=== PATIENT | male | born 1995 | race Caucasian/White ===

== ENCOUNTER 2018-02-19 22:50 | Emergency (ER) | payer OTHER ==
[2018-02-19 23:41] LABS: Absolute Lymphocytes (CBC) 3.4 K/uL (0.7-4.9); Absolute Monocytes 1.2 K/uL (0.1-1.3); Basophils % 0.4 % (0-1.3); Eosinophils % 2.8 % (0-4.4); Hematocrit 45.9 % (39.6-49.0); Lymphocytes % 28.7 % (15.3-44.8); MCH 30.7 pg (27.0-35.0); MPV 8.5 fL (7.6-11.3); Monocytes % 10.2 % (3.3-12.3); RBC Red Blood Cell Count 5.21 M/uL (4.33-5.43)
[2018-02-19 23:45] LABS: Protime INR 0.94
[2018-02-19 23:50] LABS: Barbiturates NEGATIVE (NEGATIVE); Benzodiazepines NEGATIVE (NEGATIVE); Cocaine NEGATIVE (NEGATIVE); METHAMPHETAM NEGATIVE (NEGATIVE); Methadone NEGATIVE (NEGATIVE); Opiates NEGATIVE (NEGATIVE); Phencyclidine NEGATIVE (NEGATIVE); THC Cannibis POSITIVE (NEGATIVE)
[2018-02-20 00:01] LABS: ALT/SGPT 31 U/L (12-78); AST/SGOT 18 U/L (15-37); Albumin 3.7 g/dL (3.4-5.0); Alkaline Phosphatase 83 U/L (45-117); BUN Blood Urea Nitrogen 12 mg/dL (7-18); Bicarbonate 25 mmol/L (21-32); Bilirubin Direct 0.1 mg/dL (0-0.2); Bilirubin Total 0.3 mg/dL (0.2-1.0); Glucose Level 118 mg/dL (74-106); Potassium 3.9 mmol/L (3.5-5.1); Protein, Total 7.7 g/dL (6.4-8.2); Sodium Level 140 mmol/L (136-145)
[2018-02-20 01:01] LABS: Urine Blood NEGATIVE (NEG); Urine Glucose NEGATIVE (NEG); Urine Protein 1+ (NEG); Urine pH 8.5 (5.0-7.0)
--- NOTE | 2018-02-20 02:56 | ER ---
Nurse's Notes [facility] Name: Kirk Cota Age: 22 yrs Sex: Male : 1995 Arrival Date: 02/19/2018 Time: 22:59 Bed 20 Private MD: Diagnosis: Unspecified abdominal pain;Cannabis abuse Presentation: 02/19 23:06 Presenting complaint: Patient states: generalized abd pain with nausea. Transition of ak1 care: patient was received from another setting of care (rehabilitation facility). Onset of symptoms is unknown. Risk Assessment: Do you want to hurt yourself or someone else? Patient reports no desire to harm self or others. Initial Sepsis Screen: Does the patient meet any 2 criteria? No. Patient's initial sepsis screen is negative. Does the patient have a suspected source of infection? No. Patient's initial sepsis screen is negative. Note pt from [facility] in [place]. 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 pt not answering questions willingly. pt has airfield engineer officer appointment Monday03/01/18 and expressed concert to Georges of returning to "residential". Care prior to arrival: None. 23:06 Acuity: MIRTA 3 ak1 23:06 Method Of Arrival: Wheelchair ak1 Historical: - Allergies: 23:10 No Known Allergies; ak1 - Home Meds: 23:10 None [Active]; ak1 - PMHx: 23:10 Seizures; Bipolar disorder; ak1 - PSHx: 23:10 None; ak1 - Immunization history:: Adult Immunizations unknown. - Social history:: Smoking status: Patient uses tobacco products, smokes two packs cigarettes per day. - Ebola Screening: : No symptoms or risks identified at this time. Screenin:11 Abuse screen: Denies threats or abuse. Denies injuries from another. Nutritional ak1 screening: No deficits noted. Tuberculosis screening: No symptoms or risk factors identified. Fall Risk None identified. Assessment: 23:07 General: Appears distressed, uncomfortable, unkempt, Behavior is inappropriate for age, jl3 uncooperative, Pt c/o abd pain, moaning, growling, making gutteral sounds. Family members responding for pt, state pt c/o abd pain. Family stases hx meth use. Pain: Complains of pain in abdomen. Vital Signs: 23:05 BP 150 / 90; Pulse 91; Resp 24; Temp 98.8(O); Pulse Ox 100% on R/A; Weight 90.72 kg ak1 (R); Height 6 ft. 1 in. (185.42 cm) (R); Pain 10/10; 02/20 00:51 BP 115 / 55; Pulse 67; Resp 14; Pulse Ox 98% ; Pain 3/10; jl3 03:23 BP 118 / 60; Pulse 68; Resp 16; Pulse Ox 100% ; Pain 0/10; jl3 02/19 23:05 Body Mass Index 26.39 (90.72 kg, 185.42 cm) ak1 ED Course: 02/19 22:59 Patient arrived in ED. jl3 22:59 Alfonso Tomas RN is Primary Nurse. jl3 23:00 Georges Spencer NP is PHCP. pm1 23:00 Osvaldo Hernandez MD is Attending Physician. pm1 23:08 Inserted saline lock: 22 gauge in right antecubital area, using aseptic technique. oe Blood collected. 23:09 Triage completed. ak1 23:10 Arm band placed on Patient placed in an exam room, on a stretcher, on cardiac specialist, ak1 on pulse oximetry, Patient notified of wait time. 23:11 Patient has correct armband on for positive identification. Placed in gown. Bed in low ak1 position. Call light in reach. Side rails up X2. Adult w/ patient. ekg monitor on. Pulse ox on. NIBP on. 23:56 Radiology exam delayed due to lab results not completed at this time. (BUN/Creatinine). kw1 02/20 01:[address] via wheelchair. kw1 01:35 CT Abd/Pelvis - W/Contrast: IV contrast only In Process Unspecified. EDMS 01:37 CT completed. Patient tolerated procedure well. Patient moved back from CT. kw1 02:55 Norbert Evans MD is Referral Physician. pm1 03:22 No provider procedures requiring assistance completed. IV discontinued, intact, jl3 bleeding controlled, No redness/swelling at site. Pressure dressing applied. Administered Medications: 03:04 Drug: GI Cocktail without - (Maalox Suspension 30 ml, Lidocaine Liquid 2 % 15 jl3 ml) Route: PO; 03:22 Follow up: Response: No adverse reaction jl3 Outcome: 02:55 Discharge ordered by . pm1 03:23 Discharged to home with friend. jl3 03:23 Condition: improved 03:23 Discharge instructions given to patient, friend, Prescriptions given X 1. 03:24 Patient left the ED. jl3 Signatures: Dispatcher [employer] EDAlfonso Ferris RN RN jl3 Kinjal House RN RN ak1 Georges Spencer, CAR UNLOADER CAR UNLOADER pm1 Rogelio Purcell Kimberly kw1
--- NOTE | 2018-02-20 02:56 | EDPHYS ---
Physician Documentation [facility] Name: Kirk Cota Age: 22 yrs Sex: Male : 1995 Arrival Date: 02/19/2018 Time: 22:59 Bed 20 Private MD: ED Physician Osvaldo Hernandez HPI: 02/20 00:00 This 22 yrs old Male presents to ER via Wheelchair with complaints of pm1 abdominal pain. 00:00 The patient presents with abdominal pain that is diffuse. Onset: The symptoms/episode pm1 began/occurred 3 month(s) ago. The symptoms do not radiate. Associated signs and symptoms: Pertinent negatives: nausea, vomiting, and diarrhea, chest pain, dysuria, fever, shortness of breath. The symptoms are described as burning. Modifying factors: The symptoms are alleviated by nothing, the symptoms are aggravated by food. Severity of pain: in the emergency department the pain is unchanged. The patient has not recently seen a physician. 00:00 [facility]. pm1 Historical: - Allergies: 02/19 23:10 No Known Allergies; ak1 - Home Meds: 23:10 None [Active]; ak1 - PMHx: 23:10 Seizures; Bipolar disorder; ak1 - PSHx: 23:10 None; ak1 - Immunization history:: Adult Immunizations unknown. - Social history:: Smoking status: Patient uses tobacco products, smokes two packs cigarettes per day. - Ebola Screening: : No symptoms or risks identified at this time. ROS: 02/20 00:00 Constitutional: Negative for fever, chills, and weight loss, Eyes: Negative for injury, pm1 pain, redness, and discharge, ENT: Negative for injury, pain, and discharge, Neck: Negative for injury, pain, and swelling, Cardiovascular: Negative for chest pain, palpitations, and edema, Respiratory: Negative for shortness of breath, cough, wheezing, and pleuritic chest pain. Back: Negative for injury and pain, : Negative for injury, bleeding, discharge, and swelling, MS/Extremity: Negative for injury and deformity, Skin: Negative for injury, rash, and discoloration, Neuro: Negative for headache, weakness, numbness, tingling, and seizure. Abdomen/GI: Positive for abdominal pain, Negative for nausea, vomiting, and diarrhea. Exam: 00:00 Constitutional: This is a well developed, well nourished patient who is awake, alert, pm1 and in no acute distress. Head/Face: Normocephalic, atraumatic. Eyes: Pupils equal round and reactive to light, extra-ocular motions intact. Lids and lashes normal. Conjunctiva and sclera are non-icteric and not injected. Cornea within normal limits. Periorbital areas with no swelling, redness, or edema. ENT: Nares patent. No nasal discharge, no septal abnormalities noted. Tympanic membranes are normal and external auditory canals are clear. Oropharynx with no redness, swelling, or masses, exudates, or evidence of obstruction, uvula midline. Mucous membranes moist. Neck: Trachea midline, no thyromegaly or masses palpated, and no cervical lymphadenopathy. Supple, full range of motion without nuchal rigidity, or vertebral point tenderness. No Meningismus. Chest/axilla: Normal chest wall appearance and motion. Nontender with no deformity. No lesions are appreciated. Cardiovascular: Regular rate and rhythm with a normal S1 and S2. No gallops, murmurs, or rubs. Normal PMI, no JVD. No pulse deficits. Respiratory: Lungs have equal breath sounds bilaterally, clear to auscultation and percussion. No rales, rhonchi or wheezes noted. No increased work of breathing, no retractions or nasal flaring. Abdomen/GI: Soft, non-tender, with normal bowel sounds. No distension or tympany. No guarding or rebound. No evidence of tenderness throughout. Back: No spinal tenderness. No costovertebral tenderness. Full range of motion. Skin: Warm, dry with normal turgor. Normal color with no rashes, no lesions, and no evidence of cellulitis. MS/ Extremity: Pulses equal, no cyanosis. Neurovascular intact. Full, normal range of motion. Vital Signs: 02/19 23:05 BP 150 / 90; Pulse 91; Resp 24; Temp 98.8(O); Pulse Ox 100% on R/A; Weight 90.72 kg ak1 (R); Height 6 ft. 1 in. (185.42 cm) (R); Pain 10/10; 02/20 00:51 BP 115 / 55; Pulse 67; Resp 14; Pulse Ox 98% ; Pain 3/10; jl3 03:23 BP 118 / 60; Pulse 68; Resp 16; Pulse Ox 100% ; Pain 0/10; jl3 02/19 23:05 Body Mass Index 26.39 (90.72 kg, 185.42 cm) ak1 MDM: 02/19 23:00 Patient medically screened. pm1 02/20 02:54 Data reviewed: vital signs. Data interpreted: Pulse oximetry: on room air is 98 %. pm1 Interpretation: normal. 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 02/19 23:05 Order name: Acetaminophen; Complete Time: 01:05 pm1 02/19 23:05 Order name: Basic Metabolic Panel; Complete Time: 01:05 pm1 02/19 23:05 Order name: CBC with Diff; Complete Time: 23:57 pm1 02/19 23:05 Order name: ETOH Level; Complete Time: 23:57 pm1 02/19 23:05 Order name: Hepatic Function; Complete Time: 01:05 pm1 02/19 23:05 Order name: PT-INR; Complete Time: 23:57 pm1 02/19 23:05 Order name: Ptt, Activated; Complete Time: 23:57 pm1 02/19 23:05 Order name: Salicylate; Complete Time: 23:57 pm1 02/19 23:05 Order name: Urine Drug Screen; Complete Time: 23:57 pm1 02/19 23:11 Order name: CT Abd/Pelvis - W/Contrast: IV contrast only pm1 02/19 23:28 Order name: Urine Dipstick--Ancillary (enter results); Complete Time: 01:05 cc 02/19 23:33 Order name: Troponin (emerg Dept Use Only) pm1 02/19 23:33 Order name: Troponin (Emerg Dept Use Only); Complete Time: 00:02 EDMS 02/19 23:05 Order name: EKG; Complete Time: 23:06 pm1 02/19 23:05 Order name: EKG - Nurse/Tech; Complete Time: 23:19 pm1 02/19 23:05 Order name: IV Saline Lock; Complete Time: 23:19 pm1 02/19 23:05 Order name: Labs collected and sent; Complete Time: 23:19 pm1 02/19 23:05 Order name: Urine Dipstick-Ancillary (obtain specimen); Complete Time: 23:19 pm1 Administered Medications: 03:04 Drug: GI Cocktail without - (Maalox Suspension 30 ml, Lidocaine Liquid 2 % 15 jl3 ml) Route: PO; 03:22 Follow up: Response: No adverse reaction jl3 Disposition: 03:30 Co-signature as Attending Physician, Osvaldo Hernandez MD. pkl Disposition: 02/20/18 02:55 Discharged to Home. Impression: Unspecified abdominal pain, Cannabis abuse. - Condition is Stable. - Discharge Instructions: Abdominal Pain, Adult, Cannabis Use Disorder. - Prescriptions for Pepcid 20 mg Oral Tablet - take 1 tablet by ORAL route every 12 hours for 10 days; 20 tablet. - Medication Reconciliation Form, Thank You Letter form. - Follow up: Emergency Department; When: As needed; Reason: Worsening of condition. Follow up: Norbert Evans MD; When: 2 - 3 days; Reason: Recheck today's complaints, Continuance of care, Re-evaluation by your physician. - Problem is new. - Symptoms have improved. Signatures: Dispatcher [employer] EDMS Osvaldo Hernandez MD MD pkl Alfonso Tomas RN RN jl3 Kinjal House RN RN ak1 Georges Spencer, GROCERY CLERK GROCERY CLERK pm1 Corrections: (The following items were deleted from the chart) 03:24 02:55 02/20/2018 02:55 Discharged to Home. Impression: Unspecified abdominal pain; jl3 Cannabis abuse. Condition is Stable. Forms are Medication Reconciliation Form, Thank You Letter, Antibiotic Education, Prescription Opioid Use. Follow up: Emergency Department; When: As needed; Reason: Worsening of condition. Follow up: Norbert Evans; When: 2 - 3 days; Reason: Recheck today's complaints, Continuance of care, Re-evaluation by your physician. Problem is new. Symptoms have improved. pm1
[2018-02-20] MEDS ORDERED: MAGNE/ALUM HYDROXD 30 ML UCUP ONE (03:04)
[2018-02-20] MEDS ORDERED: LIDOCAINE VISCOUS 2% SOLN 15 ML UDC ONE (03:04)
--- NOTE | 2018-02-20 06:20 | EKG ---
Test Date: 2018-02-19 Test Time: 23:31:47 Colorist: MEI MEASUREMENT RESULTS: Intervals: Rate: 79 TN: 152 QRSD: 88 QT: 320 QTc: 366 Novi: P: 41 TN: 152 QRS: -44 T: 48 INTERPRETIVE STATEMENTS: Normal sinus rhythm with sinus arrhythmia Left axis deviation ST abnormality, non specific Abnormal ECG No previous ECG available for comparison Electronically Signed On 02-20-18 06:19:59 CDT by Deshawn Thornton
--- NOTE | 2018-02-20 08:40 | RAD REPORT ---
EXAM DESCRIPTION: CT - Abdomen Pelvis W Contrast - 02/20/2018 3:17 am CLINICAL HISTORY: Abdominal pain with nausea. COMPARISON: none. TECHNIQUE: Computed axial tomography of the abdomen pelvis was obtained. 100 cc Isovue-300 was admin istered intravenously. Oral contrast was not requested which limits evaluation of bowel.A preliminary report was generated by [employer] and reviewed prior to this dictation All CT scans are performed using dose optimization technique as appropriate and may include automated exposure control or mA/KV adjustment according to patient size. FINDINGS: The liver, spleen, pancreas, adrenal and kidneys appear unremarkable. There is no evidence of diverticulitis. The appendix is normal A moderate amount of stool is present throughout the colon. A tiny umbilical hernia is seen. IMPRESSION: Moderate amount of stool throughout the colon
== END 2018-02-20 03:24 | disposition home or self-care (01) ==
LOC: ER 22:50
DX: F12.10 Cannabis abuse, uncomplicated (principal); F17.210 Nicotine dependence, cigarettes, uncomplicated
CPT/HCPCS: 36415; 74177; 80048; 80076; 80307; 80320; 80329; 81003; 84484; 85025; 85610; 85730; 93005; 99285

== ENCOUNTER 2018-04-25 20:48 | Emergency (ER) | payer OTHER ==
--- NOTE | 2018-04-25 21:39 | ER ---
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 Patient aj is awake and alert in triage. Reports HX of epilepsy, not currently taking medications. Transition of care: patient was not received from another setting of care. Onset of symptoms was April 25, 2018. Risk Assessment: Do you want to hurt yourself or someone else? Patient reports no desire to harm self or others. Initial Sepsis Screen: Does the patient meet any 2 criteria? No. Patient's initial sepsis screen is negative. Does the patient have a suspected source of infection? No. Patient's initial sepsis screen is negative. Care prior to arrival: None. 20:59 Method Of Arrival: Wheelchair aj 20:59 Acuity: MIRTA 3 aj Triage Assessment: 21:00 General: Appears in no apparent distress. comfortable, Behavior is calm, cooperative, aj appropriate for age. Pain: Denies pain. Neuro: Level of Consciousness is awake, alert, obeys commands, Oriented to person, place, time, situation, Appropriate for age Date Pitter are equal bilaterally Moves all extremities. Full function Speech is normal, Facial symmetry appears normal, Seizure activity reported prior to arrival. Respiratory: Airway is patent Respiratory effort is even, unlabored, Respiratory pattern is regular, symmetrical. Derm: Skin is intact, is healthy with good turgor, Skin is pink, warm \T\ dry. normal. Historical: - Allergies: 21:00 No Known Allergies; aj - Home Meds: 21:00 None [Active]; aj - PMHx: 21:00 Bipolar disorder; Seizures; aj - PSHx: 21:00 None; aj - Immunization history:: Adult Immunizations up to date. - Social history:: Smoking status: Patient uses tobacco products, smokes one pack cigarettes per day. - Ebola Screening: : Patient negative for fever greater than or equal to 101.5 degrees Fahrenheit, and additional compatible Ebola Virus Disease symptoms Patient denies exposure to infectious person Patient denies travel to an Ebola-affected area in the 21 days before illness onset No symptoms or risks identified at this time. Screenin:00 Abuse screen: Denies threats or abuse. Denies injuries from another. Nutritional aa1 screening: No deficits noted. Tuberculosis screening: No symptoms or risk factors identified. Fall Risk None identified. Assessment: 21:00 General: Appears in no apparent distress. comfortable, Behavior is calm, cooperative, aa1 appropriate for age. Pain: Denies pain. Neuro: Level of Consciousness is awake, alert, obeys commands, Oriented to person, place, time, situation, Moves all extremities. Full function Gait is steady, Speech is normal, Facial symmetry appears normal, Pupils are PERRLA, Denies blurred vision dizziness, headache. Cardiovascular: Denies chest pain, palpitations, Heart tones S1 S2 present Rhythm is regular. Respiratory: Airway is patent Respiratory effort is even, unlabored, Respiratory pattern is regular, symmetrical. GI: No signs and/or symptoms were reported involving the gastrointestinal system. : No signs and/or symptoms were reported regarding the genitourinary system. EENT: No signs and/or symptoms were reported regarding the EENT system. Derm: Skin is intact, is healthy with good turgor, Skin is pink, warm \T\ dry. Musculoskeletal: Circulation, motion, and sensation intact. Capillary refill < 3 seconds. 21:52 Reassessment: Patient appears in no apparent distress at this time. Patient is alert, aa1 oriented x 3, equal unlabored respirations, skin warm/dry/pink. Discussed d/c \T\ f/u instructions with pt \T\ friend; denies questions or concerns at this time Patient denies pain at this time. Patient states feeling better. Vital Signs: 21:00 BP 136 / 81; Pulse 91; Resp 18; Temp 98.6; Pulse Ox 99% on R/A; Weight 81.65 kg; Height aj 6 ft. 0 in. (182.88 cm); 21:52 BP 112 / 82; Pulse 85; Resp 18; Pulse Ox 99% on R/A; Pain 0/10; aa1 21:00 Body Mass Index 24.41 (81.65 kg, 182.88 cm) aj ED Course: 20:49 Patient arrived in ED. al2 21:00 Triage completed. aj 21:00 Arm band placed on left wrist. Patient placed in an exam room. aj 21:00 Patient has correct armband on for positive identification. Bed in low position. Call aa1 light in reach. personnel monitor on. Pulse ox on. NIBP on. Warm blanket given. 21:03 Umang Valladares MD is Attending Physician. 21:40 Charlie Gomez MD is Referral Physician. 21:48 Azalia Holley, RN is Primary Nurse. aa1 21:52 No provider procedures requiring assistance completed. Patient did not have IV access aa1 during this emergency room visit. Administered Medications: 21:52 Drug: Dilantin 500 mg Route: PO; aa1 21:54 Follow up: Response: Medication administered at discharge. aa1 Outcome: 21:39 Discharge ordered by MD. 21:52 Discharged to home ambulatory, with friend. aa1 21:52 Condition: good 21:52 Discharge instructions given to patient, Instructed on discharge instructions, follow up and referral plans. medication usage, Demonstrated understanding of instructions, follow-up care, medications, Prescriptions given X 1. 21:55 Patient left the ED. aa1 Signatures: Azalia Holley, JAMARCUS RN aa Radha Hart RN RN Umang Valladares MD MD gs Love, Mague bell
--- NOTE | 2018-04-25 21:40 | EDPHYS ---
Physician Documentation [facility] Name: Kirk Cota Age: 22 yrs Sex: Male : 1995 Arrival Date: 04/25/2018 Time: 20:49 Bed 20 Private MD: ED Physician Umang Valladares HPI: 04/25 21:33 This 22 yrs old Male presents to ER via Wheelchair with complaints of gs POSSIBLE SEIZURE. 21:33 The patient presents after having a single isolated seizure, that lasted. Character of gs seizure(s): Loss of consciousness: the patient experienced loss of consciousness, Motor activity: generalized, Incontinence: incontinent of bladder. Seizure onset: just prior to arrival. Seizure Hx: Last seizure: The patient's last seizure was approximately 1 week(s) ago, has been on dilantin when incarcerated, now out and out of meds having seizures. Historical: - Allergies: 21:00 No Known Allergies; aj - Home Meds: 21:00 None [Active]; aj - PMHx: 21:00 Bipolar disorder; Seizures; aj - PSHx: 21:00 None; aj - Immunization history:: Adult Immunizations up to date. - Social history:: Smoking status: Patient uses tobacco products, smokes one pack cigarettes per day. - Ebola Screening: : Patient negative for fever greater than or equal to 101.5 degrees Fahrenheit, and additional compatible Ebola Virus Disease symptoms Patient denies exposure to infectious person Patient denies travel to an Ebola-affected area in the 21 days before illness onset No symptoms or risks identified at this time. ROS: 21:33 All other systems are negative. gs Exam: 21:33 Head/Face: Normocephalic, atraumatic. Eyes: Pupils equal round and reactive to light, gs extra-ocular motions intact. Lids and lashes normal. Conjunctiva and sclera are non-icteric and not injected. Cornea within normal limits. Periorbital areas with no swelling, redness, or edema. ENT: Nares patent. No nasal discharge, no septal abnormalities noted. Tympanic membranes are normal and external auditory canals are clear. Oropharynx with no redness, swelling, or masses, exudates, or evidence of obstruction, uvula midline. Mucous membranes moist. Neck: Trachea midline, no thyromegaly or masses palpated, and no cervical lymphadenopathy. Supple, full range of motion without nuchal rigidity, or vertebral point tenderness. No Meningismus. Chest/axilla: Normal chest wall appearance and motion. Nontender with no deformity. No lesions are appreciated. Cardiovascular: Regular rate and rhythm with a normal S1 and S2. No gallops, murmurs, or rubs. Normal PMI, no JVD. No pulse deficits. Respiratory: Lungs have equal breath sounds bilaterally, clear to auscultation and percussion. No rales, rhonchi or wheezes noted. No increased work of breathing, no retractions or nasal flaring. Abdomen/GI: Soft, non-tender, with normal bowel sounds. No distension or tympany. No guarding or rebound. No evidence of tenderness throughout. Back: No spinal tenderness. No costovertebral tenderness. Full range of motion. Skin: Warm, dry with normal turgor. Normal color with no rashes, no lesions, and no evidence of cellulitis. MS/ Extremity: Pulses equal, no cyanosis. Neurovascular intact. Full, normal range of motion. Neuro: Awake and alert, GCS 15, oriented to person, place, time, and situation. Cranial nerves II-XII grossly intact. Motor strength 5/5 in all extremities. Sensory grossly intact. Cerebellar exam normal. Normal gait. 21:33 Constitutional: The patient appears alert, awake. Vital Signs: 21:00 BP 136 / 81; Pulse 91; Resp 18; Temp 98.6; Pulse Ox 99% on R/A; Weight 81.65 kg; Height aj 6 ft. 0 in. (182.88 cm); 21:52 BP 112 / 82; Pulse 85; Resp 18; Pulse Ox 99% on R/A; Pain 0/10; aa1 21:00 Body Mass Index 24.41 (81.65 kg, 182.88 cm) aj MDM: 21:30 Patient medically screened. 21:33 Data reviewed: vital signs, nurses notes. Counseling: I had a detailed discussion with gs the patient and/or guardian regarding: the historical points, exam findings, and any diagnostic results supporting the discharge/admit diagnosis, the presence of at least one elevated blood pressure reading (>120/80) during this emergency department visit, lab results. Response to treatment: the patient's symptoms have resolved after treatment, and as a result, I will discharge patient. Special discussion: I have referred the patient to see his PCP for further evaluation of high blood pressure. Administered Medications: 21:52 Drug: Dilantin 500 mg Route: PO; aa1 21:54 Follow up: Response: Medication administered at discharge. aa1 Disposition: 04/25/18 21:39 Discharged to Home. Impression: Epilepsy and recurrent seizures. - Condition is Stable. - Discharge Instructions: Seizure, Adult. - Prescriptions for Dilantin Kapseal 100 mg Oral Capsule - take 3 capsule by ORAL route Every night; 30 capsule. - Medication Reconciliation Form, Thank You Letter, Antibiotic Education, Prescription Opioid Use form. - Follow up: Private Physician; When: 2 - 3 days; Reason: Re-evaluation by your physician. Follow up: Charlie Gomez MD; When: 2 - 3 days; Reason: Re-evaluation by your physician. Signatures: Azalia Holley RN RN aa1 Radha Hart RN RN aj Umang Valladares MD MD Corrections: (The following items were deleted from the chart) 21:40 21:39 04/25/2018 21:39 Discharged to Home. Impression: Epilepsy and recurrent seizures. gs Condition is Stable. Forms are Medication Reconciliation Form, Thank You Letter, Antibiotic Education, Prescription Opioid Use. Follow up: Private Physician; When: 2 - 3 days; Reason: Re-evaluation by your physician. 21:55 21:40 04/25/2018 21:39 Discharged to Home. Impression: Epilepsy and recurrent seizures. aa1 Condition is Stable. Discharge Instructions: Seizure, Adult. Prescriptions for Dilantin Kapseal 100 mg Oral Capsule - take 3 capsule by ORAL route Every night; 30 capsule. and Forms are Medication Reconciliation Form, Thank You Letter, Antibiotic Education, Prescription Opioid Use. Follow up: Private Physician; When: 2 - 3 days; Reason: Re-evaluation by your physician. Follow up: Charlie Gomez; When: 2 - 3 days; Reason: Re-evaluation by your physician. gs
[2018-04-25] MEDS ORDERED: PHENYTOIN ER 100 MG CAP PO ONE (21:51)
== END 2018-04-25 21:55 | disposition home or self-care (01) ==
LOC: ER 20:48
DX: G40.909 Epilepsy, unspecified, not intractable, without status epilepticus (principal); F17.210 Nicotine dependence, cigarettes, uncomplicated
CPT/HCPCS: 99284

== ENCOUNTER 2018-05-08 20:49 | Emergency (ER) | payer OTHER ==
[2018-05-08] MEDS ORDERED: FOSPHENYTOIN PE 500 MG/10 ML VIAL ONE (21:21)
[2018-05-08] MEDS ORDERED: NA CHLORIDE 0.9% 1,000 ML ONE (21:21)
[2018-05-08] MEDS ORDERED: NA CHLORIDE 0.9% 100 ML IV ONE (21:24)
[2018-05-08 21:34] LABS: Absolute Lymphocytes (CBC) 2.4 K/uL (0.7-4.9); Absolute Monocytes 0.9 K/uL (0.1-1.3); Absolute Neutrophil 5.1 K/uL (1.8-8.0); Basophils % 0.8 % (0-1.3); Eosinophils % 4.1 % (0-4.4); Hematocrit 41.9 % (39.6-49.0); Lymphocytes % 27.3 % (15.3-44.8); MPV 8.1 fL (7.6-11.3); Monocytes % 9.9 % (3.3-12.3); RBC Red Blood Cell Count 4.64 M/uL (4.33-5.43)
[2018-05-08] MEDS ORDERED: IBUPROFEN 400 MG TAB ONE (21:47)
[2018-05-08 22:04] LABS: ALT/SGPT 27 U/L (12-78); AST/SGOT 14 U/L (15-37); Albumin 3.2 g/dL (3.4-5.0); Alkaline Phosphatase 74 U/L (45-117); BUN Blood Urea Nitrogen 18 mg/dL (7-18); Bicarbonate 26 mmol/L (21-32); Bilirubin Direct < 0.1 mg/dL (0-0.2); Bilirubin Total 0.1 mg/dL (0.2-1.0); Glucose Level 100 mg/dL (74-106); Lipase 160 U/L (73-393); Phenytoin (Dilantin) Level 3.5 ug/mL (10.0-20.0); Potassium 3.7 mmol/L (3.5-5.1); Protein, Total 7.1 g/dL (6.4-8.2); Sodium Level 141 mmol/L (136-145)
--- NOTE | 2018-05-08 22:36 | ER ---
Nurse's Notes [facility] Emergency Department Name: Kirk Cota Age: 22 yrs Sex: Male : 1995 Arrival Date: 05/08/2018 Time: 20:59 Bed 5 Private MD: Diagnosis: Epileptic seizures related to external causes, not intractable;Patient's unintentional underdosing of medication regimen for other reason-Out of medications Presentation: 05/08 20:59 Presenting complaint: EMS states: Pt had 5 seizures prior to our arrival, 1 with us. we jd3 placed an 18 G left AC, and gave 2 of Ativan.". Transition of care: patient was not received from another setting of care. Onset of symptoms was May 08, 2018. Risk Assessment: Do you want to hurt yourself or someone else? Patient reports no desire to harm self or others. Initial Sepsis Screen: Does the patient meet any 2 criteria? No. Patient's initial sepsis screen is negative. Does the patient have a suspected source of infection? No. Patient's initial sepsis screen is negative. Care prior to arrival: None. 20:59 Method Of Arrival: EMS: [facility] jd3 20:59 Acuity: MIRTA 3 jd3 Historical: - Allergies: 21:02 No Known Allergies; jd3 - Home Meds: 21:02 None [Active]; jd3 - PMHx: 21:02 Bipolar disorder; Seizures; jd3 - PSHx: 21:02 left foot sx; jd3 - Immunization history:: Adult Immunizations up to date. - Social history:: Smoking status: Patient uses tobacco products, smokes three packs cigarettes per day. chewing tobacco. - Ebola Screening: : Patient negative for fever greater than or equal to 101.5 degrees Fahrenheit, and additional compatible Ebola Virus Disease symptoms. Screenin:06 Abuse screen: Denies threats or abuse. Nutritional screening: No deficits noted. jd3 Tuberculosis screening: No symptoms or risk factors identified. Fall Risk IV access (20 points). Ambulatory Aid- None/Bed Rest/Nurse Assist (0 pts). Gait- Normal/Bed Rest/Wheelchair (0 pts) Mental Status- Oriented to own ability (0 pts). Total Milner Fall Scale indicates No Risk (0-24 pts). Assessment: 21:04 General: Appears uncomfortable, Behavior is calm, cooperative, appropriate for age. jd3 Pain: Complains of pain in head, chest and posterior chest Quality of pain is described as aching. Neuro: Level of Consciousness is awake, alert, obeys commands, Oriented to person, place, time, situation, Appropriate for age Moves all extremities. Full function Speech is normal, Facial symmetry appears normal, Pupils are PERRLA, Reports seizures. Cardiovascular: Capillary refill < 3 seconds Patient's skin is warm and dry. Respiratory: Airway is patent Respiratory effort is even, unlabored, Respiratory pattern is regular, symmetrical. GI: No signs and/or symptoms were reported involving the gastrointestinal system. : No signs and/or symptoms were reported regarding the genitourinary system. EENT: No signs and/or symptoms were reported regarding the EENT system. Derm: Skin is intact, Skin is dry, Skin is normal, Skin temperature is warm. Musculoskeletal: Circulation, motion, and sensation intact. Range of motion: intact in all extremities. 22:13 Reassessment: Patient appears in no apparent distress at this time. Patient and/or jd3 family updated on plan of care and expected duration. Pain level reassessed. Patient is alert, oriented x 3, equal unlabored respirations, skin warm/dry/pink. Vital Signs: 21:02 BP 127 / 80; Pulse 113; Resp 16 S; Temp 98.8(O); Pulse Ox 99% on R/A; Weight 90.72 kg jd3 (R); Height 6 ft. 1 in. (185.42 cm) (R); Pain 8/10; 22:12 BP 123 / 82; Pulse 100; Resp 17 S; Pulse Ox 97% on R/A; jd3 21:02 Body Mass Index 26.39 (90.72 kg, 185.42 cm) jd3 ED Course: 20:59 Patient arrived in ED. bb 20:59 Apolinar Ohara, JAMARCUS is Primary Nurse. jd3 20:59 Maintain EMS IV. Dressing intact. Good blood return noted. Site clean \\T\\ dry. Gauge \\T\\ wesely 3 site: 20 G to left AC. IV is patent, is intact, with fluids infusing freely, with good blood return. 21:01 Roderick Carrillo MD is Attending Physician. rn 21:01 Carmela, Riya, AIRPLANE CAPTAIN-C is PHCP. snw 21:01 Triage completed. jd3 21:03 Arm band placed on. jd3 21:06 Patient has correct armband on for positive identification. Bed in low position. Call jd3 light in reach. Side rails up X2. 22:07 Lumbar Spine (3 Views) XRAY In Process Unspecified. EDMS 23:17 No provider procedures requiring assistance completed. IV discontinued, intact, jd3 bleeding controlled, No redness/swelling at site. Pressure dressing applied. Administered Medications: 21:22 Drug: NS 0.9% 1000 ml Route: IV; Rate: 1 bolus; Site: left antecubital; jd3 23:14 Follow up: Response: No adverse reaction; IV Status: Completed infusion jd3 21:22 Drug: Fosphenytoin 1 grams Route: IVPB; Site: left antecubital; jd3 23:13 Follow up: Response: No adverse reaction; IV Status: Completed infusion jd3 21:40 Drug: Motrin 400 mg Route: PO; jd3 23:13 Follow up: Response: No adverse reaction jd3 Outcome: 22:35 Discharge ordered by . snw 23:19 Discharged to home ambulatory, with family. jd3 23:19 Condition: stable 23:19 Discharge instructions given to patient, family, Instructed on discharge instructions, follow up and referral plans. medication usage, Demonstrated understanding of instructions, follow-up care, medications, Prescriptions given X 2. 23:20 Patient left the ED. jd3 Signatures: Dispatcher [employer] EDCO Riya Casey, ROBBIN AIRPLANE CAPTAIN-Csnw Sneha Ryan RN RN bb Nieto, Roman, MD MD rn Davies, Jonathon, RN RN jd3 Corrections: (The following items were deleted from the chart) 23:19 23:17 Maintain EMS IV. Dressing intact. Good blood return noted. Site clean \\T\\ dry. jd3 Gauge \\T\\ site: 20 G to left AC. IV is patent, is intact, with fluids infusing freely, with good blood return, jd3
--- NOTE | 2018-05-08 22:36 | EDPHYS ---
Physician Documentation [facility] Name: Kirk Cota Age: 22 yrs Sex: Male : 1995 Arrival Date: 05/08/2018 Time: 20:59 Bed 5 Private MD: ED Physician Roderick Carrillo HPI: 05/08 21:02 This 22 yrs old Male presents to ER via EMS with complaints of seizure. snw 21:02 The patient presents after having a single isolated seizure. Character of seizure(s): snw Loss of consciousness: the patient experienced loss of consciousness, Motor activity: "locked up", Incontinence: none, Apnea: the patient did not experience apnea, Circulation: the patient did not experience evidence of pulse disturbance. Seizure onset: just prior to arrival. Context: the seizure(s) was witnessed, by a bystander, occurred Bible study. Seizure Hx: Cause: epilepsy, Last seizure: The patient's last seizure "not sure", Usual frequency: unknown, Seizure medications: phenytoin. Associated injury: The patient did not suffer any apparent associated injury. EMS care: supplemental oxygen, SL. Current symptoms: Currently, the patient is not experiencing any symptoms. The patient has experienced similar episodes in the past. ED this month. out of Phenytoin. 21:05 Pt states he has an appt with Neuro on Monday. snw Historical: - Allergies: 21:02 No Known Allergies; jd3 - Home Meds: 21:02 None [Active]; jd3 - PMHx: 21:02 Bipolar disorder; Seizures; jd3 - PSHx: 21:02 left foot sx; jd3 - Immunization history:: Adult Immunizations up to date. - Social history:: Smoking status: Patient uses tobacco products, smokes three packs cigarettes per day. chewing tobacco. - Ebola Screening: : Patient negative for fever greater than or equal to 101.5 degrees Fahrenheit, and additional compatible Ebola Virus Disease symptoms. ROS: 21:04 Constitutional: Negative for fever, chills, and weight loss, Eyes: Negative for injury, snw pain, redness, and discharge, ENT: Negative for injury, pain, and discharge, Neck: Negative for injury, pain, and swelling, Cardiovascular: Negative for chest pain, palpitations, and edema, Respiratory: Negative for shortness of breath, cough, wheezing, and pleuritic chest pain, Abdomen/GI: Negative for abdominal pain, nausea, vomiting, diarrhea, and constipation, Back: Negative for injury and pain, : Negative for injury, bleeding, discharge, and swelling, MS/Extremity: Negative for injury and deformity, Skin: Negative for injury, rash, and discoloration. 21:04 Neuro: Positive for seizure activity. Exam: 21:05 Constitutional: This is a well developed, well nourished patient who is awake, alert, snw and in no acute distress. Head/Face: Normocephalic, atraumatic. Eyes: Pupils equal round and reactive to light, extra-ocular motions intact. Lids and lashes normal. Conjunctiva and sclera are non-icteric and not injected. Cornea within normal limits. Periorbital areas with no swelling, redness, or edema. ENT: Nares patent. No nasal discharge, no septal abnormalities noted. Tympanic membranes are normal and external auditory canals are clear. Oropharynx with no redness, swelling, or masses, exudates, or evidence of obstruction, uvula midline. Mucous membranes moist. Neck: Trachea midline, no thyromegaly or masses palpated, and no cervical lymphadenopathy. Supple, full range of motion without nuchal rigidity, or vertebral point tenderness. No Meningismus. Chest/axilla: Normal chest wall appearance and motion. Nontender with no deformity. No lesions are appreciated. Cardiovascular: Regular rate and rhythm with a normal S1 and S2. No gallops, murmurs, or rubs. Normal PMI, no JVD. No pulse deficits. Respiratory: Lungs have equal breath sounds bilaterally, clear to auscultation and percussion. No rales, rhonchi or wheezes noted. No increased work of breathing, no retractions or nasal flaring. Abdomen/GI: Soft, non-tender, with normal bowel sounds. No distension or tympany. No guarding or rebound. No evidence of tenderness throughout. Back: No spinal tenderness. No costovertebral tenderness. Full range of motion. Skin: Warm, dry with normal turgor. Normal color with no rashes, no lesions, and no evidence of cellulitis. MS/ Extremity: Pulses equal, no cyanosis. Neurovascular intact. Full, normal range of motion. Psych: Awake, alert, with orientation to person, place and time. Behavior, mood, and affect are within normal limits. 21:05 Neuro: Orientation: is normal, Mentation: appropriate for stated age, no acute changes, Memory: immediate memory is intact, recent memory is impaired, Cranial nerves: grossly normal, Cerebellar function: is grossly normal, Motor: is normal, seizure activity, is not displayed by the patient. Vital Signs: 21:02 BP 127 / 80; Pulse 113; Resp 16 S; Temp 98.8(O); Pulse Ox 99% on R/A; Weight 90.72 kg jd3 (R); Height 6 ft. 1 in. (185.42 cm) (R); Pain 8/10; 22:12 BP 123 / 82; Pulse 100; Resp 17 S; Pulse Ox 97% on R/A; jd3 21:02 Body Mass Index 26.39 (90.72 kg, 185.42 cm) jd3 MDM: 21:01 Patient medically screened. rn 22:38 Data reviewed: vital signs, nurses notes. Data interpreted: Pulse oximetry: on room air snw is 97 %. Interpretation: acceptable. Counseling: I had a detailed discussion with the patient and/or guardian regarding: the historical points, exam findings, and any diagnostic results supporting the discharge/admit diagnosis, the presence of at least one elevated blood pressure reading (>120/80) during this emergency department visit, lab results, radiology results, the need for outpatient follow up, to return to the emergency department if symptoms worsen or persist or if there are any questions or concerns that arise at home. Special discussion: Based on the history and exam findings, there is no indication for further emergent testing or inpatient evaluation. I discussed with the patient/guardian the need to see the neurologist for further evaluation of the symptoms. ED course: Pt states his Aunt is taking him to a Neurologist appt on Monday this week. 05/08 21:06 Order name: Basic Metabolic Panel; Complete Time: 22:07 snw 05/08 21:06 Order name: CBC with Diff; Complete Time: 21:56 snw 05/08 21:06 Order name: Creatinine for Radiology; Complete Time: 21:56 snw 05/08 21:06 Order name: Hepatic Function; Complete Time: 22:07 snw 05/08 21:06 Order name: Lipase; Complete Time: 22:07 snw 05/08 21:06 Order name: Urine Culture snw 05/08 21:06 Order name: IV Saline Lock; Complete Time: 21:07 snw 05/08 21:06 Order name: Urine Drug Screen sn 05/08 21:06 Order name: Urine Microscopic Only snw 05/08 21:07 Order name: Dilantin; Complete Time: 22:07 snw 05/08 21:28 Order name: Lumbar Spine (3 Views) XRAY sn 05/08 21:06 Order name: Labs collected and sent; Complete Time: 21:23 snw 05/08 21:06 Order name: Urine Dipstick-Ancillary (obtain specimen); Complete Time: 23:14 snw 05/08 21:07 Order name: Seizure Precautions; Complete Time: 21:07 snw Administered Medications: 21:22 Drug: NS 0.9% 1000 ml Route: IV; Rate: 1 bolus; Site: left antecubital; jd3 23:14 Follow up: Response: No adverse reaction; IV Status: Completed infusion jd3 21:22 Drug: Fosphenytoin 1 grams Route: IVPB; Site: left antecubital; jd3 23:13 Follow up: Response: No adverse reaction; IV Status: Completed infusion jd3 21:40 Drug: Motrin 400 mg Route: PO; jd3 23:13 Follow up: Response: No adverse reaction jd3 Disposition: 05/09 01:06 Co-signature as Attending Physician, Roderick Carrillo MD. rn Disposition: 05/08/18 22:35 Discharged to Home. Impression: Epileptic seizures related to external causes, not intractable, Patient's unintentional underdosing of medication regimen for other reason - Out of medications. - Condition is Stable. - Discharge Instructions: Medicine Refill at the Emergency Department, Seizure, Adult. - Prescriptions for Phenytoin Sodium Extended 300 mg Oral Capsule - take 1 capsule by ORAL route once daily; 30 capsule. - Medication Reconciliation Form, Thank You Letter, Antibiotic Education, Prescription Opioid Use form. - Follow up: Private Physician; When: 2 - 3 days; Reason: Recheck today's complaints, Continuance of care, Re-evaluation by your physician. Follow up: Emergency Department; When: As needed; Reason: Worsening of condition. Signatures: Dispatcher [employer] EDRiya Moran, DIRECTOR CHILD ABUSE THERAPY-C DIRECTOR CHILD ABUSE THERAPY-Csnw Roderick Carrillo MD MD rn Davies, Jonathon, RN RN jd3 Corrections: (The following items were deleted from the chart) 05/08 23:20 22:35 05/08/2018 22:35 Discharged to Home. Impression: Epileptic seizures related to jd3 external causes, not intractable; Patient's unintentional underdosing of medication regimen for other reason - Out of medications. Condition is Stable. Forms are Medication Reconciliation Form, Thank You Letter, Antibiotic Education, Prescription Opioid Use. Follow up: Private Physician; When: 2 - 3 days; Reason: Recheck today's complaints, Continuance of care, Re-evaluation by your physician. Follow up: Emergency Department; When: As needed; Reason: Worsening of condition. snw
[2018-05-08 23:36] LABS: Barbiturates NEGATIVE (NEGATIVE); Benzodiazepines NEGATIVE (NEGATIVE); Cocaine NEGATIVE (NEGATIVE); METHAMPHETAM NEGATIVE (NEGATIVE); Methadone NEGATIVE (NEGATIVE); Opiates NEGATIVE (NEGATIVE); Phencyclidine NEGATIVE (NEGATIVE); THC Cannibis NEGATIVE (NEGATIVE)
[2018-05-09 01:12] LABS: Urine Bacteria <20 /HPF (NONE SEEN); Urine Culture Reflex Order NOT NEEDED; Urine RBC <5 /HPF (NONE SEEN)
--- NOTE | 2018-05-09 07:10 | RAD REPORT ---
EXAM DESCRIPTION: RAD - Lumbar Spine 3 Views - 05/08/2018 10:08 pm CLINICAL HISTORY: Seizure, back pain COMPARISON: None. FINDINGS: A three-view lumbar spine examination was performed. Lumbar bodies are normal in height an d alignment. No fracture or acute bony process seen. No disc space narrowing. No other significant fi ndings. No pars defects identified. IMPRESSION: Negative Lumbar Spine examination.
== END 2018-05-08 23:20 | disposition home or self-care (01) ==
LOC: ER 20:49
DX: G40.509 Epileptic seizures related to external causes, not intractable, without status epilepticus (principal); Z91.128 Patient's intentional underdosing of medication regimen for other reason; Z72.0 Tobacco use
CPT/HCPCS: 36415; 72100; 80048; 80076; 80185; 80307 ×8; 81015; 83690; 85025; 87088; 96365; 96366; 99284; J7030; Q2009; 87086

== ENCOUNTER 2018-05-09 22:11 | Observation (INO) | payer OTHER ==
[2018-05-09 22:38] LABS: Protime INR 1.01
[2018-05-09] MEDS ORDERED: NA CHLORIDE 0.9% 100 ML IV ONE (22:38)
[2018-05-09 22:39] LABS: Absolute Monocytes 0.8 K/uL (0.1-1.3); Absolute Neutrophil 5.9 K/uL (1.8-8.0); Basophils % 0.6 % (0-1.3); Eosinophils % 2.2 % (0-4.4); Hematocrit 41.5 % (39.6-49.0); Lymphocytes % 22.2 % (15.3-44.8); MPV 8.2 fL (7.6-11.3); Monocytes % 9.4 % (3.3-12.3); RBC Red Blood Cell Count 4.67 M/uL (4.33-5.43)
[2018-05-09] MEDS ORDERED: NA CHLORIDE 0.9% 1,000 ML ONE (22:40)
[2018-05-09] MEDS ORDERED: FOSPHENYTOIN PE 500 MG/10 ML VIAL ONE (22:40)
[2018-05-09 22:51] LABS: ALT/SGPT 26 U/L (12-78); AST/SGOT 14 U/L (15-37); Albumin 3.3 g/dL (3.4-5.0); Alkaline Phosphatase 75 U/L (45-117); BUN Blood Urea Nitrogen 13 mg/dL (7-18); Bicarbonate 27 mmol/L (21-32); Bilirubin Direct < 0.1 mg/dL (0-0.2); Bilirubin Total 0.2 mg/dL (0.2-1.0); Glucose Level 125 mg/dL (74-106); Phenytoin (Dilantin) Level 10.3 ug/mL (10.0-20.0); Potassium 3.5 mmol/L (3.5-5.1); Protein, Total 7.1 g/dL (6.4-8.2); Sodium Level 140 mmol/L (136-145)
[2018-05-09] MEDS ORDERED: LORazepam 2 MG/ML VIAL ONE (23:13)
--- NOTE | 2018-05-09 23:54 | EDPHYS ---
Physician Documentation [facility] Name: Kirk Cota Age: 22 yrs Sex: Male : 1995 Arrival Date: 05/09/2018 Time: 22:13 Bed 19 Private MD: Lawrence Tate HPI: 05/09 23:45 This 22 yrs old Male presents to ER via EMS with complaints of post seizure justin attack. 23:45 The patient presents after having a single isolated seizure, that lasted 30 second(s), justin with a history of multiple seizures, a total of 4. Character of seizure(s): Loss of consciousness: the patient experienced loss of consciousness, Motor activity: generalized, Incontinence: none, Apnea: the patient did not experience apnea, Circulation: the patient did not experience evidence of pulse disturbance. Seizure onset: just prior to arrival. Context: the seizure(s) was witnessed, by a bystander, by family, occurred at home, occurred while the patient was at rest, Contributing factors: unknown. Seizure Hx: Cause: unknown, Last seizure: The patient's last seizure was approximately 1 day(s) ago. Associated injury: The patient did not suffer any apparent associated injury. The patient has not experienced similar symptoms in the past. Historical: - Allergies: 05/10 00:21 No Known Allergies; rr5 - Home Meds: 00:21 Dilantin Oral [Active]; rr5 - PMHx: 00:21 Bipolar disorder; Seizures; rr5 - PSHx: 05/09 22:53 Unable to obtain; rr5 05/10 00:21 toe surgery; rr5 - Immunization history:: Adult Immunizations unknown, Adult Immunizations up to date, Flu vaccine is up to date. - Social history:: Smoking status: unknown Smoking status: Patient uses tobacco products, smokes three packs cigarettes per day. Patient/guardian denies using alcohol, street drugs. - Ebola Screening: : Unable to complete screening because patient is unresponsive. - Family history:: not pertinent. ROS: 05/09 23:45 Constitutional: Negative for fever, chills, and weight loss, Eyes: Negative for injury, justin pain, redness, and discharge, ENT: Negative for injury, pain, and discharge, Neck: Negative for injury, pain, and swelling, Cardiovascular: Negative for chest pain, palpitations, and edema, Respiratory: Negative for shortness of breath, cough, wheezing, and pleuritic chest pain, Abdomen/GI: Negative for abdominal pain, nausea, vomiting, diarrhea, and constipation, Back: Negative for injury and pain, : Negative for injury, bleeding, discharge, and swelling, MS/Extremity: Negative for injury and deformity, Skin: Negative for injury, rash, and discoloration, Psych: Negative for depression, anxiety, suicide ideation, homicidal ideation, and hallucinations, Allergy/Immunology: Negative for hives, rash, and allergies, Endocrine: Negative for neck swelling, polydipsia, polyuria, polyphagia, and marked weight changes, Hematologic/Lymphatic: Negative for swollen nodes, abnormal bleeding, and unusual bruising. Neuro: Positive for seizure activity. Exam: 23:45 Constitutional: This is a well developed, well nourished patient who is awake, alert, justin and in no acute distress. Head/Face: Normocephalic, atraumatic. Eyes: Pupils equal round and reactive to light, extra-ocular motions intact. Lids and lashes normal. Conjunctiva and sclera are non-icteric and not injected. Cornea within normal limits. Periorbital areas with no swelling, redness, or edema. ENT: Nares patent. No nasal discharge, no septal abnormalities noted. Tympanic membranes are normal and external auditory canals are clear. Oropharynx with no redness, swelling, or masses, exudates, or evidence of obstruction, uvula midline. Mucous membranes moist. Neck: Trachea midline, no thyromegaly or masses palpated, and no cervical lymphadenopathy. Supple, full range of motion without nuchal rigidity, or vertebral point tenderness. No Meningismus. Chest/axilla: Normal chest wall appearance and motion. Nontender with no deformity. No lesions are appreciated. Cardiovascular: Regular rate and rhythm with a normal S1 and S2. No gallops, murmurs, or rubs. Normal PMI, no JVD. No pulse deficits. Respiratory: Lungs have equal breath sounds bilaterally, clear to auscultation and percussion. No rales, rhonchi or wheezes noted. No increased work of breathing, no retractions or nasal flaring. Abdomen/GI: Soft, non-tender, with normal bowel sounds. No distension or tympany. No guarding or rebound. No evidence of tenderness throughout. Back: No spinal tenderness. No costovertebral tenderness. Full range of motion. Male : Normal genitalia with no discharge or lesions. Skin: Warm, dry with normal turgor. Normal color with no rashes, no lesions, and no evidence of cellulitis. MS/ Extremity: Pulses equal, no cyanosis. Neurovascular intact. Full, normal range of motion. Psych: Awake, alert, with orientation to person, place and time. Behavior, mood, and affect are within normal limits. 23:45 Neuro: Orientation: unable to test, Mentation: confused, Memory: unable to test, Cranial nerves: is grossly normal based on the patient's age, no acute changes, Cerebellar function: unable to test, Motor: moves all fours, Sensation: unable to test, Gait: not tested. Babinski testing is normal, seizure activity, grand mal type is displayed. Vital Signs: 22:35 BP 134 / 76; Pulse 82; Resp 88; Temp 99.1; Pulse Ox 99% on 10% Non-rebreather mask; rr5 Weight 90.72 kg; Height 5 ft. 11 in. (180.34 cm); 22:52 BP 127 / 79; Pulse 85; Resp 17; Pulse Ox 99% on 2 lpm NC; rr5 23:23 Pulse 133; Pulse Ox 99% on 10% Non-rebreather mask; rr5 23:35 BP 126 / 70; Pulse 80; Resp 16; Pulse Ox 99% on 10% Non-rebreather mask; rr5 20 00:00 BP 131 / 66; Pulse 80; Resp 16; Pulse Ox 99% on R/A; rr5 00:21 Weight 92.99 kg; Height 6 ft. 1 in. (185.42 cm) (R); rr5 01:26 BP 131 / 70; Pulse 82; Resp 18; Pulse Ox 98% on R/A; rr5 02:03 BP 99 / 51; Pulse 80; Resp 16; Temp 97.5(O); Pulse Ox 96% ; rr5 02:15 BP 107 / 57; Pulse 79; Resp 16; Pulse Ox 99% ; rr5 00:21 Body Mass Index 27.05 (92.99 kg, 185.42 cm) rr5 05/09 22:35 HT and wt estimated unable to obtain data rr5 23:23 ongoing seizure. rr5 05/10 00:21 patient is awake and oriented rr5 MDM: 05/09 22:15 Patient medically screened. [facility] 23:51 Data reviewed: vital signs, nurses notes, lab test result(s), EKG, radiologic studies, [facility] CT scan. 05/09 22:16 Order name: Acetaminophen; Complete Time: 23:43 [facility] 05/09 22:16 Order name: Basic Metabolic Panel; Complete Time: 23:43 [facility] 05/09 23:43 Interpretation: Within normal limits: CO2 27. [facility] 05/09 22:16 Order name: CBC with Diff; Complete Time: 23:43 [facility] 05/09 22:16 Order name: ETOH Level; Complete Time: 23:43 [facility] 05/09 22:16 Order name: Hepatic Function; Complete Time: 23:43 [facility] 05/09 22:16 Order name: PT-INR; Complete Time: 23:43 [facility] 05/09 22:16 Order name: Ptt, Activated; Complete Time: 23:43 [facility] 05/09 22:16 Order name: Salicylate; Complete Time: 23:43 [facility] 05/09 22:16 Order name: Urine Drug Screen [facility] 05/09 22:16 Order name: Dilantin; Complete Time: 23:43 [facility] 05/09 22:19 Order name: CT Head Brain wo Cont [facility] 05/10 00:30 Order name: Urine Dipstick--Ancillary (enter results) em1 05/10 00:40 Order name: Urine Dipstick-Ancillary EDLA 05/09 22:16 Order name: EKG; Complete Time: 22:17 [facility] 05/09 22:16 Order name: EKG - Nurse/Tech; Complete Time: 23:00 [facility] 05/09 22:16 Order name: IV Saline Lock; Complete Time: 23:00 [facility] 05/09 22:16 Order name: Labs collected and sent; Complete Time: 23:00 [facility] 05/09 22:16 Order name: Urine Dipstick-Ancillary (obtain specimen); Complete Time: 23:01 [facility] 05/09 22:16 Order name: Seizure Precautions; Complete Time: 23:00 [facility] Administered Medications: 23:00 Drug: NS 0.9% 1000 ml Route: IV; Rate: 1 bolus; Site: right antecubital; rr5 05/10 00:30 Follow up: Response: No adverse reaction; IV Status: Completed infusion; IV Intake: rr5 1000ml 05/09 23:00 Drug: Fosphenytoin 500 mg Route: IVPB; Site: right antecubital; rr5 05/10 00:37 Follow up: Response: No adverse reaction; IV Status: Completed infusion; IV Intake: rr5 100ml Disposition: 05/09/18 23:52 Hospitalization ordered by Carlos Bear for Observation. Preliminary diagnosis is Epileptic seizures related to external causes. - Bed requested for Telemetry/MedSurg (observation). - Status is Observation. rr5 - Condition is Fair. - Problem is new. - Symptoms have improved. UTI on Admission? No Signatures: Dispatcher [employer] EDMS Lawrence Lamb MD MD cha Garcia, Cindy, RN RN Wili Arora RN RN rr5 Corrections: (The following items were deleted from the chart) 00:21 05/09 22:53 Allergies: Unable to obtain; rr5 rr5 05/10 00:21 05/09 22:53 Home Meds: Unable to obtain; rr5 rr5 05/10 00:21 05/09 22:53 PMHx: Unable to obtain; rr5 rr5 05/10 01:46 05/09 23:52 Hospitalization Ordered by Carlos Bear MD for Observation. Preliminary cg diagnosis is Epileptic seizures related to external causes. Bed requested for Telemetry/MedSurg (observation). Status is Observation. Condition is Fair. Problem is new. Symptoms have improved. UTI on Admission? No. justin 05/10 02:19 01:46 05/09/2018 23:52 Hospitalization Ordered by Carlos Bear MD for Observation. rr5 Preliminary diagnosis is Epileptic seizures related to external causes. Bed requested for Telemetry/MedSurg (observation). Status is Observation. Condition is Fair. Problem is new. Symptoms have improved. UTI on Admission? No. cg
--- NOTE | 2018-05-09 23:54 | ER ---
Nurse's Notes [facility] Name: Kirk Cota Age: 22 yrs Sex: Male : 1995 Arrival Date: 05/09/2018 Time: 22:13 Bed 19 [facility] MD: Diagnosis: Epileptic seizures related to external causes Presentation: 05/09 22:35 Presenting complaint: EMS states: patient had 4x seizure tonic clonic seizure, one rr5 episode witness by the EMS last about 10 seconds each. versed 7.5mg given nasal. known case of seizure attack. 22:35 Transition of care: [address] Onset of symptoms was rr5 May 09, 2018. Risk Assessment: Do you want to hurt yourself or someone else? Unable to obtain. Initial Sepsis Screen: Does the patient meet any 2 criteria? No. Patient's initial sepsis screen is negative. Does the patient have a suspected source of infection? No. Patient's initial sepsis screen is negative. Care prior to arrival: on non rebreather mask at 10 liters Medication(s) given: versed 7.5 mg thru nasal. 22:35 Method Of Arrival: EMS: [facility] rr5 22:35 Acuity: MIRTA 3 rr5 22:59 Note artie sabillon manager er at [facility] [phone]. rr5 05/10 02:00 Note [phone] hailey toledo. rr5 Triage Assessment: 05/09 22:35 General: Appears post ictal drowsy. see nurse notes for the assessment. rr5 Historical: - Allergies: 05/10 00:21 No Known Allergies; rr5 - Home Meds: 00:21 Dilantin Oral [Active]; rr5 - PMHx: 00:21 Bipolar disorder; Seizures; rr5 - PSHx: 05/09 22:53 Unable to obtain; rr5 05/10 00:21 toe surgery; rr5 - Immunization history:: Adult Immunizations unknown, Adult Immunizations up to date, Flu vaccine is up to date. - Social history:: Smoking status: unknown Smoking status: Patient uses tobacco products, smokes three packs cigarettes per day. Patient/guardian denies using alcohol, street drugs. - Ebola Screening: : Unable to complete screening because patient is unresponsive. - Family history:: not pertinent. Screenin/19 22:35 Abuse screen: unable to obtain. Nutritional screening: unable to obtain. rr5 22:35 Tuberculosis screening: unable to obtain. Fall Risk Secondary diagnosis (15 points) rr5 seizures, IV access (20 points). Mental Status- Overestimates/Forgets Limitations (15 pts.). Total Milner Fall Scale indicates High Risk Score (45 or more points). Fall prevention measures have been instituted. Side Rails Up X 2 Placed Close to Nursing Station Frequent Obs/Assessments Occuring. Assessment: 22:35 General: Appears breathing spontaneously negative for seizure episode. Behavior is rr5 drowsy. Pain: Unable to use pain scale. Patient appears quiet, drowsy. Neuro: Level of Consciousness is post ictal, Oriented to none Pupils are PERRLA. Cardiovascular: Capillary refill < 3 seconds Patient's skin is warm and dry. Respiratory: Airway is patent Respiratory effort is even, unlabored, Respiratory pattern is regular, symmetrical. GI: No signs and/or symptoms were reported involving the gastrointestinal system. : No signs and/or symptoms were reported regarding the genitourinary system. EENT: No signs and/or symptoms were reported regarding the EENT system. Derm: No signs and/or symptoms reported regarding the dermatologic system. Musculoskeletal: No signs and/or symptoms reported regarding the musculoskeletal system. 23:23 Reassessment: had a generalized tonic clonic seizure upward rolling of eyeball lasted rr5 for 10 seconds. ED provider informed, oxygen shifted to non rebreather mask, head elevation vital signs taken and recorded. 23:50 Reassessment: awake on bed able to talk and knows where he is. alert and oriented. rr5 05/10 01:00 Reassessment: Patient appears in no apparent distress at this time. Patient and/or rr5 family updated on plan of care and expected duration. Pain level reassessed. no complaints made. food served with good appettite. Patient states feeling better. Patient states symptoms have improved. Vital Signs: 05/09 22:35 BP 134 / 76; Pulse 82; Resp 88; Temp 99.1; Pulse Ox 99% on 10% Non-rebreather mask; rr5 Weight 90.72 kg; Height 5 ft. 11 in. (180.34 cm); 22:52 BP 127 / 79; Pulse 85; Resp 17; Pulse Ox 99% on 2 lpm NC; rr5 23:23 Pulse 133; Pulse Ox 99% on 10% Non-rebreather mask; rr5 23:35 BP 126 / 70; Pulse 80; Resp 16; Pulse Ox 99% on 10% Non-rebreather mask; rr5 1220 00:00 BP 131 / 66; Pulse 80; Resp 16; Pulse Ox 99% on R/A; rr5 00:21 Weight 92.99 kg; Height 6 ft. 1 in. (185.42 cm) (R); rr5 01:26 BP 131 / 70; Pulse 82; Resp 18; Pulse Ox 98% on R/A; rr5 02:03 BP 99 / 51; Pulse 80; Resp 16; Temp 97.5(O); Pulse Ox 96% ; rr5 02:15 BP 107 / 57; Pulse 79; Resp 16; Pulse Ox 99% ; rr5 00:21 Body Mass Index 27.05 (92.99 kg, 185.42 cm) rr5 05/09 22:35 HT and wt estimated unable to obtain data rr5 23:23 ongoing seizure. rr5 05/10 00:21 patient is awake and oriented rr5 ED Course: 05/09 22:13 Patient arrived in ED. al2 22:15 Lawrence Lamb MD is Attending Physician. justin 22:31 [place], JAMARCUS is Primary Nurse. jb4 22:35 Patient has correct armband on for positive identification. Placed in gown. Bed in low rr5 position. Side rails up X2. ekg monitor on. Pulse ox on. NIBP on. 22:40 Arm band placed on. rr5 22:40 Inserted saline lock: 18 gauge in right antecubital area, using aseptic technique. rr5 Blood collected. 22:46 Triage completed. rr5 22:[address] vm2 22:59 CT completed. Patient moved back from CT. vm2 23:03 CT Head Brain wo Cont In Process Unspecified. EDMS 23:52 Carlos Bear MD is Hospitalizing Provider. [facility] 05/10 02:01 No provider procedures requiring assistance completed. Patient admitted, IV remains in rr5 place. Administered Medications: 05/09 23:00 Drug: NS 0.9% 1000 ml Route: IV; Rate: 1 bolus; Site: right antecubital; rr5 05/10 00:30 Follow up: Response: No adverse reaction; IV Status: Completed infusion; IV Intake: rr5 1000ml 05/09 23:00 Drug: Fosphenytoin 500 mg Route: IVPB; Site: right antecubital; rr5 05/10 00:37 Follow up: Response: No adverse reaction; IV Status: Completed infusion; IV Intake: rr5 100ml Intake: 00:30 IV: 1000ml; Total: 1000ml. rr5 00:37 IV: 100ml; Total: 1100ml. rr5 01:02 PO: 240ml (Soft Drink); Total: 1340ml. rr5 Output: 00:25 Urine: 950ml (Voided); Total: 950ml. rr5 Outcome: 05/09 23:52 Decision to Hospitalize by Provider. justin 05/10 02:13 Admitted to Tele accompanied by tech, via stretcher, with chart, Report called to georgette bermudez rn Condition: stable Instructed on the need for admit. 02:19 Patient left the ED. rr5 Signatures: Dispatcher [employer] EDLawrence Luciano MD MD cha Bryson, James, RN RN Latesha Diana Angelica al2 Roque, Raymond, RN RN rr5 Corrections: (The following items were deleted from the chart) 00:21 05/09 22:53 Allergies: Unable to obtain; rr5 rr5 05/10 00:21 05/09 22:53 Home Meds: Unable to obtain; rr5 rr5 05/10 00:21 05/09 22:53 PMHx: Unable to obtain; rr5 rr5
[2018-05-10 00:39] LABS: Urine Specific Gravity 1.015 (1.005-1.030)
[2018-05-10 00:40] LABS: Urine Blood NEGATIVE (NEG); Urine Glucose NEGATIVE (NEG); Urine Protein NEGATIVE (NEG); Urine pH 6.5 (5.0-7.0)
[2018-05-10 00:51] LABS: Barbiturates NEGATIVE (NEGATIVE); Benzodiazepines POSITIVE (NEGATIVE); Cocaine NEGATIVE (NEGATIVE); METHAMPHETAM NEGATIVE (NEGATIVE); Methadone NEGATIVE (NEGATIVE); Opiates NEGATIVE (NEGATIVE); Phencyclidine NEGATIVE (NEGATIVE); THC Cannibis NEGATIVE (NEGATIVE)
[2018-05-10] MEDS ORDERED: ACETAMINOPHEN 500 MG TAB PO PRN (00:57)
[2018-05-10] MEDS ORDERED: ONDANSETRON 4 MG/2 ML VIAL IV PRN (00:57)
[2018-05-10] MEDS ORDERED: MORPHINE 2 MG/ML SYR IV PRN (00:57)
[2018-05-10] MEDS: NA CHLORIDE 0.9% 1,000 ML IV SCH ×3 (03:12→21:00)
--- NOTE | 2018-05-10 05:57 | EKG ---
Test Date: 2018-05-09 Test Time: 22:38:11 Inspector Aide: AG3 MEASUREMENT RESULTS: Intervals: Rate: 91 VA: 150 QRSD: 86 QT: 320 QTc: 393 [place]: P: 68 VA: 150 QRS: -81 T: 49 INTERPRETIVE STATEMENTS: Normal sinus rhythm Left anterior fascicular block Abnormal ECG Compared to ECG 02/19/2018 23:31:47 Left anterior fascicular block now present Sinus arrhythmia no longer present Left-axis deviation no longer present ST (T wave) deviation no longer present Electronically Signed On 05-10-18 05:57:19 NETWORK SYSTEMS ADMINISTRATOR by Deshawn Thornton
--- NOTE | 2018-05-10 08:47 | RAD REPORT ---
EXAM DESCRIPTION: CT - Head Brain Wo Cont - 05/10/2018 6:31 am CLINICAL HISTORY: SEIZURE Headache, seizure COMPARISON: No comparisons TECHNIQUE: All CT scans are performed using dose optimization technique as appropriate and may inclu de automated exposure control or mA/KV adjustment according to patient size. FINDINGS: No intracranial hemorrhage, hydrocephalus or extra-axial fluid collection.No areas of brai n edema or evidence of midline shift. The paranasal sinuses and mastoids are clear. The calvarium is intact. IMPRESSION: No acute intracranial abnormality.
--- NOTE | 2018-05-10 08:56 | P.HP ---
Certification for Inpatient Patient admitted to: Observation With expected LOS: <2 Midnights Patient will require the following post-hospital care: None Practitioner: I am a practitioner with admitting privileges, knowledge of patient current condition, hospital course, and medical plan of care. Services: Services provided to patient in accordance with Admission requirements found in Title 42 Section 412.3 of the Code of Federal Regulations Patient History Date of Service: 05/09/18 Reason for admission: Seizures History of Present Illness: Patient is a 22-year-old gentleman who presents to the hospital with seizures. Patient states he has been having seizures since he was 8 years old. Patient has been taking Dilantin. He states he has been taking his medication as prescribed. Patient had a breakthrough seizure. He had 2 seizures and had a postictal state. He and initially talk to me but after few hr he was communicating more. He stated that he was tired and was really aware of what had happened. He will be admitted to the hospital for further workup. Allergies No Known Allergies Allergy (Unverified 07/17/17 21:18) Home Medications: Folic Acid 0.8 mcg PO DAILY 05/10/18 Phenytoin Sodium Extended [Dilantin] 300 mg PO DAILY 05/10/18 - Past Medical/Surgical History Has patient received pneumonia vaccine in the past: No Diabetic: No -: seizures -: left foot great toe sx - Family History Father Medical History: Cancer, Other (see notes) Notes: brain tumour Mother History Unknown: Yes - Social History Smoking Status: Current every day smoker Alcohol use: No CD- Drugs: Yes Caffeine use: Yes Place of Residence: Home Review of Systems 10-point ROS is otherwise unremarkable Physical Examination - Vital Signs Temperature: 98.0 F Blood Pressure: 118/61 Pulse: 80 Respirations: 18 Pulse Ox (%): 96 - Physical Exam General: Alert, In no apparent distress, Oriented x3 HEENT: Atraumatic, PERRLA, Mucous membr. moist/pink, EOMI, Sclerae nonicteric Neck: Supple, 2+ carotid pulse no bruit, No LAD, Without JVD or thyroid abnormality Respiratory: Clear to auscultation bilaterally, Normal air movement Cardiovascular: Regular rate/rhythm, Normal S1 S2, No murmurs Gastrointestinal: Normal bowel sounds, Soft and benign, Non-distended, No tenderness Musculoskeletal: No clubbing, No swelling, No tenderness Integumentary: No rashes Neurological: Normal gait, Normal speech, Normal strength at 5/5 x4 extr, Normal tone, Sensation intact, Cranial nerves 3-12 intact, Normal affect Lymphatics: No axilla or inguinal lymphadenopathy - Studies Laboratory Data (last 24 hrs) 05/09/18 22:25: PT 11.9, INR 1.01, APTT 34.1 05/09/18 22:25: WBC 9.0, Hgb 14.7, Hct 41.5, Plt Count 219 05/09/18 22:25: Sodium 140, Potassium 3.5, BUN 13, Creatinine 1.10, Glucose 125 H, Total Bilirubin 0.2, AST 14 L, ALT 26, Alkaline Phosphatase 75 Assessment & Plan - Problems (Diagnosis) (1) Seizure Current Visit: Yes Status: Acute - Plan Plan: 1. IV hydration 2. Anti epileptic 3. Seizure precautions 4. EEG 5. Neurology consultation 6. GI and DVT prophylaxis Discharge Plan: Home Plan to discharge in: 24 Hours - Advance Directives Does patient have a Living Will: No Does patient have a Durable POA for Healthcare: Yes - Code Status/Comfort Care Code Status Assessed: Yes Code Status: Full Code Critical Care: No Time Spent Managing PTS Care (In Minutes): 50
[2018-05-10] MEDS ORDERED: INFLUENZA VACCINE (for 3y+) 0.5 ML DOSE IMVAC ONE (09:00)
--- NOTE | 2018-05-10 09:07 | RAD REPORT ---
EXAM DESCRIPTION: MRI - Brain Wo Cont - 05/10/2018 8:25 am CLINICAL HISTORY: sz Headache, seizure. COMPARISON: Head Brain Wo Cont dated 05/09/2018 TECHNIQUE: Multi-sequence, multiplanar MR imaging of the brain was performed without contrast. FINDINGS: No intracranial hemorrhage, hydrocephalus or extra-axial fluid collections. No edema or sh ift of midline structures. No findings to suspect brain mass. DWI is negative for acute CVA. Midline structures are normally formed. Mastoid air cells and paranasal sinuses are clear. IMPRESSION: No acute or concerning intracranial abnormalities.
[2018-05-10] MEDS: PHENYTOIN ER 100 MG CAP PO SCH (10:28)
[2018-05-10] MEDS: FOLIC ACID 1 MG TABLET PO SCH (10:29)
[2018-05-10] MEDS ORDERED: levETIRAcetam 500 MG TAB PO SCH (11:00)
--- NOTE | 2018-05-10 16:20 | P.PN ---
Subjective Date of Service: 05/10/18 Chief Complaint: Seizures Patient seen and examined at bedside with RN. Chart reviewed. Case discussed with neurology. Patient is seen by outside. No seizures noted since admission. Review of Systems 10-point ROS is otherwise unremarkable Physical Examination - Vital Signs Temperature: 98.2 F Blood Pressure: 110/58 Pulse: 73 Respirations: 18 Pulse Ox (%): 5 - Physical Exam General: Alert, In no apparent distress HEENT: Atraumatic, PERRLA, EOMI Neck: Supple, JVD not distended Respiratory: Clear to auscultation bilaterally, Normal air movement Cardiovascular: Regular rate/rhythm, Normal S1 S2 Gastrointestinal: Normal bowel sounds, No tenderness Musculoskeletal: No tenderness Integumentary: No rashes Neurological: Normal speech, Normal tone, Normal affect Lymphatics: No axilla or inguinal lymphadenopathy - Studies Laboratory Data (last 24 hrs) 05/09/18 22:25: PT 11.9, INR 1.01, APTT 34.1 05/09/18 22:25: WBC 9.0, Hgb 14.7, Hct 41.5, Plt Count 219 05/09/18 22:25: Sodium 140, Potassium 3.5, BUN 13, Creatinine 1.10, Glucose 125 H, Total Bilirubin 0.2, AST 14 L, ALT 26, Alkaline Phosphatase 75 Medications List Reviewed: Yes Assessment And Plan - Current Problems (Diagnosis) (1) Seizure Onset Date: 05/10/18 Current Visit: Yes Status: Acute Plan: Seizure noted due to Noncompliance with medication due to Him running out. -Will resume Dilantin at this time -will get MRI of the head and EEG done -neurology's consulted at this time as well - Plan Pending clinical improvement at this time Discharge Plan: Home Plan to discharge in: 48 Hours - Code Status/Comfort Care Code Status Assessed: Yes Critical Care: No
--- NOTE | 2018-05-11 00:27 | CON ---
Date of Consultation: 05/10/2018 Time: 19:15. Reason: Seizures. History: This is a 22-year-old gentleman with a history of seizures for the last 4 years he says, sahara diaz says since he was 8. He is of below average intellect, does not work, is on his father's disabi lity. He is illiterate. He normally is on Dilantin 300 mg daily and has been compliant with the med ication, did not have seizures. Ran out of medication for about 4 days, was in the emergency departm ent on the . Dilantin level 3.5 on the . Given a gram of fosphenytoin intravenously, Dilant in was filled, prescription said have 300 oral 1 daily, so he got confused about how much phenytoin h e should be taking as phenytoin sodium comes in 100 mg capsules. He had a flurry of seizures last ni ght, came back to the emergency department. Dilantin level was 10 in the emergency department. CT s can of the brain unremarkable. He had a prolonged postictal state so he was placed in the hospital o n observation. Since being in the hospital, he has not had any recurrent seizures. CT scan of the b rain in the ER was unremarkable. Brain MRI is normal. EEG, which is primarily sleep was normal. CB C normal. Liver function tests normal. Electrolytes normal. Positive benzodiazepines on drug scree n. Consultation was requested. Past Medical History: As alluded to. Medications: Normally Dilantin 300 at night, folic acid. Social History: Smokes. Does not drink. On disability. Does not work. Family History: Seizures in maternal aunt. Review of Systems: General: Good health. Eyes: Negative. Ears, Nose, Throat: Negative. Cardiovascular: Negative. Pulmonary: Negative. GI: Negative. : Negative. Musculoskeletal: Some muscle pain after the seizures yesterday. Neurologic: As noted. Psychiatric: Questionable history of bipolar disorder. Endocrine: Negative. Hematologic: Negative. Physical Examination: Vital Signs: 98.2, 73, 18, 110/58. General: He is awake, alert, oriented. Speech is fluent. Does appear to be of below average intell igence. Multiple tattoos. HEENT: Pupils reactive. Ocular motion full. Mederos full. Facial stren gth and sensation normal. Tongue protrudes evenly. No tongue laceration. Soft palate elevates symm etrically bilaterally. Neck: Supple. Extremities: Strength full. Sensation intact. Reflexes 1/4 toes are downgoing. Cerebellar exam de monstrates no ataxia. Gait is normal. Impression: Cryptogenic complex partial seizures. Evaluation is unremarkable. Plan: I think he is stable to be safely discharged to home this evening. Continue Dilantin 300 mg. He can follow up in the office. We have actually never seen him in the office but he had an appoint ment for next month so he can keep that appointment and we will check another level then. Seizure pr ecautions on discharge reviewed with the patient. No driving, ladders, heights, tub baths, operating heavy machinery, swimming in the ocean. Thank you for the consult. MADELIN Voice ID: [id number] Report ID: [id number]
[2018-05-11 06:06] LABS: Absolute Lymphocytes (CBC) 2.1 K/uL (0.7-4.9); Absolute Monocytes 0.8 K/uL (0.1-1.3); Absolute Neutrophil 2.7 K/uL (1.8-8.0); Eosinophils % 4.5 % (0-4.4); Hematocrit 42.8 % (39.6-49.0); Lymphocytes % 35.9 % (15.3-44.8); MPV 7.9 fL (7.6-11.3); Monocytes % 13.2 % (3.3-12.3); RBC Red Blood Cell Count 4.78 M/uL (4.33-5.43)
[2018-05-11 06:19] LABS: ALT/SGPT 35 U/L (12-78); AST/SGOT 19 U/L (15-37); Albumin 3.1 g/dL (3.4-5.0); Alkaline Phosphatase 73 U/L (45-117); BUN Blood Urea Nitrogen 11 mg/dL (7-18); Bicarbonate 27 mmol/L (21-32); Bilirubin Total 0.3 mg/dL (0.2-1.0); Glucose Level 94 mg/dL (74-106); Protein, Total 6.6 g/dL (6.4-8.2); Sodium Level 139 mmol/L (136-145)
[2018-05-11] MEDS: NA CHLORIDE 0.9% 1,000 ML IV SCH (08:17)
[2018-05-11] MEDS: FOLIC ACID 1 MG TABLET PO SCH (08:18)
[2018-05-11] MEDS: PHENYTOIN ER 100 MG CAP PO SCH (08:18)
--- NOTE | 2018-05-11 15:38 | EEG ---
CHART: [id number] TEST ID#: [id number] DATE OF STUDY: 05/10/2018 THE EEG WAS RECORDED PORTABLE IN THE PATIENTS ROOM ON A 17 CHANNEL MACHINE. ELECTRODES WERE APPLIED IN THE USUAL MANNER USING THE INTERNATIONAL 10-20 SYSTEM. THE WAKING BACKGROUND RHYTHM IN THIS RECORD CONSISTS OF FAIRLY WELL DEVELOPED AND FAIRLY WELL ORGANIZED WAVES OF UP TO 10 HZ., MAXIMAL IN THE POSTERIOR HEAD REGIONS WHICH ATTENUATE NORMALLY WITH EYE OPENING. IN DROWSINESS THE BACKGROUND DROPS TO 9 HZ. THERE ARE NO FOCAL OR LATERALIZING FEATURES. NO EPILEPTIFORM ACTIVITY APPEARS. SLEEP OCCURRED NATURALLY. NORMAL SLEEP PATTERNS ARE PRESENT. HYPERVENTILATION WAS NOT PREFORMED. PHOTIC STIMULATION PRODUCED FAIR DRIVING BILATERALLY. IMPRESSION: NORMAL EEG FOR THE AGE OF THE PATIENT IN [place], DROWSINESS AND SLEEP.
--- NOTE | 2018-05-11 17:07 | P.DS ---
Admission Date: 05/09/18 Discharge Date: 05/11/18 Disposition: ROUTINE DISCHARGE Discharge Condition: GOOD Reason for Admission: Seizures Consultations: Neurology - Problems (1) Seizure Onset Date: 05/10/18 Status: Acute Brief History of Present Illness: Patient is a 22-year-old gentleman who presents to the hospital with seizures. Patient states he has been having seizures since he was 8 years old. Patient has been taking Dilantin. He states he has been taking his medication as prescribed. Patient had a breakthrough seizure. He had 2 seizures and had a postictal state. He and initially talk to me but after few hr he was communicating more. He stated that he was tired and was really aware of what had happened. He will be admitted to the hospital for further workup. Hospital Course: overall during the hospital stay patient remained stable Patient was admitted to the hospital initially for epileptic seizure. Patient does have a history of seizures in the past however ran out of his medication and thus was admitted for noncompliance. After admission patient was started on Dilantin 300 mg here which was is home dosage. Patient remained seizure free while here in the hospital. Neurology was also consulted who recommended the patient can be discharged home after getting an MRI and EEG on a home dose of Dilantin and will have followup appointment with them outpatient about 1-2 weeks. Patient then was discharged home under stable condition was asked to follow up with Neurology in about 1-2 days post discharge. Vital Signs/Physical Exam: Temp Pulse Resp BP Pulse Ox 98.2 F 77 18 116/55 L 97 05/11/18 12:00 05/11/18 12:00 05/11/18 12:00 05/11/18 12:00 05/11/18 12:00 General: Alert, In no apparent distress HEENT: Atraumatic, PERRLA, EOMI Neck: Supple, JVD not distended Respiratory: Clear to auscultation bilaterally, Normal air movement Cardiovascular: Regular rate/rhythm, Normal S1 S2 Gastrointestinal: Normal bowel sounds, No tenderness Musculoskeletal: No tenderness Integumentary: No rashes Neurological: Normal speech, Normal tone, Normal affect Lymphatics: No axilla or inguinal lymphadenopathy Laboratory Data at Discharge: WBC 5.9 K/uL (4.3-10.9) D 05/11/18 05:43 Hgb 15.1 g/dL (13.6-17.9) 12/21/18 05:43 Hct 42.8 % (39.6-49.0) 05/11/18 05:43 Plt Count 228 K/uL (152-406) 05/11/18 05:43 PT 11.9 SECONDS (9.5-12.5) 05/09/18 22:25 INR 1.01 05/09/18 22:25 APTT 34.1 SECONDS (24.3-36.9) 05/09/18 22:25 Sodium 139 mmol/L (136-145) 05/11/18 05:43 Potassium 4.0 mmol/L (3.5-5.1) 05/11/18 05:43 BUN 11 mg/dL (7-18) 05/11/18 05:43 Creatinine 1.00 mg/dL (0.55-1.3) 05/11/18 05:43 Glucose 94 mg/dL (74-106) 05/11/18 05:43 Total Bilirubin 0.3 mg/dL (0.2-1.0) 05/11/18 05:43 AST 19 U/L (15-37) 05/11/18 05:43 ALT 35 U/L (12-78) 05/11/18 05:43 Alkaline Phosphatase 73 U/L (45-117) 05/11/18 05:43 Home Medications: Folic Acid 0.8 mcg PO DAILY 05/10/18 Phenytoin Sodium Extended [Dilantin] 300 mg PO DAILY 05/10/18 Patient Discharge Instructions: Please f.u with PCP. CONTINUE tAKING ALL MEDICATION PRECRIBED INCLUDING. PHENOTYOIN Diet: Regular Activity: Ad nathan Followup: Alonso Lemus MD [ACTIVE - CAN ADMIT] - (keep scheduled appointment)
== END 2018-05-11 14:14 | disposition home or self-care (01) ==
LOC: ER 22:11 → ERHOLD 23:52 → 4TH 05-10 02:11
PROVIDERS: ADMIT Hospitalist; ATTEND Hospitalist
DX: G40.209 Localization-related (focal) (partial) symptomatic epilepsy and epileptic syndromes with complex partial seizures, not intractable, without status epilepticus (principal); Z91.14 Patient's other noncompliance with medication regimen
CPT/HCPCS: 36415 ×2; 70450; 70551; 80048; 80053; 80076; 80185; 80307 ×8; 80320; 80329 ×2; 81003; 85025 ×2; 85610; 85730; 93005; 95819; 96365; 96366; 99285; J7030 ×4; Q2009; G0378

== ENCOUNTER 2019-04-18 19:24 | Emergency (ER) | payer OTHER ==
--- OUTSIDE RECORDS SUMMARY | 2019-04-18 19:25 | XMS REPORT ---
:1995 [facility] Address [address] [place] [address] Care Team Providers Name Role Phone Unavailable Unavailable Unavailable Problems This patient has no known problems. Allergies, Adverse Reactions, Alerts This patient has no known allergies or adverse reactions. Medications This patient has no known medications.
[2019-04-18] MEDS ORDERED: LEVETIRACETAM 500 MG/5 ML VIAL IV ONE ×2 (19:57→19:59)
[2019-04-18] MEDS ORDERED: NA CHLORIDE 0.9% 100 ML IV ONE (19:58)
[2019-04-18] MEDS ORDERED: NA CHLORIDE 0.9% 1,000 ML ONE (19:58)
[2019-04-18 20:15] LABS: Absolute Lymphocytes (CBC) 1.6 K/uL (0.7-4.9); Basophils % 0.6 % (0-1.3); Hematocrit 42.3 % (39.6-49.0); Lymphocytes % 17.9 % (15.3-44.8); MPV 8.2 fL (7.6-11.3)
[2019-04-18 20:29] LABS: Potassium 3.8 mmol/L (3.5-5.1)
[2019-04-18 21:20] LABS: Urine Blood NEGATIVE (NEG); Urine Glucose NEGATIVE (NEG); Urine Protein NEGATIVE (NEG)
[2019-04-18 21:32] LABS: Barbiturates NEGATIVE (NEGATIVE); Benzodiazepines NEGATIVE (NEGATIVE); Cocaine NEGATIVE (NEGATIVE); METHAMPHETAM NEGATIVE (NEGATIVE); Methadone NEGATIVE (NEGATIVE); Opiates NEGATIVE (NEGATIVE); Phencyclidine NEGATIVE (NEGATIVE); THC Cannibis POSITIVE (NEGATIVE)
--- NOTE | 2019-04-18 21:43 | ER ---
Nurse's Notes [facility] Name: Kirk Cota Age: 23 yrs Sex: Male : 1995 Arrival Date: 04/18/2019 Time: 19:26 Bed 19 Private MD: Diagnosis: Seizure disorder. Non - compliace. Substance abuse Presentation: 04/18 19:38 Presenting complaint: Patient states: Seizures x 4 today, last 1 was an hour ago. Hx of ca1 Epilepsy, takes Dilantin 100 mg 2x a day but has NOT taken in the last 3 months. Denies falling on the ground during a seizure episode today. C/O pain on back, neck and legs that is described as stiff. Transition of care: patient was not received from another setting of care. Onset of symptoms was April 18, 2019 at 18:30. Risk Assessment: Do you want to hurt yourself or someone else? Patient reports no desire to harm self or others. Initial Sepsis Screen: Does the patient meet any 2 criteria? No. Patient's initial sepsis screen is negative. Does the patient have a suspected source of infection? No. Patient's initial sepsis screen is negative. Care prior to arrival: None. 19:38 Method Of Arrival: Wheelchair ca1 19:38 Acuity: MIRTA 3 ca1 Triage Assessment: 19:42 General: Appears in no apparent distress. comfortable, Behavior is calm, cooperative, ca1 appropriate for age. Pain: Complains of pain in back, right leg, left leg and neck Pain currently is 7 out of 10 on a pain scale. Quality of pain is described as stiff. Neuro: Level of Consciousness is awake, alert, obeys commands, Oriented to person, place, time, situation. Historical: - Allergies: 19:42 No Known Allergies; ca1 - Home Meds: 19:42 Dilantin Oral 100 mg twice a day [Active]; ca1 - PMHx: 19:42 Bipolar disorder; Seizures; ca1 - Immunization history:: Adult Immunizations not up to date. - Social history:: Smoking status: Patient uses tobacco products, smokes one-half pack cigarettes per day. - Ebola Screening: : Patient negative for fever greater than or equal to 101.5 degrees Fahrenheit, and additional compatible Ebola Virus Disease symptoms Patient denies exposure to infectious person Patient denies travel to an Ebola-affected area in the 21 days before illness onset No symptoms or risks identified at this time. Screenin:52 Abuse screen: Denies threats or abuse. Denies injuries from another. Nutritional cc3 screening: No deficits noted. Tuberculosis screening: No symptoms or risk factors identified. Fall Risk Ambulatory Aid- None/Bed Rest/Nurse Assist (0 pts). Gait- Normal/Bed Rest/Wheelchair (0 pts) Mental Status- Oriented to own ability (0 pts). Assessment: 19:52 General: Appears in no apparent distress. comfortable, Behavior is calm, cooperative, cc3 appropriate for age. Pain: Complains of pain in back. Neuro: Level of Consciousness is awake, alert, obeys commands, Oriented to person, place, time, situation, Appropriate for age. Cardiovascular: Denies chest pain, Heart tones S1 S2 present Capillary refill < 3 seconds in bilateral fingers Patient's skin is warm and dry. Respiratory: Airway is patent Respiratory effort is even, unlabored, Respiratory pattern is regular, symmetrical, Breath sounds are clear bilaterally. GI: Abdomen is flat, Bowel sounds present X 4 quads. Abd is soft and non tender X 4 quads. : No signs and/or symptoms were reported regarding the genitourinary system. EENT: No signs and/or symptoms were reported regarding the EENT system. Derm: Skin is intact, is healthy with good turgor, Skin is pink, warm \T\ dry. normal. Musculoskeletal: Circulation, motion, and sensation intact. Range of motion: intact in all extremities. 20:18 Reassessment: Patient appears in no apparent distress at this time. Patient and/or cc3 family updated on plan of care and expected duration. Pain level reassessed. Patient is alert, oriented x 3, equal unlabored respirations, skin warm/dry/pink. 21:45 Reassessment: Patient appears in no apparent distress at this time. Patient and/or cc3 family updated on plan of care and expected duration. Pain level reassessed. Patient is alert, oriented x 3, equal unlabored respirations, skin warm/dry/pink. The patient walked around in steady gait, Dr. Hernandez informed. Dr. Hernandez ordered patient for discharge home once patient ride is available. Patient said he tried to call for his ride home but nobody answered and he said he'll just stay with his grandfather who is admitted upstairs in room 228, Dr. Hernandez and charge nurse Sneha nolan. Patient denies pain at this time. Patient states feeling better. Patient states symptoms have improved. 22:00 Reassessment: Patient appears in no apparent distress at this time. Patient and/or cc3 family updated on plan of care and expected duration. Pain level reassessed. Patient is alert, oriented x 3, equal unlabored respirations, skin warm/dry/pink. IV cannula removed and patient left ER vitally stable and ambulatory accompanied by anaesthetic technicianjaswinder Troy to his admitted grandfather in the med-surg unit. No valuables left in the patient's room. Patient denies pain at this time. Patient states feeling better. Patient states symptoms have improved. Vital Signs: 19:42 BP 137 / 91; Pulse 109; Resp 17 S; Temp 99.1(O); Pulse Ox 99% on R/A; Weight 77.11 kg ca1 (R); Height 6 ft. 1 in. (185.42 cm) (R); Pain 7/10; 20:45 BP 122 / 74; Pulse 86; Resp 15 S; Pulse Ox 97% on R/A; cc3 21:45 BP 125 / 77; Pulse 85; Resp 16 S; Pulse Ox 98% on R/A; Pain 0/10; cc3 19:42 Body Mass Index 22.43 (77.11 kg, 185.42 cm) ca1 [place] Coma Score: 19:42 Eye Response: spontaneous(4). Verbal Response: oriented(5). Motor Response: obeys ca1 commands(6). Total: 15. ED Course: 19:26 Patient arrived in ED. mr 19:31 Osvaldo Hernandez MD is Attending Physician. pkl 19:41 Triage completed. ca1 19:42 Arm band placed on right wrist. ca1 19:50 Inserted saline lock: 20 gauge in right antecubital area, using aseptic technique. cc3 Blood collected. 19:52 Mona Fernandez is Primary Nurse. cc3 19:52 Patient has correct armband on for positive identification. Placed in gown. Bed in low cc3 position. Call light in reach. Side rails up X2. Seizure precautions initiated. emergency department coordinator on. Pulse ox on. NIBP on. 21:42 Alonso Lemus MD is Referral Physician. pkl 22:00 No provider procedures requiring assistance completed. IV discontinued, intact, cc3 bleeding controlled, No redness/swelling at site. Pressure dressing applied. Administered Medications: 20:00 Drug: NS 0.9% 1000 ml Route: IV; Rate: 125 ml/hr; Site: right antecubital; cc3 22:00 Follow up: Response: No adverse reaction; IV Status: Order to discontinue infusion; IV cc3 Intake: 250ml ; patient discharged home 20:00 Drug: Keppra 1000 mg Route: IV; Rate: calculated rate; Site: right antecubital; cc3 20:15 Follow up: Response: No adverse reaction; IV Status: Completed infusion; IV Intake: cc3 100ml Intake: 20:15 IV: 100ml; Total: 100ml. cc3 22:00 IV: 250ml; Total: 350ml. cc3 Outcome: 21:43 Discharge ordered by . pkl 22:00 Discharged to home ambulatory. cc3 22:00 Condition: stable 22:00 Discharge instructions given to patient, Instructed on discharge instructions, follow up and referral plans. medication usage, Demonstrated understanding of instructions, follow-up care, medications, Prescriptions given X 1. 22:10 Patient left the ED. cc3 Signatures: Osvaldo Hernandez MD MD pk Lupe OrdonezgabrielMona cc3 Lexie Armstrong RN RN ca1
--- NOTE | 2019-04-18 21:44 | EDPHYS ---
Physician Documentation [facility] Name: Kirk Cota Age: 23 yrs Sex: Male : 1995 Arrival Date: 04/18/2019 Time: 19:26 Bed 19 Private MD: ED Physician Osvaldo Hernandez HPI: 04/18 19:52 This 23 yrs old Male presents to ER via Wheelchair with complaints of pkl Probable Seizure. 19:52 The patient presents with a history of multiple seizures, a total of 4, with the most pkl recent occurring 1 hour(s) ago, the episode(s) was witnessed, by a significant other, girlfriend. Character of seizure(s): Loss of consciousness: the patient experienced loss of consciousness, brief. Seizure onset: today. Seizure Hx: Seizure medications: phenytoin. Associated injury: The patient did not suffer any apparent associated injury. Stopped taking Dilantin for last 3 months. Said girlfriend does not want him taking Dilantin. Has for seen Dr. Lemus ( Neurologist ) for more than 5 months. Historical: - Allergies: 19:42 No Known Allergies; ca1 - Home Meds: 19:42 Dilantin Oral 100 mg twice a day [Active]; ca1 - PMHx: 19:42 Bipolar disorder; Seizures; ca1 - Immunization history:: Adult Immunizations not up to date. - Social history:: Smoking status: Patient uses tobacco products, smokes one-half pack cigarettes per day. - Ebola Screening: : Patient negative for fever greater than or equal to 101.5 degrees Fahrenheit, and additional compatible Ebola Virus Disease symptoms Patient denies exposure to infectious person Patient denies travel to an Ebola-affected area in the 21 days before illness onset No symptoms or risks identified at this time. ROS: 19:52 Eyes: Negative for injury, pain, redness, and discharge, ENT: Negative for injury, pkl pain, and discharge, Neck: Negative for injury, pain, and swelling, Cardiovascular: Negative for chest pain, palpitations, and edema, Respiratory: Negative for shortness of breath, cough, wheezing, and pleuritic chest pain, Abdomen/GI: Negative for abdominal pain, nausea, vomiting, diarrhea, and constipation, Back: Negative for injury and pain, : Negative for injury, bleeding, discharge, and swelling, MS/Extremity: Negative for injury and deformity, Skin: Negative for injury, rash, and discoloration. 19:52 Neuro: Positive for seizure activity. Exam: 19:52 Head/Face: Normocephalic, atraumatic. Eyes: Pupils equal round and reactive to light, pkl extra-ocular motions intact. Lids and lashes normal. Conjunctiva and sclera are non-icteric and not injected. Cornea within normal limits. Periorbital areas with no swelling, redness, or edema. ENT: Nares patent. No nasal discharge, no septal abnormalities noted. Tympanic membranes are normal and external auditory canals are clear. Oropharynx with no redness, swelling, or masses, exudates, or evidence of obstruction, uvula midline. Mucous membranes moist. Neck: Trachea midline, no thyromegaly or masses palpated, and no cervical lymphadenopathy. Supple, full range of motion without nuchal rigidity, or vertebral point tenderness. No Meningismus. Chest/axilla: Normal chest wall appearance and motion. Nontender with no deformity. No lesions are appreciated. Cardiovascular: Regular rate and rhythm with a normal S1 and S2. No gallops, murmurs, or rubs. Normal PMI, no JVD. No pulse deficits. Respiratory: Lungs have equal breath sounds bilaterally, clear to auscultation and percussion. No rales, rhonchi or wheezes noted. No increased work of breathing, no retractions or nasal flaring. Abdomen/GI: Soft, non-tender, with normal bowel sounds. No distension or tympany. No guarding or rebound. No evidence of tenderness throughout. Back: No spinal tenderness. No costovertebral tenderness. Full range of motion. Male : Normal genitalia with no discharge or lesions. Skin: Warm, dry with normal turgor. Normal color with no rashes, no lesions, and no evidence of cellulitis. MS/ Extremity: Pulses equal, no cyanosis. Neurovascular intact. Full, normal range of motion. Neuro: Awake and alert, GCS 15, oriented to person, place, time, and situation. Cranial nerves II-XII grossly intact. Motor strength 5/5 in all extremities. Sensory grossly intact. Cerebellar exam normal. Normal gait. Vital Signs: 19:42 BP 137 / 91; Pulse 109; Resp 17 S; Temp 99.1(O); Pulse Ox 99% on R/A; Weight 77.11 kg ca1 (R); Height 6 ft. 1 in. (185.42 cm) (R); Pain 7/10; 20:45 BP 122 / 74; Pulse 86; Resp 15 S; Pulse Ox 97% on R/A; cc3 21:45 BP 125 / 77; Pulse 85; Resp 16 S; Pulse Ox 98% on R/A; Pain 0/10; cc3 19:42 Body Mass Index 22.43 (77.11 kg, 185.42 cm) ca1 [place] Coma Score: 19:42 Eye Response: spontaneous(4). Verbal Response: oriented(5). Motor Response: obeys ca1 commands(6). Total: 15. MDM: 19:31 Patient medically screened. pkl 21:36 Data reviewed: vital signs, nurses notes, lab test result(s). ED course: Patient alert pkl and rational. Ambulatory. Discussed lab. results with patient. Advised to follow up with Dr. Lemus next week. Patient understood instructions. 04/18 19:51 Order name: CBC with Diff pkl 04/18 19:51 Order name: Chem 7 pkl 04/18 19:51 Order name: UDS pkl 04/18 20:30 Order name: Basic Metabolic Panel; Complete Time: 20:32 EDMS 04/18 20:50 Order name: CBC with Automated Diff; Complete Time: 20:52 EDMS 04/18 21:18 Order name: Urine Dipstick--Ancillary (enter results) mt 04/18 21:21 Order name: Urine Dipstick-Ancillary; Complete Time: 21:24 EDMS 04/18 21:32 Order name: Urine Drug Screen; Complete Time: 21:34 EDMS Administered Medications: 20:00 Drug: NS 0.9% 1000 ml Route: IV; Rate: 125 ml/hr; Site: right antecubital; cc3 22:00 Follow up: Response: No adverse reaction; IV Status: Order to discontinue infusion; IV cc3 Intake: 250ml ; patient discharged home 20:00 Drug: Keppra 1000 mg Route: IV; Rate: calculated rate; Site: right antecubital; cc3 20:15 Follow up: Response: No adverse reaction; IV Status: Completed infusion; IV Intake: cc3 100ml Disposition: 04/18/19 21:43 Discharged to Home. Impression: Seizure disorder. Non - compliace. Substance abuse. - Condition is Stable. - Prescriptions for Keppra 500 mg Oral Tablet - take 1 tablet by ORAL route every 12 hours; 20 tablet. - Medication Reconciliation Form, Thank You Letter, Antibiotic Education, Prescription Opioid Use form. - Follow up: Alonso Lemus MD; When: 2 - 3 days; Reason: Re-evaluation by your physician. - Problem is new. - Symptoms have improved. Signatures: Dispatcher [employer] EDMS Osvaldo Hernandez MD MD pkl Mona Fernandez cc3 Lexie Armstrong RN RN ca1 Corrections: (The following items were deleted from the chart) 22:10 21:43 04/18/2019 21:43 Discharged to Home. Impression: Seizure disorder. Non - cc3 compliace. Substance abuse. Condition is Stable. Forms are Medication Reconciliation Form, Thank You Letter, Antibiotic Education, Prescription Opioid Use. Follow up: Alonso Lemus; When: 2 - 3 days; Reason: Re-evaluation by your physician. Problem is new. Symptoms have improved. pkl
[2019-04-19 04:59] VITALS: TEMP 99.1
[2019-04-19 05:01] VITALS: BP 122/74; O2SAT 97
== END 2019-04-18 22:10 | disposition home or self-care (01) ==
LOC: ER 19:24
DX: G40.909 Epilepsy, unspecified, not intractable, without status epilepticus (principal); T42.0X6A Underdosing of hydantoin derivatives, initial encounter; Z91.128 Patient's intentional underdosing of medication regimen for other reason; F19.10 Other psychoactive substance abuse, uncomplicated; F17.210 Nicotine dependence, cigarettes, uncomplicated
CPT/HCPCS: 96361; 85025; 80048; 36415; 80307 ×8; 81003; 96374; 99284; J1953 ×2; J7030

== ENCOUNTER 2020-07-24 22:45 | Inpatient (IN) | payer OTHER ==
--- OUTSIDE RECORDS SUMMARY | 2020-07-24 22:49 | XMS REPORT | Continuity of Care Document ---
:1995 Author Organization [facility] t Address [address] [place] [address] Care Team Providers Name Role Phone Moeller DO Attending Clinician Problems This patient has no known problems. Allergies, Adverse Reactions, Alerts This patient has no known allergies or adverse reactions. Medications This patient has no known medications. Procedures This patient has no known procedures. Encounters Start End Encounter Admission Attending Care Care Encounter Source Date/Time Date/Time Type Type Clinicians Facility Department ID 2020-07-22 2020-07-22 Emergency [facility] [id number] 13:20:00 17:03:00 Thaddeus Garcia [id number] [place] [id number] [place] [id number] Results This patient has no known results.
[2020-07-24 23:15] LABS: Absolute Lymphocytes (CBC) 1.6 K/uL (0.7-4.9); Basophils % 0.7 % (0-1.3); Hematocrit 41.8 % (39.6-49.0); Lymphocytes % 24.8 % (15.3-44.8); MPV 7.9 fL (7.6-11.3); RBC Red Blood Cell Count 4.65 M/uL (4.33-5.43)
[2020-07-24] MEDS ORDERED: ONDANSETRON 4 MG/2 ML VIAL ONE (23:21)
[2020-07-24] MEDS ORDERED: NA CHLORIDE 0.9% 1,000 ML ONE (23:21)
[2020-07-24 23:25] LABS: Protime INR 1.05
[2020-07-24] MEDS ORDERED: NA CHLORIDE 0.9% 100 ML ONE (23:38)
[2020-07-24] MEDS ORDERED: FOSPHENYTOIN PE 500 MG/10 ML VIAL ONE (23:39)
[2020-07-24] MEDS ORDERED: MORPHINE 2 MG/ML SYR ONE (23:45)
[2020-07-24] MEDS ORDERED: FAMOTIDINE 20 MG/2 ML VIAL IV ONE (23:45)
[2020-07-24 23:48] LABS: ALT/SGPT 42 U/L (12-78); AST/SGOT 13 U/L (15-37); Albumin 3.6 g/dL (3.4-5.0); Alkaline Phosphatase 66 U/L (45-117); BUN Blood Urea Nitrogen 11 mg/dL (7-18); Bicarbonate 29 mmol/L (21-32); Bilirubin Direct 0.1 mg/dL (0-0.2); Bilirubin Total 0.3 mg/dL (0.2-1.0); Glucose Level 113 mg/dL (74-106); Potassium 3.6 mmol/L (3.5-5.1); Sodium Level 140 mmol/L (136-145)
[2020-07-25] MEDS ORDERED: PROMETHAZINE INJ 25 MG/ML AMP ONE (00:59)
[2020-07-25 01:15] LABS: Urine Blood NEGATIVE (NEG); Urine Glucose TRACE (NEG); Urine Protein NEGATIVE (NEG); Urine pH 7.5 (5.0-7.0)
[2020-07-25] MEDS ORDERED: NA CHLORIDE 0.9% 1,000 ML ONE ×2 (01:22→03:19)
[2020-07-25] MEDS ORDERED: ONDANSETRON 4 MG/2 ML VIAL ONE (01:22)
[2020-07-25 01:46] LABS: Barbiturates NEGATIVE (NEGATIVE); Benzodiazepines NEGATIVE (NEGATIVE); Cocaine NEGATIVE (NEGATIVE); METHAMPHETAM POSITIVE (NEGATIVE); Methadone NEGATIVE (NEGATIVE); Opiates NEGATIVE (NEGATIVE); Phencyclidine NEGATIVE (NEGATIVE); THC Cannibis POSITIVE (NEGATIVE)
--- NOTE | 2020-07-25 01:48 | EDPHYS ---
Physician Documentation [facility] Name: Kirk Cota Age: 25 yrs Sex: Male : 1995 Arrival Date: 07/24/2020 Time: 22:48 Bed 15 Private MD: ED Physician Boby Sy HPI: 07/24 22:50 This 25 yrs old Male presents to ER via EMS with complaints of cp Nausea/Vomiting, Seizure. 22:50 The patient presents to the emergency department with nausea, that is moderate, cp vomiting, that is intermittent, abdominal pain, of the mid abdomen. Onset: The symptoms/episode began/occurred 2 day(s) ago. 22:50 Possible causes: unknown. cp 22:50 EMS reports patient had seizure while en route to ED. No medications given. cp Historical: - Allergies: 22:53 No Known Allergies; ea - PMHx: 22:53 Seizures; Bipolar disorder; ea - Immunization history:: Adult Immunizations unknown. - Social history:: Smoking status: unknown. ROS: 23:00 Constitutional: Positive for poor PO intake, Negative for fever. cp 23:00 Cardiovascular: Negative for chest pain. cp 23:00 Respiratory: Negative for cough, wheezing. 23:00 Abdomen/GI: Positive for abdominal pain, nausea and vomiting, Negative for hematemesis, black/tarry stool, rectal bleeding. 23:00 Neuro: Positive for history of seizure, Negative for altered mental status. 23:00 All other systems are negative. Exam: 23:05 Constitutional: The patient appears alert, awake, non-diaphoretic, non-toxic, well cp developed, well nourished. 23:05 Head/Face: Normocephalic, atraumatic. cp 23:05 Eyes: Periorbital structures: appear normal, Pupils: equal, round, and reactive to light and accomodation, Extraocular movements: intact throughout, Conjunctiva: normal, no exudate, no injection, Sclera: no appreciated abnormality, Lids and lashes: appear normal, bilaterally. 23:05 ENT: External ear(s): are unremarkable, Ear canal(s): are normal, clear, TM's: dullness, bilaterally, Nose: is normal, Mouth: Lips: moist, Oral mucosa: moist, Posterior pharynx: Airway: no evidence of obstruction, patent. 23:05 Neck: C-spine: vertebral tenderness, is not appreciated, crepitus, is not appreciated, ROM/movement: is normal, is supple, no meningismus, no nuchal rigidity. 23:05 Chest/axilla: Inspection: normal, Palpation: is normal, no crepitus, no tenderness. 23:05 Cardiovascular: Rate: normal, Rhythm: regular, Edema: is not appreciated, JVD: is not appreciated. 23:05 Respiratory: the patient does not display signs of respiratory distress, Respirations: normal, no use of accessory muscles, no retractions, labored breathing, is not present, Breath sounds: are clear throughout, no decreased breath sounds. 23:05 Abdomen/GI: Inspection: abdomen appears normal, Bowel sounds: active, all quadrants, Palpation: soft, in all quadrants, moderate abdominal tenderness, in the epigastric area, rebound tenderness, is not appreciated, involuntary guarding, is not appreciated. 23:05 Neuro: Orientation: to person, place \\T\\ time. Mentation: able to follow commands, slow to respond, Motor: moves all fours, strength is normal. 23:15 ECG was reviewed by the Attending Physician. Vital Signs: 22:50 BP 124 / 78; Pulse 83; Resp 16; Temp 97.6; Pulse Ox 100% ; ea 07/25 00:00 BP 122 / 75; Pulse 88; Resp 18; Pulse Ox 97% on R/A; ea 01:22 BP 126 / 76; Pulse 78; Resp 18; Pulse Ox 98% on R/A; ea 02:43 BP 120 / 82; Pulse 80; Resp 18; Pulse Ox 99% ; ea MDM: 07/24 23:02 Patient medically screened. 07/25 00:51 Physician consultation: Charlie Gomez MD was called at 00:51, was contacted at 00:51, regarding patient's condition, recommends admission and discontinuing dilantin for next 2 days, then restarting at reduced dose. 01:50 Data reviewed: vital signs, nurses notes, lab test result(s), EKG, radiologic studies, cp CT scan. 01:50 Test interpretation: by ED physician or midlevel provider: ECG. Response to treatment: cp the patient's symptoms have mildly improved after treatment, vomiting resolved, and as a result, I will admit patient. 07/24 22:49 Order name: Acetaminophen ea 07/24 22:49 Order name: Basic Metabolic Panel ea 07/24 22:49 Order name: CBC with Diff ea 07/24 22:49 Order name: ETOH Level ea 07/24 22:49 Order name: Hepatic Function ea 07/24 22:49 Order name: PT-INR ea 07/24 22:49 Order name: Ptt, Activated ea 07/24 22:49 Order name: Salicylate ea 07/24 22:49 Order name: Urine Drug Screen ea 07/24 23:01 Order name: Glucose, Ancillary Testing; Complete Time: 23:04 EDMS 07/24 23:04 Order name: Dilantin cp 07/24 23:21 Order name: Lipase cp 07/24 23:23 Order name: CBC with Automated Diff; Complete Time: 00:42 EDMS 07/24 23:25 Order name: Protime (+INR); Complete Time: 00:42 EDMS 07/24 23:25 Order name: PTT, Activated Partial Thromb; Complete Time: 00:42 EDMS 07/24 23:41 Order name: CT Abd/Pelvis - IV Contrast Only cp 07/24 23:49 Order name: Alcohol Serum/Plasma; Complete Time: 00:42 EDMS 07/24 23:49 Order name: Salicylates Level; Complete Time: 00:42 EDMS 07/24 23:49 Order name: Basic Metabolic Panel; Complete Time: 00:42 EDMS 07/25 01:12 Interpretation: Normal except: GLUC 113; GFR 86; CA 8.4. cp 07/24 23:49 Order name: Liver (Hepatic) Function; Complete Time: 00:42 EDMS 07/25 00:42 Interpretation: Normal except: AST 13. cp 07/24 23:49 Order name: Acetaminophen Level; Complete Time: 00:42 EDMS 07/24 23:51 Order name: Phenytoin (Dilantin) Level; Complete Time: 00:42 EDMS 07/25 00:42 Interpretation: Abnormal: PTN 42.1. cp 07/24 23:56 Order name: Lipase; Complete Time: 00:42 EDMS 07/25 00:55 Order name: COVID-19 : Document "Date of Symptom Onset" if Symptomatic. tt3 07/25 01:12 Order name: Urine Dipstick--Ancillary (enter results) tt3 07/25 01:15 Order name: Urine Dipstick-Ancillary; Complete Time: 01:49 EDMS 07/25 01:20 Order name: CORONAVIRUS EDMS 07/25 01:46 Order name: Urine Drug Screen; Complete Time: 01:49 EDMS 07/25 02:07 Order name: SARS-COV-2 RT PCR EDMS 07/24 22:49 Order name: EKG; Complete Time: 22:51 ea 07/24 22:49 Order name: EKG - Nurse/Tech; Complete Time: 23:12 ea 07/24 22:49 Order name: IV Saline Lock; Complete Time: 22:50 ea 07/24 22:49 Order name: Labs collected and sent; Complete Time: 23:12 ea 07/24 22:49 Order name: Urine Dipstick-Ancillary (obtain specimen); Complete Time: 01:29 ea EC/05 23:15 Rate is 84 beats/min. Rhythm is regular. IA interval is normal. QRS interval is normal. cp QT interval is normal. T waves are Inverted in leads aVR, V2. Interpreted by me. Reviewed by me. Administered Medications: 23:12 Drug: NS 0.9% 1000 ml Route: IV; Rate: 1 bolus; Site: left antecubital; ea 07/25 02:36 Follow up: Response: No adverse reaction; IV Intake: 1000ml ea 02:39 Follow up: Response: No adverse reaction; IV Status: Completed infusion; IV Intake: ea 1000ml 07/24 23:12 Drug: Zofran (Ondansetron) 4 mg Route: IVP; Site: left antecubital; ea 07/25 01:18 Follow up: Response: No adverse reaction 07/24 23:28 Drug: Fosphenytoin 1 grams Route: IVPB; Site: left antecubital; ea 07/25 02:40 Follow up: Response: No adverse reaction; IV Status: Completed infusion ea 07/24 23:37 Drug: Pepcid 20 mg Route: IVP; Site: left antecubital; ea 07/25 02:40 Follow up: Response: No adverse reaction ea 07/24 23:37 Drug: morphine 2 mg Route: IVP; Site: left antecubital; ea 07/25 02:40 Follow up: Response: No adverse reaction ea 01:02 Drug: Phenergan 6.25 mg Route: IVP; Site: left antecubital; ea 02:39 Follow up: Response: No adverse reaction ea 01:17 Drug: Zofran (Ondansetron) 4 mg Route: IVP; Site: left antecubital; ea 02:39 Follow up: Response: No adverse reaction ea 01:17 Drug: NS 0.9% 1000 ml Route: IV; Rate: 1 bolus; Site: left antecubital; ea 02:39 Follow up: Response: No adverse reaction; IV Status: Completed infusion; IV Intake: ea 1000ml Disposition: 02:00 Chart complete. cp 03:16 Co-signature as Attending Physician, Boby Sy MD. [email or web address] Disposition: 07/25/20 01:47 Hospitalization ordered by Wili Carrillo for Inpatient Admission. Preliminary diagnosis are Poisoning by hydantoin derivatives, accidental (unintentional), Nausea and vomiting - intractable, Epilepsy and recurrent seizures, Adverse effect of amphetamines. - Bed requested for Telemetry/MedSurg (Inpatient). - Status is Inpatient Admission. ea - Condition is Fair. - Problem is new. - Symptoms have improved. Signatures: Dispatcher [employer] EDMS Lawrence Keene PA PA cp Garcia, Cindy, RN RN cg Antunez, Elena, RN RN ea Holmes, Maurice, MD MD [facility] Corrections: (The following items were deleted from the chart) 01:12 00:42 Normal except: GLUC 113; GFR 86. cp cp 01:48 01:47 Hospitalization Ordered by Wili Carrillo MD for Inpatient Admission. Preliminary cp diagnosis is Poisoning by hydantoin derivatives, accidental (unintentional); Nausea and vomiting. Bed requested for Telemetry/MedSurg (Inpatient). Status is Inpatient Admission. Condition is Fair. Problem is new. Symptoms have improved. cp 01:50 01:48 07/25/2020 01:47 Hospitalization Ordered by Wili Carrillo MD for Inpatient cp Admission. Preliminary diagnosis is Poisoning by hydantoin derivatives, accidental (unintentional); Nausea and vomiting; Epilepsy and recurrent seizures. Bed requested for Telemetry/MedSurg (Inpatient). Status is Inpatient Admission. Condition is Fair. Problem is new. Symptoms have improved. cp 02:21 01:50 07/25/2020 01:47 Hospitalization Ordered by Wili Carrillo MD for Inpatient cg Admission. Preliminary diagnosis is Poisoning by hydantoin derivatives, accidental (unintentional); Nausea and vomiting - intractable; Epilepsy and recurrent seizures; Adverse effect of amphetamines. Bed requested for Telemetry/MedSurg (Inpatient). Status is Inpatient Admission. Condition is Fair. Problem is new. Symptoms have improved. cp 02:42 02:21 07/25/2020 01:47 Hospitalization Ordered by Wili Carrillo MD for Inpatient ea Admission. Preliminary diagnosis is Poisoning by hydantoin derivatives, accidental (unintentional); Nausea and vomiting - intractable; Epilepsy and recurrent seizures; Adverse effect of amphetamines. Bed requested for Telemetry/MedSurg (Inpatient). Status is Inpatient Admission. Condition is Fair. Problem is new. Symptoms have improved. cg
--- NOTE | 2020-07-25 01:48 | ER ---
Nurse's Notes [facility] Name: Kirk Cota Age: 25 yrs Sex: Male : 1995 Arrival Date: 07/24/2020 Time: 22:48 Bed 15 Private MD: Diagnosis: Poisoning by hydantoin derivatives, accidental (unintentional);Nausea and vomiting-intractable;Epilepsy and recurrent seizures;Adverse effect of amphetamines Presentation: 07/24 22:50 Chief complaint: EMS states: Reports initial call was for n/v pt has history of ea seizures, EMS reports pt started having seizure in back of ambulance. Pt is postictal. Coronavirus screen: At this time, the client does not indicate any symptoms associated with coronavirus-19. Ebola Screen: No symptoms or risks identified at this time. Initial Sepsis Screen: Does the patient meet any 2 criteria? No. Patient's initial sepsis screen is negative. Does the patient have a suspected source of infection? No. Patient's initial sepsis screen is negative. Risk Assessment: Do you want to hurt yourself or someone else? Patient reports no desire to harm self or others. Onset of symptoms was July 24, 2020. 22:50 Acuity: MIRTA 3 ea 22:50 Method Of Arrival: EMS: [facility] ea Historical: - Allergies: 22:53 No Known Allergies; ea - PMHx: 22:53 Seizures; Bipolar disorder; ea - Immunization history:: Adult Immunizations unknown. - Social history:: Smoking status: unknown. Screenin:49 Abuse screen: Denies threats or abuse. Nutritional screening: No deficits noted. ea Tuberculosis screening: No symptoms or risk factors identified. Fall Risk IV access (20 points). Assessment: 22:53 General: Appears in no apparent distress. Behavior is calm, cooperative, appropriate ea for age. Pain: Unable to use pain scale. FLACC scale score is 0 out of 10. Neuro: Level of Consciousness is responds to loud stimulus. Oriented to none. Respiratory: Airway is patent Respiratory effort is even, unlabored, Respiratory pattern is regular, symmetrical. Derm: Skin is pink, warm \T\ dry. 07/25 00:33 Reassessment: Patient and/or family updated on plan of care and expected duration. Pain ea level reassessed. Pt taken to CT. 00:53 Reassessment: poison control has been notified due to serum dilantin results of 42.1, sg case number is [id number], recommendation observation status with serial dilantin levels q 4-6 hrs to assess for a peak level, then once a peak level obtained follow up with 2 more serial lab draws to watch for decreasing into normal ranges. 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 pt may experience AV conduction delay on EKG as well as bradycardia and hypotension, treat accordingly. 02:41 Reassessment: Patient and/or family updated on plan of care and expected duration. Pain ea level reassessed. Patient is alert, oriented x 3, equal unlabored respirations, skin warm/dry/pink. Report given to receiving nurse. Pt admitted to second floor. Pt left ED vias stretcher per solar energy technician. Pt tolerating well. Vital Signs: 07/24 22:50 BP 124 / 78; Pulse 83; Resp 16; Temp 97.6; Pulse Ox 100% ; ea 07/25 00:00 BP 122 / 75; Pulse 88; Resp 18; Pulse Ox 97% on R/A; ea 01:22 BP 126 / 76; Pulse 78; Resp 18; Pulse Ox 98% on R/A; ea 02:43 BP 120 / 82; Pulse 80; Resp 18; Pulse Ox 99% ; ea ED Course: 07/24 22:48 Patient arrived in ED. ea 22:52 Triage completed. ea 22:52 Patient has correct armband on for positive identification. Placed in gown. Bed in low ea position. Call light in reach. Side rails up X2. surveillance system monitor on. Pulse ox on. NIBP on. 22:52 Arm band placed on right wrist. Patient placed in an exam room, on a stretcher, on ea pulse oximetry. 22:53 Maintain EMS IV. Dressing intact. Good blood return noted. Site clean \T\ dry. Gauge \T\ ea site: 20G left forearm . 22:58 Boby Sy MD is Attending Physician. [facility] 22:59 Lawrence Keene PA is PHCP. cp 23:01 Christina Valero RN is Primary Nurse. ea 07/25 01:21 No provider procedures requiring assistance completed. Patient admitted, IV remains in ea place. 01:44 Wili Carrillo MD is Hospitalizing Provider. cp Administered Medications: 07/24 23:12 Drug: NS 0.9% 1000 ml Route: IV; Rate: 1 bolus; Site: left antecubital; ea 07/25 02:36 Follow up: Response: No adverse reaction; IV Intake: 1000ml ea 02:39 Follow up: Response: No adverse reaction; IV Status: Completed infusion; IV Intake: ea 1000ml 07/24 23:12 Drug: Zofran (Ondansetron) 4 mg Route: IVP; Site: left antecubital; ea 07/25 01:18 Follow up: Response: No adverse reaction ea 07/24 23:28 Drug: Fosphenytoin 1 grams Route: IVPB; Site: left antecubital; ea 07/25 02:40 Follow up: Response: No adverse reaction; IV Status: Completed infusion ea 07/24 23:37 Drug: Pepcid 20 mg Route: IVP; Site: left antecubital; ea 07/25 02:40 Follow up: Response: No adverse reaction ea 07/24 23:37 Drug: morphine 2 mg Route: IVP; Site: left antecubital; ea 07/25 02:40 Follow up: Response: No adverse reaction ea 01:02 Drug: Phenergan 6.25 mg Route: IVP; Site: left antecubital; ea 02:39 Follow up: Response: No adverse reaction ea 01:17 Drug: Zofran (Ondansetron) 4 mg Route: IVP; Site: left antecubital; ea 02:39 Follow up: Response: No adverse reaction ea 01:17 Drug: NS 0.9% 1000 ml Route: IV; Rate: 1 bolus; Site: left antecubital; ea 02:39 Follow up: Response: No adverse reaction; IV Status: Completed infusion; IV Intake: ea 1000ml Intake: 02:36 IV: 1000ml; Total: 1000ml. ea 02:39 IV: 1000ml; Total: 2000ml. ea 02:39 IV: 1000ml; Total: 3000ml. ea Outcome: 01:47 Decision to Hospitalize by Provider. cp 01:52 Condition: stable ea 01:52 Instructed on the need for admit. 02:41 Admitted to Med/surg accompanied by tech, via stretcher, room 210, with chart, Report ea called to Receiving nurse on second floor 02:42 Patient left the ED. ea Signatures: Raymundo Ramirez RN RN Lawernce Magallon PA PA cp Antunez, Elena RN Boby Perera ea, MD MD [email or web address]
--- NOTE | 2020-07-25 02:19 | P.HP ---
Certification for Inpatient Patient admitted to: Observation With expected LOS: <2 Midnights Patient will require the following post-hospital care: None Practitioner: I am a practitioner with admitting privileges, knowledge of patient current condition, hospital course, and medical plan of care. Services: Services provided to patient in accordance with Admission requirements found in Title 42 Section 412.3 of the Code of Federal Regulations <Fabrice Man - Last Filed: 07/25/20 02:15> Patient History Date of Service: 07/25/20 Primary Care Provider: Unknown Reason for admission: Phenytoin toxicity History of Present Illness: 25-year-old male with history of seizure disorder on Dilantin, bipolar disorder, drug abuse presents emergency department for seizure, altered mental status, nausea and vomiting. Patient reportedly staying in skilled nursing currently. In emergency department patient is drowsy, lethargic, speech is slowed, slurred patient appears confused. Workup in the emergency department CT head negative review findings CT abdomen pelvis negative for acute findings lab significant for penicillin level 42.1 drug screen positive for amphetamines and THC. Poison control was called recommended repeat phenytoin levels every 4-6 hr until the peak is reached in addition to supportive care with special considerations for possible hypotension, bradycardia. Expected findings include nystagmus, slurred speech, ataxia, tremor, confusion and possibly told not high enough levels. At 1 point patient was more coherent and denies suicidal ideations CT staff, I was unable to discuss this with patient due to mental status. Information obtained from ED staff and chart review common during last visit to the emergency department patient was taking Dilantin 100 mg p.o. b.i.d., current dose unknown. Case was discussed with neurology who also recommended observation and discontinuation of phenytoin for 2 days in addition to trending serum phenytoin levels. - Past Medical/Surgical History Diabetic: No -: seizures -: left foot great toe sx Psychosocial/ Personal History: Unable to obtain - Family History Father -: Cancer, Other (see notes) Notes: brain tumour - Social History Smoking Status: Unknown if ever smoked Alcohol use: No CD- Drugs: Yes Caffeine use: Yes <Fabrice Man - Last Filed: 07/25/20 02:15> Date of Service: 07/25/20 <Wili Carrillo - Last Filed: 07/25/20 10:49> Allergies No Known Allergies Allergy (Verified 07/25/20 06:21) Home Medications: Folic Acid 0.8 mcg PO DAILY 05/10/18 Phenytoin Sodium Extended [Dilantin] 300 mg PO DAILY 05/10/18 Review of Systems is unable to be obtained <Fabrice Man - Last Filed: 07/25/20 02:15> Physical Examination - Physical Exam General: Confused, Other (Lethargic, drowsy) HEENT: Atraumatic, Normocephalic, Other (Mucous membranes dry), Abnormal EOM (Horizontal nystagmus noted) Neck: Supple Respiratory: Normal air movement Cardiovascular: No edema, Regular rate/rhythm, Normal S1 S2 Capillary refill: <2 Seconds Gastrointestinal: Normal bowel sounds, Soft and benign, No tenderness Musculoskeletal: No contractures, No erythema, No tenderness Integumentary: No tenderness/swelling, No erythema, No warmth Neurological: Normal strength at 5/5 x4 extr, Normal tone, Abnormal speech (Speech slow, slurred) - Studies Laboratory Data (last 24 hrs) 07/24/20 22:49: Lipase 60 L 07/24/20 22:49: PT 12.1, INR 1.05, APTT 30.0 07/24/20 22:49: WBC 6.60, Hgb 14.5, Hct 41.8, Plt Count 203 07/24/20 22:49: Sodium 140, Potassium 3.6, BUN 11, Creatinine 1.04, Glucose 113 H, Total Bilirubin 0.3, AST 13 L, ALT 42, Alkaline Phosphatase 66 <Fabrice Man - Last Filed: 07/25/20 02:15> - Studies Laboratory Data (last 24 hrs) 07/24/20 22:49: Lipase 60 L 07/24/20 22:49: PT 12.1, INR 1.05, APTT 30.0 07/24/20 22:49: WBC 6.60, Hgb 14.5, Hct 41.8, Plt Count 203 07/24/20 22:49: Sodium 140, Potassium 3.6, BUN 11, Creatinine 1.04, Glucose 113 H, Total Bilirubin 0.3, AST 13 L, ALT 42, Alkaline Phosphatase 66 <Wili Carrillo - Last Filed: 07/25/20 10:49> Assessment and Plan - Plan Assessment Toxic metabolic encephalopathy secondary to Phenytoin toxicity Plan Toxic metabolic encephalopathy secondary to Phenytoin toxicity: Case discussed with neurology and was controlled. Continue to monitor serum phenytoin levels every 6 hr until level is trending down. Continue with supportive care with special attention to hemodynamics and ABCs. Seizure precautions, hold Dilantin for at least 2 days prior to initiating. DVT prophylaxis Lovenox 40 mg subcutaneous once daily. Patient with nausea, vomiting, as well continue with p.r.n. Zofran, CT abdomen pelvis negative for any acute findings. Anticipate clinical improvement next 12 in 24 hr. Discharge Plan: Home Plan to discharge in: 24 Hours - Advance Directives Does patient have a Living Will: No Does patient have a Durable POA for Healthcare: Yes - Code Status/Comfort Care Code Status Assessed: Yes (Full code) Critical Care: No Time Spent Managing Pts Care (In Minutes): 55 <Fabrice Man - Last Filed: 07/25/20 02:15> - Plan Plan of care reviewed as noted above by Fabrice Man and agree with plan trending phenytoin levels, will further discuss with tox if needed patient more awake, denies SI/HI, remains sleepy / slight lethargy, but arouses to verbal stimuli <Wili Carrillo - Last Filed: 07/25/20 10:49>
[2020-07-25] MEDS ORDERED: ONDANSETRON 4 MG/2 ML VIAL IV PRN (03:08)
[2020-07-25] MEDS: NA CHLORIDE 0.9% 1,000 ML IV SCH ×3 (03:24→23:08)
[2020-07-25 05:22] LABS: ALT/SGPT 41 U/L (12-78); AST/SGOT 14 U/L (15-37); Albumin 3.6 g/dL (3.4-5.0); Alkaline Phosphatase 70 U/L (45-117); BUN Blood Urea Nitrogen 7 mg/dL (7-18); Bicarbonate 27 mmol/L (21-32); Bilirubin Total 0.2 mg/dL (0.2-1.0); Glucose Level 166 mg/dL (74-106); Magnesium 1.8 mg/dL (1.8-2.4); Potassium 4.1 mmol/L (3.5-5.1); Protein, Total 7.1 g/dL (6.4-8.2); Sodium Level 141 mmol/L (136-145); Thyroid Stimulating Hormone 0.132 uIU/mL (0.360-3.740)
[2020-07-25 05:24] LABS: Phenytoin (Dilantin) Level 53.3 ug/mL (10.0-20.0)
[2020-07-25 05:24] LABS: Urine Appearance CLEAR; Urine Bilirubin NEGATIVE (NEG); Urine Blood NEGATIVE (NEG); Urine Color YELLOW; Urine Glucose 2+ (NEG); Urine Protein NEGATIVE (NEG); Urine Specific Gravity 1.015 (1.005-1.030); Urine Urobilinogen 0.2 mg/dL (0.2-1.0); Urine pH 7.5 (5.0-7.0)
[2020-07-25 05:53] LABS: Urine Microscopic Reflex NO UMIC
[2020-07-25] MEDS ORDERED: MAGNESIUM SULFATE 1 gm IVPB 1 GM/100 ML BAG IV ONE (06:00)
[2020-07-25] MEDS: ENOXAPARIN 40 MG/0.4 ML SQ SCH (08:42)
--- NOTE | 2020-07-25 22:21 | RAD REPORT ---
EXAM DESCRIPTION: CT - Abdomen Pelvis W Contrast - 07/25/2020 6:39 am CLINICAL HISTORY: 25 years, Male, ABD PAIN COMPARISON: 02/20/2018. TECHNIQUE: Contrast-enhanced images of the abdomen and pelvis were performed utilizing 2 mm slice th ickness at 2 mm interval reconstruction from the lung bases to the ischial tuberosities after the adm inistration of IV contrast. In addition multiplanar reformats in the coronal and sagittal plane were obtained and reviewed. An individualized dose optimization technique, Automated Exposure Control, was utilized for the perfo rmed procedure. FINDINGS: Study is compromised due to patient moving plane on the right lateral decubitus during the middle of the exam The lung bases demonstrate grossly to be within normal limits allowing for the motion. Grossly the liver, gallbladder, pancreas, spleen and adrenal glands demonstrate to be unremarkable, n o focal lesions are noted. Grossly the kidneys demonstrate normal uptake of contrast media. No nephrolithiasis and/or hydronep hrosis was identified. Grossly the unopacified stomach, small bowel and large bowel demonstrate to be within normal limits. There is no significant bowel dilatation allowing for motion. Fecal residue could suggest fecal stasi s. The appendix was not visualized. The urinary bladder demonstrate to be distended. The prostate gland is normal. The aorta demonstr ate to be normal. There is no retroperitoneal lymphadenopathy. There is no evidence for ascites. IMPRESSION: SEVERELY, MY STUDY DUE TO MOTION DURING THE SCANNING. DISTENDED URINARY BLADDER. 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 The interpreting radiologist is fully responsible for the content of the report.
--- NOTE | 2020-07-26 03:39 | P.PN ---
Subjective Date of Service: 07/26/20 Primary Care Provider: Unknown Chief Complaint: Phenytoin toxicity Subjective: Improving Patient mental status improving, currently lucid oriented x3. Review of Systems Unremarkable Physical Examination - Vital Signs Temperature: 97.9 F Blood Pressure: 120/72 Pulse: 78 Respirations: 18 Pulse Ox (%): 100 - Physical Exam General: Alert, In no apparent distress HEENT: Atraumatic, PERRLA, Mucous membr. moist/pink, Abnormal EOM (Horizontal nystagmus noted) Neck: Supple, JVD not distended Respiratory: Clear to auscultation bilaterally, Normal air movement Cardiovascular: Regular rate/rhythm, Normal S1 S2 Capillary refill: <2 Seconds Gastrointestinal: Normal bowel sounds, No tenderness Musculoskeletal: No tenderness Integumentary: No rashes Neurological: Normal speech, Normal tone, Normal affect Assessment & Plan Discharge Plan: Psychiatry Plan to discharge in: 48 Hours - Code Status/Comfort Care Code Status Assessed: Yes (Full code) Physician Review Additional Text: Assessment Phenytoin toxicity secondary to suicide attempt history of bipolar disorder and previous suicide attempts Plan Phenytoin toxicity secondary to suicide attempt history of bipolar disorder and previous suicide attempts: Mental status improving greatly, patient currently lucid, oriented x3. When pressed patient admits he took extra 300 mg of Dilantin and methamphetamine that day and a half ago in attempt to harm himself because his grandfather recently and he no longer has a place to live. Patient reports history of suicidal ideation/attempt. Patient also has history of inpatient psychiatric treatment at the [facility]. Dilantin level had remained in the 40s/50s throughout the day but had an isolated very high reading with level greater than 160, and the level after this was in the 40s again this could of been a spurious reading. Patient's mental status improving greatly, case was discussed with poison control after reading greater than 160, other recommended supportive care with the possible addition of activated charcoal 0.25 milligram/kilogram q.4h if patient was not at risk for aspiration. Will go ahead and give 1 dose of activated charcoal at this time and continue to trend Dilantin level. Patient will likely need inpatient psychiatric treatment once he is deemed stable for this. Will have a sitter assigned to stay at bedside going forward. Continue seizure precautions, pointing and recommended Keppra if patient does begin to have seizures. Critical Care: No Time Spent Managing Pts Care (In Minutes): 55
[2020-07-26] MEDS ORDERED: activated charcoaL 25 GM/120 ML TUBE PO ONE (03:40)
[2020-07-26 06:33] LABS: Absolute Lymphocytes (CBC) 1.8 K/uL (0.7-4.9); Basophils % 0.8 % (0-1.3); Hematocrit 44.1 % (39.6-49.0); Lymphocytes % 37.3 % (15.3-44.8); MPV 7.8 fL (7.6-11.3); RBC Red Blood Cell Count 4.91 M/uL (4.33-5.43)
[2020-07-26 07:06] LABS: ALT/SGPT 42 U/L (12-78); AST/SGOT 13 U/L (15-37); Albumin 3.1 g/dL (3.4-5.0); Alkaline Phosphatase 76 U/L (45-117); BUN Blood Urea Nitrogen 7 mg/dL (7-18); Bicarbonate 28 mmol/L (21-32); Bilirubin Total 0.2 mg/dL (0.2-1.0); Glucose Level 87 mg/dL (74-106); Magnesium 1.8 mg/dL (1.8-2.4); Potassium 3.6 mmol/L (3.5-5.1); Protein, Total 6.5 g/dL (6.4-8.2); Sodium Level 140 mmol/L (136-145)
[2020-07-26 07:18] LABS: Phenytoin (Dilantin) Level 39.5 ug/mL (10.0-20.0)
[2020-07-26] MEDS ORDERED: POTASSIUM CL SA 10 MEQ TAB PO ONE ×2 (09:00→09:20)
[2020-07-26] MEDS ORDERED: MAGNESIUM SULFATE 1 gm IVPB 1 GM/100 ML BAG IV ONE ×2 (09:00→09:20)
[2020-07-26] MEDS: ACETAMINOPHEN 500 MG TAB PO PRN (09:05)
[2020-07-26] MEDS: ENOXAPARIN 40 MG/0.4 ML SQ SCH (09:05)
[2020-07-26] MEDS ORDERED: ACETAMINOPHEN 500 MG TAB ONE (09:19)
[2020-07-26] MEDS ORDERED: ENOXAPARIN 40 MG/0.4 ML SQ ONE (09:20)
[2020-07-26] MEDS: NA CHLORIDE 0.9% 1,000 ML IV SCH ×3 (13:16→23:39)
[2020-07-26] MEDS ORDERED: NA CHLORIDE 0.9% 1,000 ML ONE ×2 (13:31→23:55)
[2020-07-27] MEDS ORDERED: LORAZEPAM 1 MG TABLET PO ONE (04:20)
--- NOTE | 2020-07-27 04:28 | P.PN ---
Subjective Date of Service: 07/27/20 Primary Care Provider: Unknown Chief Complaint: Phenytoin toxicity Subjective: Tolerating diet, Ambulating, Improving Patient currently awake, alert, oriented x3. Patient becoming agitated stating he would rather be in alf than in the hospital, has required medications for anxiety/agitation. <Fabrice Man - Last Filed: 07/27/20 04:24> Date of Service: 07/27/20 <Wili Carrillo - Last Filed: 07/27/20 16:50> Review of Systems Unremarkable <Fabrice Man - Last Filed: 07/27/20 04:24> Physical Examination - Vital Signs Temperature: 98.9 F Blood Pressure: 130/82 Pulse: 95 Respirations: 14 Pulse Ox (%): 100 - Physical Exam General: Alert, In no apparent distress, Other (Agitated, anxious) HEENT: Atraumatic, PERRLA, EOMI Neck: Supple, JVD not distended Respiratory: Clear to auscultation bilaterally, Normal air movement Cardiovascular: Regular rate/rhythm, Normal S1 S2 Gastrointestinal: Normal bowel sounds, No tenderness Musculoskeletal: No tenderness Integumentary: No rashes Neurological: Normal speech, Normal tone, Normal affect Lymphatics: No axilla or inguinal lymphadenopathy <Fabrice Man - Last Filed: 07/27/20 04:24> Assessment & Plan Discharge Plan: Psychiatry Plan to discharge in: 48 Hours - Code Status/Comfort Care Code Status Assessed: Yes (Full code) Physician Review Additional Text: Assessment Phenytoin toxicity secondary to suicide attempt history of bipolar disorder and previous suicide attempts Plan Phenytoin toxicity secondary to suicide attempt history of bipolar disorder and previous suicide attempts: Mental status improving greatly, patient currently lucid, oriented x3. When pressed patient admits he took extra 300 mg of Dilantin and methamphetamine that day and a half ago in attempt to harm himself because his grandfather recently and he no longer has a place to live. Patient reports history of suicidal ideation/attempt. Patient also has history of inpatient psychiatric treatment at the [facility]. Patient became agitated/anxious last night, demanded to leave. Spoke with patient at length that this is not possible due to his suicidal ideations and suicide attempt. Mental health therapy was called and the emergency long term order was obtained and is now active. Patient was calmed down but again around 0 400 became agitated stating he was going to leave, patient change status close and took out his IV, [place] [employer] department were called who came and discuss with patient that he was not permitted to leave at this time due to the emergency long term order. Case reviewed with poison control again today, Dilantin level currently around 38, patient mental status back at baseline, ambulating without difficulty no noted ataxia. poison control recommends patient remain in a setting where his Dilantin level can be monitored and tell this therapeutic so they can be initiated appropriately, recommend benzodiazepine as needed for anxiety/agitation and avoidance of antipsychotic agents as much as possible due to decrease and seizure threshold when these medications are given. Added p .r.n. benzodiazepine medication for agitation/anxiety. Have initiated transfer with [facility] as they have a medical psychiatric unit, if they do not have any pets patient will need to remain here and tell Dilantin level reaches therapeutic level. Critical Care: No Time Spent Managing Pts Care (In Minutes): 55 <Fabrice Man - Last Filed: 07/27/20 04:24> Physician Review Additional Text: patient states he doesn't recall discussion yesterday when he stated he was suicidal and wanted to go to inpatient psych facility. More calm this morning. girlfriend came to visit which helped relax him. <Wili Carrillo - Last Filed: 07/27/20 16:50>
[2020-07-27] MEDS ORDERED: LORAZEPAM 1 MG TABLET ONE (04:39)
[2020-07-27] MEDS: NA CHLORIDE 0.9% 1,000 ML IV SCH ×2 (05:08→15:08)
[2020-07-27 06:54] LABS: ALT/SGPT 90 U/L (12-78); AST/SGOT 43 U/L (15-37); Albumin 3.2 g/dL (3.4-5.0); Alkaline Phosphatase 71 U/L (45-117); BUN Blood Urea Nitrogen 6 mg/dL (7-18); Bicarbonate 28 mmol/L (21-32); Bilirubin Total 0.3 mg/dL (0.2-1.0); Glucose Level 117 mg/dL (74-106); Magnesium 1.7 mg/dL (1.8-2.4); Phenytoin (Dilantin) Level 36.5 ug/mL (10.0-20.0); Phosphorus 2.4 mg/dL (2.5-4.9); Potassium 3.7 mmol/L (3.5-5.1); Protein, Total 7.1 g/dL (6.4-8.2); Sodium Level 140 mmol/L (136-145)
[2020-07-27] MEDS ORDERED: POTASSIUM CL SA 10 MEQ TAB PO ONE ×2 (07:49→08:00)
[2020-07-27] MEDS ORDERED: MAGNESIUM OXIDE 400 MG TAB ONE (07:50)
[2020-07-27] MEDS ORDERED: ENOXAPARIN 40 MG/0.4 ML SQ ONE (08:00)
[2020-07-27] MEDS ORDERED: MAGNESIUM OXIDE 400 MG TAB PO ONE (08:00)
[2020-07-27] MEDS ORDERED: NICOTINE 21 MG/PAT TD ONE (08:00)
[2020-07-27] MEDS: ENOXAPARIN 40 MG/0.4 ML SQ SCH (08:32)
--- NOTE | 2020-07-27 08:40 | RAD REPORT ---
EXAM DESCRIPTION: CT - Abdomen Pelvis Wo Contrast - 07/26/2020 10:08 pm CLINICAL HISTORY: 25 years, Male, ABD PAIN COMPARISON: 02/20/2018. TECHNIQUE: Contrast-enhanced images of the abdomen and pelvis were performed utilizing 2 mm slice th ickness at 2 mm interval reconstruction from the lung bases to the ischial tuberosities after the adm inistration of IV contrast. In addition multiplanar reformats in the coronal and sagittal plane were obtained and reviewed. An individualized dose optimization technique, Automated Exposure Control, was utilized for the perfo rmed procedure. FINDINGS: Study is compromised due to patient moving plane on the right lateral decubitus during the middle of the exam The lung bases demonstrate grossly to be within normal limits allowing for the motion. Grossly the liver, gallbladder, pancreas, spleen and adrenal glands demonstrate to be unremarkable, n o focal lesions are noted. Grossly the kidneys demonstrate normal uptake of contrast media. No nephrolithiasis and/or hydronep hrosis was identified. Grossly the unopacified stomach, small bowel and large bowel demonstrate to be within normal limits. There is no significant bowel dilatation allowing for motion. Fecal residue could suggest fecal stasi s. The appendix was not visualized. The urinary bladder demonstrate to be distended. The prostate gland is normal. The aorta demonstr ate to be normal. There is no retroperitoneal lymphadenopathy. There is no evidence for ascites. IMPRESSION: SEVERELY, MY STUDY DUE TO MOTION DURING THE SCANNING. DISTENDED URINARY BLADDER. Electronically signed by: Alfonso Goodwin MD 07/25/2020 1:42 AM USER SUPPORT ANALYST SUPERVISOR Due to temporary technical issues with the PACS/Fluency reporting system, reports are being signed by the in house radiologists without review as a courtesy to insure prompt reporting. The interpreting radiologist is fully responsible for the content of the report.
[2020-07-27] MEDS: NICOTINE 14 MG/PAT TD SCH (09:00)
[2020-07-27] MEDS: clonazePAM 1 MG TAB PO PRN ×2 (09:35→16:14)
[2020-07-27] MEDS ORDERED: clonazePAM 0.5 MG TAB ONE (09:51)
[2020-07-27] MEDS ORDERED: clonazePAM 1 MG TAB ONE (16:31)
[2020-07-28] MEDS: NA CHLORIDE 0.9% 1,000 ML IV SCH ×3 (01:08→21:08)
[2020-07-28] MEDS ORDERED: LORazepam 2 MG/ML VIAL IM ONE (03:04)
[2020-07-28] MEDS ORDERED: LORazepam 2 MG/ML VIAL ONE (03:26)
[2020-07-28 05:56] LABS: Absolute Lymphocytes (CBC) 1.3 K/uL (0.7-4.9); Basophils % 1.3 % (0-1.3); Lymphocytes % 30.2 % (15.3-44.8)
[2020-07-28 06:02] LABS: Bilirubin Direct 0.1 mg/dL (0-0.2); Bilirubin Total 0.2 mg/dL (0.2-1.0); Potassium 4.3 mmol/L (3.5-5.1); Protein, Total 6.5 g/dL (6.4-8.2)
[2020-07-28] MEDS ORDERED: clonazePAM 1 MG TAB ONE (08:19)
[2020-07-28] MEDS ORDERED: ENOXAPARIN 40 MG/0.4 ML SQ ONE (08:20)
[2020-07-28] MEDS: ENOXAPARIN 40 MG/0.4 ML SQ SCH (08:38)
[2020-07-28] MEDS: clonazePAM 1 MG TAB PO PRN (08:39)
[2020-07-28] MEDS: NICOTINE 14 MG/PAT TD SCH (09:00)
--- NOTE | 2020-07-28 14:55 | P.PN ---
Subjective Date of Service: 07/28/20 Primary Care Provider: Unknown Chief Complaint: Phenytoin toxicity Patient has no complain. He states he feels better. He is not agitated. He is looking forward to inpatient psychiatry. Physical Examination - Vital Signs Temperature: 98.9 F Blood Pressure: 110/68 Pulse: 86 Respirations: 18 Pulse Ox (%): 98 - Physical Exam General: Alert, In no apparent distress, Oriented x3 HEENT: Mucous membr. moist/pink Neck: Supple, JVD not distended Respiratory: Clear to auscultation bilaterally, Normal air movement Cardiovascular: No edema, Normal pulses, Regular rate/rhythm, Normal S1 S2 Gastrointestinal: Normal bowel sounds, Soft and benign, Non-distended Musculoskeletal: No swelling, No tenderness Integumentary: No rashes, No erythema Neurological: Normal speech, Normal strength at 5/5 x4 extr, Cranial nerves 3-12 intact Assessment And Plan - Plan Dilantin level is improving and now at 32.5. Continue IV hydration and other supportive measures Ativan p.r.n. for agitation Continue to monitor Dilantin level. Patient plan for inpatient psych placement. He is currently on [facility] order. Physician Review Additional Text: patient states he doesn't recall discussion yesterday when he stated he was suicidal and wanted to go to inpatient psych facility. More calm this morning. girlfriend came to visit which helped relax him.
[2020-07-29] MEDS ORDERED: PANTOPRAZOLE 40MG TABLET PO ONE ×2 (03:33→03:55)
[2020-07-29] MEDS: ACETAMINOPHEN 500 MG TAB PO PRN (03:41)
[2020-07-29] MEDS ORDERED: ACETAMINOPHEN 500 MG TAB ONE (03:55)
[2020-07-29] MEDS: clonazePAM 1 MG TAB PO PRN ×2 (03:59→16:19)
[2020-07-29] MEDS ORDERED: clonazePAM 1 MG TAB ONE ×2 (04:15→16:35)
[2020-07-29] MEDS: NA CHLORIDE 0.9% 1,000 ML IV SCH ×2 (07:00→17:08)
[2020-07-29] MEDS ORDERED: ENOXAPARIN 40 MG/0.4 ML SQ ONE (07:14)
[2020-07-29] MEDS: ENOXAPARIN 40 MG/0.4 ML SQ SCH (09:00)
[2020-07-29] MEDS: NICOTINE 14 MG/PAT TD SCH (09:02)
--- NOTE | 2020-07-29 13:04 | P.PN ---
Subjective Date of Service: 07/29/20 Primary Care Provider: Unknown Chief Complaint: Phenytoin toxicity Patient has no complain. He states he feels better. He is occasionally agitated. He agrees to inpatient psychiatry placement. Physical Examination - Vital Signs Temperature: 98.6 F Blood Pressure: 116/66 Pulse: 89 Respirations: 18 Pulse Ox (%): 99 - Physical Exam General: In no apparent distress, Oriented x3 Neck: Supple, JVD not distended Respiratory: Clear to auscultation bilaterally, Normal air movement Cardiovascular: No edema, Regular rate/rhythm, Normal S1 S2 Gastrointestinal: Soft and benign, Non-distended, No tenderness Musculoskeletal: No swelling, No tenderness Integumentary: No rashes Neurological: Normal strength at 5/5 x4 extr, Cranial nerves 3-12 intact Assessment And Plan - Plan Dilantin level is improving and now at 26.6. Continue IV hydration and other supportive measures Ativan p.r.n. for agitation. Continue follow up Continue to monitor Dilantin level. Resume Dilantin once level improved to therapeutic range. Patient plan for inpatient psych placement. Awaiting bed availability at [facility]. Physician Review Additional Text: patient states he doesn't recall discussion yesterday when he stated he was suicidal and wanted to go to inpatient psych facility. More calm this morning. girlfriend came to visit which helped relax him.
--- NOTE | 2020-07-29 15:02 | P.DS ---
Admission Date: 07/25/20 Discharge Date: 07/30/20 Primary Care Provider: Unknown Disposition: TRANSFR TO OTHER-PSY/CD/REHAB Discharge Condition: FAIR Reason for Admission: Phenytoin toxicity Brief History of Present Illness: 25-year-old gentleman with a history of seizure disorder on Dilantin, history of drug abuse and bipolar disorder presented to the emergency department for seizure altered mental status, nausea and vomiting. Per report, patient came from a [facility]. He was noted to be drowsy and lethargic with slow slurred speech. CT head done in the emergency department was negative. CT abdomen pelvis also negative. Toxicology screen was positive for amphetamines and THC. His Dilantin level was elevated to 42.1. Poison control was contacted who recommended supportive measures and Dilantin level monitoring every 4-6 hr. Case was discussed with neurology and patient hospitalized for further management. Hospital Course: Patient admitted to the intensive care unit and treated with supportive measures including IV fluid. His phenytoin level was monitored and it gradually improved to therapeutic levels. Patient demonstrated periods of agitation and confusion. Subsequent history taking revealed patient took extra doses of the Dilantin in order to harm himself because his grandfather . There is a report patient has a prior history of suicide attempts. His agitation was managed with Ativan and Klonopin. Patient was initially placed on temporary jail order because of his agitation confusion and wanting to leave the hospital. He later agreed to go to inpatient psychiatry voluntarily. Patient clinical condition has stabilized. Vital signs stable. He has been accepted to [facility] inpatient psychiatry. Patient is deemed clinically stable for transfer. Vital Signs/Physical Exam: Temp Pulse Resp BP Pulse Ox 98.6 F 89 18 116/66 99 07/29/20 13:04 07/29/20 13:04 07/29/20 13:04 07/29/20 13:04 07/29/20 13:04 General: Alert, In no apparent distress, Oriented x3 HEENT: Atraumatic, PERRLA, Mucous membr. moist/pink, EOMI, Sclerae nonicteric Neck: Supple, JVD not distended Respiratory: Clear to auscultation bilaterally, Normal air movement Cardiovascular: No edema, Regular rate/rhythm, Normal S1 S2 Gastrointestinal: Normal bowel sounds, Soft and benign, Non-distended, No tenderness Musculoskeletal: No swelling, No tenderness Integumentary: No rashes, No erythema Neurological: Normal speech, Normal strength at 5/5 x4 extr, Cranial nerves 3-12 intact Laboratory Data at Discharge: WBC 4.40 K/uL (4.3-10.9) 07/28/20 05:11 Hgb 15.0 g/dL (13.6-17.9) 07/28/20 05:11 Hct 45.0 % (39.6-49.0) 07/28/20 05:11 Plt Count 211 K/uL (152-406) 07/28/20 05:11 PT 12.1 SECONDS (9.5-12.5) 07/24/20 22:49 INR 1.05 07/24/20 22:49 APTT 30.0 SECONDS (24.3-36.9) 07/24/20 22:49 Sodium 142 mmol/L (136-145) 07/28/20 05:11 Potassium 4.3 mmol/L (3.5-5.1) 07/28/20 05:11 BUN 17 mg/dL (7-18) 07/28/20 05:11 Creatinine 1.07 mg/dL (0.55-1.3) 07/28/20 05:11 Glucose 92 mg/dL (74-106) 07/28/20 05:11 Phosphorus 2.4 mg/dL (2.5-4.9) L 07/27/20 04:39 Magnesium 2.0 mg/dL (1.8-2.4) 07/28/20 05:11 Total Bilirubin 0.2 mg/dL (0.2-1.0) 07/28/20 05:11 AST 21 U/L (15-37) 07/28/20 05:11 ALT 65 U/L (12-78) 07/28/20 05:11 Alkaline Phosphatase 65 U/L (45-117) 07/28/20 05:11 Lipase 60 U/L (73-393) L 07/24/20 22:49 Home Medications: Folic Acid 0.8 mcg PO DAILY 05/10/18 Phenytoin Sodium Extended [Dilantin] 300 mg PO BEDTIME 05/10/18 Nicotine [Nicoderm*] 14 mg TD DAILY patch.td24 07/29/20 clonazePAM [Klonopin*] 1 mg PO TID PRN #0 tab 07/29/20 Physician Discharge Instructions: Patient to be transferred to [facility] for further psychiatric evaluation. PROBLEM: (list out Acute Problems for the Current visit) Suicidal ideation GOAL: Clear understanding of disease process continue with treatment. INSTRUCTIONS: Diet: regular Activity: ad nathan DME DME: Date Ordered: Name of Company: [employer] Services Needed: Name of Company: Date or Referral: IMMUNIZATION Influenza Vaccine Indicated: No Influenza Vaccine Given: Date Given: Pneumonia Vaccine Indicated: No Pneumonia Vaccine Given: Date Given: Followup: Unknown,U [Primary Care Provider] - Time spent managing pt's care (in minutes): 36
[2020-07-30] MEDS: NA CHLORIDE 0.9% 1,000 ML IV SCH ×2 (03:08→13:08)
[2020-07-30 03:30] VITALS: O2SAT 99
[2020-07-30] MEDS ORDERED: ENOXAPARIN 40 MG/0.4 ML SQ ONE (07:40)
[2020-07-30] MEDS: ENOXAPARIN 40 MG/0.4 ML SQ SCH (09:09)
[2020-07-30] MEDS: NICOTINE 14 MG/PAT TD SCH (09:09)
[2020-07-30] MEDS: clonazePAM 1 MG TAB PO PRN (14:53)
[2020-07-30] MEDS ORDERED: clonazePAM 1 MG TAB ONE (15:08)
[2020-07-30 16:28] VITALS: BP 112/85; TEMP 98.6
--- NOTE | 2020-07-30 18:24 | P.PN ---
Subjective Date of Service: 07/30/20 Primary Care Provider: Unknown Chief Complaint: Phenytoin toxicity Patient has no complain. He states he feels better. He has been calm today He agrees to inpatient psychiatry placement. Physical Examination - Vital Signs Temperature: 98.6 F Blood Pressure: 112/85 Pulse: 87 Respirations: 19 Pulse Ox (%): 99 - Physical Exam General: Alert, In no apparent distress, Oriented x3 Neck: JVD not distended Respiratory: Clear to auscultation bilaterally, Normal air movement Cardiovascular: No edema, Regular rate/rhythm Gastrointestinal: Soft and benign, Non-distended Musculoskeletal: No swelling Integumentary: No rashes Neurological: Normal speech, Normal strength at 5/5 x4 extr, Cranial nerves 3-12 intact Assessment And Plan - Plan Dilantin level improved to therapeutic level. Continue IV hydration and other supportive measures Ativan p.r.n. for agitation. Continue follow up Resume Dilantin. Patient accepted for inpatient psych placement. Awaiting bed availability at [facility]. Physician Review Additional Text: patient states he doesn't recall discussion yesterday when he stated he was suicidal and wanted to go to inpatient psych facility. More calm this morning. girlfriend came to visit which helped relax him.
[2020-07-30] MEDS ORDERED: PHENYTOIN ER 100 MG CAP PO SCH (21:00)
[2020-07-31] MEDS ORDERED: HOME MED 1 EA UNK (Folic Acid [Folic Acid] 0.8 MG Capsule) PO SCH (09:00)
== END 2020-07-30 18:17 | DRG 917 ==
LOC: ER 22:45 → OBSVTOIN 07-25 02:04 → ERHOLD 07-25 02:04 → 2ND 07-25 02:42 → ERHOLD 07-26 08:56 → INTOOBSV 07-26 11:51 → OBSVTOIN 07-26 11:51
PROVIDERS: ADMIT Emergency Medicine; ATTEND Internal Medicine
DX: T42.0X1A Poisoning by hydantoin derivatives, accidental (unintentional), initial encounter (principal); G92 Toxic encephalopathy; Z91.5 Personal history of self-harm; Z20.822 Contact with and (suspected) exposure to COVID-19
CPT/HCPCS: 36415; 74176; 74177; 80048; 80053; 80076; 80185; 80307; 80320; 80329; 81003; 82947; 83690; 83735; 84100; 84439; 84443; 85025; 85610; 85730; 93005; 96365; 96366; 96375; 99285; G0378; J1650; J2270; J2405; J2550; J3475; J7030; Q2009; Q9967; U0003

== ENCOUNTER 2021-10-07 02:00 | Emergency (ER) | payer OTHER ==
--- OUTSIDE RECORDS SUMMARY | 2021-10-07 02:03 | XMS REPORT | Continuity of Care Document ---
:1995 Author Organization [facility] t Address [address] [place] [address] Care Team Providers Name Role Phone PCP, DOES NOT HAVE A Primary Care Physician Unavailable Rahul MEHTA Attending Clinician ELIGIO GAUTHIER Attending Clinician Unavailable Momo SUAZO Attending Clinician Eligio Gauthier MD Attending Clinician Attending Clinician Unavailable Singer MALIK Attending Clinician ELIGIO GAUTHIER Admitting Clinician Unavailable Eligio Gauthier MD Admitting Clinician Admitting Clinician Unavailable Payers Payer Name Policy Type Policy Number Effective Date Expiration Date S ource Problems Condition Condition Condition Status Onset Resolution Last Treating Co mments Source Name Details Category Date Date Treatment Clinician Date Seizure-li Seizure-li Disease Active U christianne landrum 3-19 ity of activity activity 00:00: [place] [address] [facility] No known No known Disease Unive rs active active ity of problems problems [facility] Allergies, Adverse Reactions, Alerts Allergy Allergy Status Severity Reaction(s) Onset Inactive Treating Comm ents Source Name Type Date Date Clinician NO KNOWN Drug Active Univers ALLERGIE Class ity of S [facility] Social History Social Habit Start Date Stop Date Quantity Comments Source Exposure to Not sure [facility] SARS-CoV-2 [facility] (event) Tobacco use and 2021-08-07 2021-08-07 Current user Univers [facility] exposure 00:00:00 00:00:00 Medical Branch Sex Assigned At [birth year] [facility] [place] 00:00:00 00:00:00 Medical Branch Smoking Status Start Date Stop Date Source Current every day smoker 2021-08-07 00:00:00 Uni versity [facility] Unknown if ever smoked [facility] Medications Ordered Filled Start Stop Current Ordering Indication Dosage Frequency Signature Comments Components Source Medication Medication Date Date Medication? Clinician (SIG) Name Name pantoprazol Yes 40mg 40 mg, Univ ers e 3-20 Oral, ity of (PROTONIX) 14:00: DAILY, [place] EC tablet 00 First dose Medi ángel 40 mg on [facility] 08/08/21 at 0900, Until Discontinu ed, Routine escitalopra Yes 20mg 20 mg, Univ ers m oxalate 3-20 Oral, ity of (LEXAPRO) 14:00: DAILY, [place] tablet 20 00 First dose Medi ángel mg on [facility] 08/08/21 at 0900, Until Discontinu ed, Routine heparin Yes 5000U 5,000 Univers (porcine) 3-20 Units, ity of injection 01:00: [place] 5,000 Units 00 us, Q12H, Med ical First dose Branch on [facility] 08/07/21 at 2000, Until Discontinu ed, Routine topiramate Yes 50mg 50 mg, Unive rs (TOPAMAX) 3-20 Oral, BID, ity of tablet 50 01:00: [place] 00 on [facility] 08/07/21 at Branch 2000, Until Discontinu ed
Facu lty member approving Restricted medication : LASHANDA GAUTHIER phenytoin Yes 200mg 200 mg, Univ ers (DILANTIN) 3-20 Oral, BID, ity of chewable 01:00: First dose Agustin as tablet 200 00 on [facility] Medical mg 08/07/21 at Branch 1999, Until Discontinu ed acetaminoph Yes 650mg 650 mg, Un etelvina en 3-19 Oral, ity of (TYLENOL) 22:54: Q6HPRN, [place] tablet 650 11 Starting Medic al mg on [facility] Branch 08/07/21 at 1754, Until Discontinu ed, Routine, Pain (scale 4-6) docusate Yes 100mg 100 mg, Unive rs (COLACE) 3-19 Oral, ity of capsule 100 22:54: QDAILYPRN, [place] mg 11 Starting Medical on [facility] 08/07/21 at 1754, Until Discontinu ed, Routine, Constipati on acetaminoph 2021- No 1000mg 1,000 mg, Univers en 08-07 Oral, ity of (TYLENOL) 21:30: 20:27 ONCE, [place] tablet [place] :[place] dose, On Medical 1,000 mg [facility] 08/07/21 at 1630, HERBER topiramate 2021- No 50mg Take 50 mg Univers (TOPAMAX 08-07 by mouth 2 ity of ORAL) 19:08: 00:00 (two) [place] 19 :00 times Medical daily. [place] escitalopra 2021- No 20mg Take 20 mg Univers m oxalate 08-07 by mouth ity o f 20 mg 19:08: 00:00 daily. [place] tablet 19 :00 Medical Branch PHENYTOIN 2021- No 200mg Take 200 Un etelvina ORAL 08-07 mg by ity of 19:08: 00:00 mouth 2 [place] 19 :00 (two) Medical times [place] daily. fosphenytoi 2021- No 1500mg{ 1,500 mg Univers n (CEREBYX) 08-07 phenyto PE, IV it y of 1,500 mg PE 18:45[facility] [place] in NaCl 00 :00 valent} ONCE, 1 Medica l 0.9% (NS) dose, On [place] [facility], Administer over 30 Minutes, 100 mL escitalopra 2021- Yes [id number] 20mg Take 1 Univers m oxalate 08-07 tablet by ity of 20 mg 00:00: 04:59 mouth [place] tablet 00 :00 daily for Medical 60 days. [place] topiramate 2021- Yes [id number] 50mg Take 1 Univers (TOPAMAX) 08-07 tablet by ity of 50 mg 00:00: 04:59 mouth 2 [place] tablet 00 :00 (two) Medical times [place] daily for 60 days. phenytoin 2021- Yes [id number] 100mg Take 2 Univers 50 mg 3-19 05-19 tablets by ity of chewable 00:00: 04:59 mouth 2 [place] tablet 00 :00 (two) Medical times [place] daily for 60 days. escitalopra 2021- Yes [id number] 20mg Take 1 Univers m oxalate 3-19 05-19 tablet by ity of 20 mg 00:00: 04:59 mouth [place] tablet 00 :00 daily for Medical 60 days. Branch topiramate 2021- Yes [id number] 50mg Take 1 Univers (TOPAMAX) 3-19 05-19 tablet by ity of 50 mg 00:00: 04:59 mouth 2 [place] tablet 00 :00 (two) Medical times [place] daily for 60 days. phenytoin 2021- Yes [id number] 100mg Take 2 Univers 50 mg 3-19 05-19 tablets by ity of chewable 00:00: 04:59 mouth 2 [place] tablet 00 :00 (two) [facility] daily for 60 days. iohexol 2020- No 120mL 120 mL, Unive rs (OMNIPAQUE 07-22 Intravenou it y of 350 20:45: 20:34 s, ONCE, 1 [place] BULK-150 00 :00 dose, Wed Medica l mL) 07/22/20 at Branch injection 1445, 120 mL Routine levETIRAcet 2020- No 1000mg 1,000 mg, Univers am (KEPPRA) 07-22 IV ity of in NACL 20:15: 19:45 [place], [place] (ISO-OS) 00 :00 ONCE, 1 Medical 1,000 dose, Wed Branch mg/100 mL 07/22/20 at RTU 1415, 100 mL topiramate Yes 50mg Take 50 mg U nivers (TOPAMAX 4-19 by mouth 2 ity o f ORAL) 17:19: (two) [place] 33 times Medical daily. Branch escitalopra Yes 20mg Take 20 mg Univers m oxalate 4-19 by mouth ity of 20 mg 17:19: daily. [place] tablet 33 Medical Branch PHENYTOIN Yes 200mg Take 200 Uni vers ORAL 4-19 mg by ity of 17:19: mouth 2 [place] 33 (two) Medical times Branch daily. Vital Signs Vital Name Observation Time Observation Value Comments Source Systolic blood 2021-08-07 22:01:00 122 mm[Hg] Univer sity of pressure [place] Medical [facility] Diastolic blood 2021-08-07 22:01:00 74 mm[Hg] Unive rsity of pressure [place] Medical [facility] Heart rate 2021-08-07 22:01:00 68 /min [facility] [place] [facility] Oxygen saturation in 2021-08-07 22:01:00 100 /min University of Arterial blood by [place] Abacast ángel Pulse oximetry Branch Respiratory rate 2021-08-07 20:10:00 16 /min Univ [facility] [place] [facility] Body temperature 2021-08-07 17:14:00 36.28 Patito [facility] [place] [facility] Body weight 2021-08-07 17:14:00 81.647 kg [facility] [place] [facility] Systolic blood 2020-07-22 22:05:00 112 mm[Hg] Univer sity of pressure [place] Medical [facility] Diastolic blood 2020-07-22 22:05:00 70 mm[Hg] Unive rsity of pressure [place] Medical [facility] Heart rate 2020-07-22 22:05:00 89 /min [facility] [place] [facility] Respiratory rate 2020-07-22 22:05:00 18 /min [facility] [place] [facility] Oxygen saturation in 2020-07-22 22:05:00 99 /min University of Arterial blood by [place] Abac[place] ángel Pulse oximetry Branch Body temperature 2020-07-22 19:16:00 36.89 Patito [facility] [place] [facility] Body weight 2020-07-22 19:14:00 81.647 kg [facility] [place] [facility] Systolic blood 2020-07-22 22:05:00 112 mm[Hg] Univer sity of pressure [place] [facility] Diastolic blood 2020-07-22 22:05:00 70 mm[Hg] Unive rsity of pressure [place] Medical [facility] Heart rate 2020-07-22 22:05:00 89 /min [facility] [place] [facility] Respiratory rate 2020-07-22 22:05:00 18 /min [facility] [place] [facility] Oxygen saturation in 2020-07-22 22:05:00 99 /min University of Arterial blood by [place] Medi ángel Pulse oximetry Branch Body temperature 2020-07-22 19:16:00 36.89 Patito [facility] Body weight 2020-07-22 19:14:00 81.647 kg [facility] Procedures Procedure Date / Time Performed Performing Clinician Estefania DANGELO-19 (ID NOW 2021-08-07 18:39:00 Momo Rafael [facility] RAPID TESTING) Medical [place] CT HEAD WO CONTRAST 2021-08-07 18:09:21 Rafael Barr [facility] LACTIC ACID WHOLE 2021-08-07 17:41:00 Momo [facility] COMP. METABOLIC PANEL 2021-08-07 17:40:00 Rafael Barr [facility] ([id number]) [facility] CBC WITH DIFF 2021-08-07 17:40:00 Mom[address] [facility] CT ABDOMEN PELVIS W 2020-07-22 20:38:41 Singer [facility] CONTRAST [facility] Branch LACTIC ACID WHOLE 2020-07-22 19:30:00 Singer [facility] BLOOD [facility] Branch LIPASE 2020-07-22 19:29:[facility] 2020-07-22 19:29:00 [facility] ([id number]) [facility] CBC WITH DIFF 2020-07-22 19:29:00 [place] [facility] Encounters Start End Encounter Admission Attending Care Care Encounter Source Date/Time Date/Time Type Type Clinicians Facility Department ID 2021-08-09 2021-08-09 Transition LIBBY Kay [id number] Univers 00:00:00 00:00:00 of Care Adrienne HSU [id number] [place] [id number] [facility] 403 Branch 2021-08-07 2021-08-07 Inpatient X DISHA TNKIMBERLY IVY [id number] Univers 12:50:00 19:30:00 LASHANDA hernandez [facility] 2021-08-07 2021-08-07 [facility] Rafael Barr [id number] [facility] 12:50:00 19:30:00 Encounter Lashanda Gauthier [id number] .[facility] 4[facility]2.7[facility]2.686 [facility] [id number] [facility] 092 Branch 2020-07-22 2020-07-22 Emergency X MOELLER, [facility] ERT [id number] Univers 13:20:00 17:03:00 MINDY barkleydimitri [facility] 2020-07-22 2020-07-22 [facility] [id number] Univers 13:20:00 17:03:00 Mindy Leoston [id number] i [facility] 4.2.7.2.686 [facility] [id number] [facility] 084 Branch 2020-07-22 2020-07-22 Emergency [facility] [id number] 13:20:00 17:03:00 Mindy Jose [id number] [place] 4.2.7.2.686 [place] [id number] Results Test Description Test Time Test Comments Results Result Comments Source COMP. METABOLIC PANEL ([id number]) 2021-08-07 18:09:28 Test Item Value Reference Range Interpretation Comme nts NA (test code = 8224800722) 136 mmol/L 135-145 K (test code = 6427575578) 4.1 mmol/L 3.5-5.0 CL (test code = 3167360293) 101 mmol/L 98-108 CO2 TOTAL (test code = 2842248007) 28 mmol/L 23-31 AGAP (test code = 0717616110) 2-16 BUN (test code = 9892590418) 13 mg/dL 7-23 GLUCOSE (test code = 7572027018) 105 mg/dL 70-110 CREATININE (test code = 0.90 mg/dL 0.60-1.25 9671175661) TOTAL BILI (test code = 0.9 mg/dL 0.1-1.5 2554198521) CALCIUM (test code = 5033147189) 8.1 mg/dL 8.6-10.6 L T PROTEIN (test code = 8428832519) 6.4 g/dL 6.3-8.2 ALBUMIN (test code = 8531174829) 3.8 g/dL 3.5-5.0 ALK PHOS (test code = 8093178050) 42 U/L 34-122 ALTv (test code = 1742-6) 20 U/L 5-50 AST(SGOT) (test code = 8679108673) 23 U/L 13-40 eGFR (test code = 7840371944) mL/min/1.73m2 MARKEL (test code = MARKEL) Association of Glomerular Filtration Rate (GFR) and Staging of Kidney Disease* + +-------- + ------+| GFR (mL/min/1.73 m2) ?| With Kidney Damage ?| ?Without Kidney Damage+ +-- + +| ?>90 ?| ?Stage one ?| ? Normal ?+ +------- + -------+| ?60-89 ?| ?Stage two ?| ? Decreased GFR ? + +-------- + ------+| ?30-59 ?| ?Stage three ?| ? Stage three ? + +-------- + ------+| ?15-29 ?| ?Stage four ? | ? Stage four ?+ +------- + -------+| ?<15 (or dialysis) ? ?| ?Stage five ? | ? Stage five ?+ +------- + -------+ *Each stage assumes the associated GFR level has been in effect for at least three months. ?Stages 1 to 5, with or without kidney disease, indicate chronic kidney disease. Notes: Determination of stages one and two (with eGFR >59mL/min/1.73 m2) requires estimation of kidney damage for at least three months as defined by structural or functional abnormalities of the kidney, manifested by either:Pathological abnormalities or Markers of kidney damage (including abnormalities in the composition of the blood or urine or abnormalities in imaging tests). Lab Interpretation (test code = Abnormal 86668-8) [facility] WITH [id number] 17:49:49 Test Item Value Reference Range Interpretation Comments WBC (test code = See_Comment [Automated 0690-2) message] The sy stem which generated this result transmitted reference range : 4.20 - 10.70 10*3/?L. The reference range was not used to interpret this result as normal/abnormal . RBC (test code = See_Comment [Automated 789-8) message] The sy stem which generated this result transmitted reference range : 4.26 - 5.52 10*6/?L. The reference range was not used to interpret this result as normal/abnormal . HGB (test code = 15.0 g/dL 12.2-16.4 718-7) HCT (test code = 45.4 % 38.4-49.3 4544-3) MCV (test code = 93.4 fL 81.7-95.6 787-2) MCH (test code = 30.9 pg 26.1-32.7 785-6) MCHC (test code = 33.0 g/dL 31.2-35.0 786-4) RDW-SD (test code = 44.9 fL 38.5-51.6 38946-8) RDW-CV (test code = 13.1 % 12.1-15.4 788-0) PLT (test code = See_Comment [Automated 777-3) message] The sy stem which generated this result transmitted reference range : 150 - 328 10*3/ ?L. The reference r mark anthony was not used to interpret this result as normal/abnormal . MPV (test code = 9.5 fL 9.8-13.0 L 95866-4) NRBC/100 WBC (test See_Comment [Automat ed code = 9269550824) message] The system which generated this result transmitted reference range : 0.0 - 10.0 /100 WBCs. The refer ence range was not u sed to interpret th is result as normal/abnormal . NRBC x10^3 (test code <0.01 See_Comment [Auto mated = 2609790536) message] The s ystem which generated this result transmitted reference range : 10*3/?L. The reference range was not used to interpret this result as normal/abnormal . GRAN MAT (NEUT) % 58.7 % (test code = 770-8) IMM GRAN % (test code 0.20 % = 7291802807) LYMPH % (test code = 28.1 % 736-9) MONO % (test code = 8.9 % 5905-5) EOS % (test code = 3.5 % 713-8) BASO % (test code = 0.6 % 706-2) GRAN MAT x10^3(ANC) 3.15 10*3/uL 1.99-6.95 (test code = 7370873359) IMM GRAN x10^3 (test <0.03 0.00-0.06 code = 8451250221) LYMPH x10^3 (test code 1.51 10*3/uL 1.09-3.23 = 731-0) MONO x10^3 (test code 0.48 10*3/uL 0.36-1.02 = 742-7) EOS x10^3 (test code = 0.19 10*3/uL 0.06-0.53 711-2) BASO x10^3 (test code 0.03 10*3/uL 0.01-0.09 = 704-7) Lab Interpretation Abnormal (test code = 48231-3) [facility] [id number] 20:47:49CT Abdomen and Pelvis with intravenous contrast. CLINICAL HISTORY: Acute generalized abdominal pain.DOSE: Up-to-date CT equipment and radiation dose reduction techniques wereemployed. CTDIvol: 8.06 mGy. DLP: 439 mGy-cm. TECHNIQUE : Contiguous axial imaging from the level of the lung basesthrough the pubic symphysis were performed after the uncomplicatedadministration of Omnipaque contrast material.?Coronal and sagittalreconstructions were obtained. Auto mA and/or iterative reconstruction wereusedto reduce radiation dose. FINDINGS: Study is compromised due to beam hardening artifact fromsuperimposed patient's upper extremities. Lower lungs: Clear. No pleural effusion or pericardial effusion. Nodefinite evidence of hiatal hernia. Liver, Gallbladder and Spleen: Liver is 15 cm in length and left lobe ofthe liver showed densely enhancing 2.6 cm mass (segment #2).Spleen is approximately 11 x 3.5 cm. No calcified gallstones. Biliary ductsand the pancreatic duct appear of normal size. Peritoneum: ?No free air or free fluid. No lymphadenopathy. Pancreas and Adrenals: ?Unremarkable pancreas and adrenal glands. Kidneys and Ureters: ?No visible calculi in the renal collecting systems. No hydroureter or hydronephrosis. No enhancing kidney lesions visualized. Vessels: Normal. Retroperitoneum: No abnormal fluid or lymphadenopathy. Bowel: Normal appendix. Mild constipation. Bladder and Reproductive Organs: Unremarkable unopacified moderatelydistended urinary bladder. Bones: No acute findings. Soft tissues: Unremarkable. CONCLUSION:1. No acute intra-abdominal or pelvic abnormalities detected.2. Constipation. Normal appendix.3. Densely enhancing 2.6 cm size lesion in left lobe of the liver, ofuncertain etiology. Lesion may be further evaluated by triple phasenonemergent outpatient CT study. [facility], Radiant Results Inft User - 07/22/2020 2:48 PM CSTCT Abdomen and Pelvis with intravenous contrast.CLINICAL HISTORY: Acute generalized abdominal pain.DOSE: Up-to-date CT equipment and radiation dose reduction techniques wereemployed. CTDIvol: 8.06 mGy. DLP: 439 mGy-cm.TECHNIQUE : Contiguous axial imaging from the level of the lung basesthrough the pubic symphysis were performed after the uncomplicatedadministration of Omnipaque contrast material. Coronal and sagittalreconstructions were obtained. Auto mA and/or iterative reconstruction wereused to reduce radiation dose.FINDINGS: Study is compromised due to beam hardening artifact fromsuperimposed patient's upper extremities.Lower lungs: Clear. No pleural effusion or pericardial effusion. Nodefinite evidence of hiatal hernia.Liver, Gallbladder and Spleen: Liver is 15 cm in length and left lobe ofthe liver showed densely enhancing 2.6 cm mass (segment #2).Spleen is approximately 11 x 3.5 cm. No calcified gallstones. Biliary ductsand the pancreatic duct appear of normal size.Peritoneum: No free air or free fluid. No lymphadenopathy.Pancreas and Adrenals: Unremarkable pancreas and adrenal glands.Kidneys and Ureters: No visible calculi in therenal collecting systems. No hydroureter or hydronephrosis. No enhancing kidney lesions visualized. V essels: Normal.Retroperitoneum: No abnormal fluid or lymphadenopathy.Bowel: Normal appendix. Mild constipation.Bladder and Reproductive Organs: Unremarkable unopacified moderatelydistended urinary bladder.Bones: No acute findings.Soft tissues: Unremarkable.CONCLUSION:1. No acute intra-abdominal or pelvic abnormalities detected.2. Constipation. Normal appendix.3. Densely enhancing 2.6 cm size lesion in left lobe of the liver, ofuncertain etiology. Lesion may be further evaluated by triple phasenonemergent outpatient CT study.[facility] WITH [id number] 20:44:00 Test Item Value Reference Range Interpretation Comments WBC (test code = See_Comment [Automated 6690-2) message] The sy stem which generated this result transmitted reference range : 4.20 - 10.70 10*3/?L. The reference range was not used to interpret this result as normal/abnormal . RBC (test code = See_Comment [Automated 789-8) message] The sy stem which generated this result transmitted reference range : 4.26 - 5.52 10*6/?L. The reference range was not used to interpret this result as normal/abnormal . HGB (test code = 15.5 g/dL 12.2-16.4 718-7) HCT (test code = 46.0 % 38.4-49.3 4544-3) MCV (test code = 90.0 fL 81.7-95.6 787-2) MCH (test code = 30.3 pg 26.1-32.7 785-6) MCHC (test code = 33.7 g/dL 31.2-35 786-4) RDW-SD (test code = 39.6 fL 38.5-51.6 46434-9) RDW-CV (test code = 12.0 % 12.1-15.4 L 788-0) PLT (test code = See_Comment [Automated 777-3) message] The sy stem which generated this result transmitted reference range : 150 - 328 10*3/ ?L. The reference r mark anthony was not used to interpret this result as normal/abnormal . MPV (test code = 9.6 fL 9.8-13 L 56445-6) NRBC/100 WBC (test See_Comment [Automat ed code = 1084241685) message] The system which generated this result transmitted reference range : 0.0 - 10.0 /100 WBCs. The refer ence range was not u sed to interpret th is result as normal/abnormal . NRBC x10^3 (test code <0.01 See_Comment [Auto mated = 9530591715) message] The s ystem which generated this result transmitted reference range : 10*3/?L. The reference range was not used to interpret this result as normal/abnormal . GRAN MAT (NEUT) % 31.9 % (test code = 770-8) IMM GRAN % (test code 0.00 % = 2236271057) LYMPH % (test code = 51.5 % 736-9) MONO % (test code = 12.0 % 5905-5) EOS % (test code = 3.5 % 713-8) BASO % (test code = 1.1 % 706-2) GRAN MAT x10^3(ANC) 1.47 10*3/uL 1.99-6.95 L (test code = 4801910695) IMM GRAN x10^3 (test <0.03 0-0.06 code = 7324583940) LYMPH x10^3 (test code 2.37 10*3/uL 1.09-3.23 = 731-0) MONO x10^3 (test code 0.55 10*3/uL 0.36-1.02 = 742-7) EOS x10^3 (test code = 0.16 10*3/uL 0.06-0.53 711-2) BASO x10^3 (test code 0.05 10*3/uL 0.01-0.09 = 704-7) Lab Interpretation Abnormal (test code = 72234-9) [facility]. METABOLIC PANEL ([id number])2020-07-22 20:08:00 Test Item Value Reference Range Interpretation Comments NA (test code = 138 mmol/L 135-145 5946355226) K (test code = 3.3 mmol/L 3.5-5 L 8367204745) CL (test code = 103 mmol/L 98-108 3347153399) CO2 TOTAL (test code = 27 mmol/L 23-31 5499744119) AGAP (test code = 2-16 0198394054) BUN (test code = 12 mg/dL 7-23 6774564775) GLUCOSE (test code = 118 mg/dL 70-110 H 5946187241) CREATININE (test code = 1.02 mg/dL 0.6-1.25 7300861144) TOTAL BILI (test code = 0.6 mg/dL 0.1-1.7 2253339064) CALCIUM (test code = 8.5 mg/dL 8.6-10.6 L 4794419414) T PROTEIN (test code = 6.7 g/dL 6.3-8.2 7975797070) ALBUMIN (test code = 4.2 g/dL 3.5-5 4977284681) ALK PHOS (test code = 67 U/L 34-122 6394126472) ALTv (test code = 50 U/L 5-50 1742-6) AST(SGOT) (test code = 30 U/L 13-40 3413486335) eGFR Calculation mL/min/1.73m2 (Non-) (test code = 7691945873) eGFR Calculation mL/min/1.73m2 () (test code = 8336871508) MARKEL (test code = MARKEL) Association of Glomerular Filtration Rate (GFR) and Staging of Kidney Disease* + --+ --+ ------+| GFR (mL/min/1.73 m2) ?| With Kidney Damage ?| ?Without Kidney Damage+ --------+ --------+ +| ?>90 ?| ?Stage one ?| ? Normal ?+ ---+ ---+ -------+| ?60-89 ?| ?Stage two ?| ? Decreased GFR ? + --+ --+ ------+| ?30-59 ?| ?Stage three ?| ? Stage three ? + --+ --+ ------+| ?15-29 ?| ?Stage four ? | ? Stage four ?+ ---+ ---+ -------+| ?<15 (or dialysis) ? ?| ?Stage five ? | ? Stage five ?+ ---+ ---+ -------+ *Each stage assumes the associated GFR level has been in effect for at least three months. ?Stages 1 to 5, with or without kidney disease, indicate chronic kidney disease. Notes: Determination of stages one and two (with eGFR >59mL/min/1.73 m2) requires estimation of kidney damage for at least three months as defined by structural or functional abnormalities of the kidney, manifested by either:Pathological abnormalities or Markers of kidney damage (including abnormalities in the composition of the blood or urine or abnormalities in imaging tests). Lab Interpretation Abnormal (test code = 67419-8) [facility]00 Test Item Value Reference Range Interpretation Comments LIPASE (test code = 1580478888) 34 U/L 0-220 Lab Interpretation (test code = Normal 14794-1) [facility] Whole [id number] 19:37:00 Test Item Value Reference Range Interpretation Comments LACTIC ACID (test code = 2.56 mmol/L 0.5-2.2 H 6569633700) Lab Interpretation (test code = Abnormal 18649-6) [facility]"
--- NOTE | 2021-10-07 03:55 | ER ---
Nurse's Notes [facility] Name: Kirk Cota Age: 26 yrs Sex: Male : 1995 Arrival Date: 10/07/2021 Time: 02:03 Bed 11 Private MD: Diagnosis: Headache Presentation: 10/07 02:07 Chief complaint: Patient states: I am having a sharp pain in the back of my head. I was jb4 recently in the hospital and they found something that I had to be sent to [facility]. Coronavirus screen: At this time, the client does not indicate any symptoms associated with coronavirus-19. Ebola Screen: No symptoms or risks identified at this time. Initial Sepsis Screen: Does the patient meet any 2 criteria? No. Patient's initial sepsis screen is negative. Does the patient have a suspected source of infection? No. Patient's initial sepsis screen is negative. Risk Assessment: Do you want to hurt yourself or someone else? Patient reports no desire to harm self or others. Onset of symptoms was July 20, 2013. Transition of care: patient was not received from another setting of care. 02:07 Method Of Arrival: Ambulatory jb4 02:07 Acuity: MIRTA 4 jb4 Historical: - Allergies: 02:11 No Known Allergies; jb4 - PMHx: 02:11 Bipolar disorder; Seizures; jb4 - PSHx: 02:11 None; jb4 - Immunization history:: Adult Immunizations not up to date. - Social history:: Smoking status: Patient reports the use of cigarette tobacco products, smokes one-half pack cigarettes per day, Patient uses street drugs, marijuana, Methamphetamine (Meth) Patient/guardian denies using alcohol. - Family history:: not pertinent. - Hospitalizations: : No recent hospitalization is reported. Screenin:25 Abuse screen: Denies threats or abuse. Nutritional screening: No deficits noted. jb4 Tuberculosis screening: No symptoms or risk factors identified. Fall Risk None identified. Assessment: 03:25 General: Appears in no apparent distress. comfortable, Behavior is cooperative, jb4 anxious. Pain: Complains of pain in occipital area Pain does not radiate. Neuro: [place] Agitation-Sedation Scale (RASS): 0 - Alert and Calm Level of Consciousness is awake, alert, obeys commands, Oriented to person, place, time, situation. Cardiovascular: Patient's skin is warm and dry. Respiratory: Airway is patent Respiratory effort is even, unlabored, Respiratory pattern is regular, symmetrical. GI: No signs and/or symptoms were reported involving the gastrointestinal system. : No signs and/or symptoms were reported regarding the genitourinary system. EENT: No signs and/or symptoms were reported regarding the EENT system. Derm: Skin is intact, Skin is. Musculoskeletal: Circulation, motion, and sensation intact. Range of motion: intact in all extremities. Vital Signs: 02:07 BP 142 / 92; Pulse 95; Resp 16; Temp 98.3(TE); Pulse Ox 100% on R/A; Weight 74.84 kg jb4 (R); Height 6 ft. 1 in. (185.42 cm) (R); Pain 7/10; 02:07 Body Mass Index 21.77 (74.84 kg, 185.42 cm) jb4 [place] Coma Score: 03:53 Eye Response: spontaneous(4). Verbal Response: oriented(5). Motor Response: obeys rn commands(6). Total: 15. ED Course: 02:03 Patient arrived in ED. bp1 02:03 Roderick Carrillo MD is Attending Physician. rn 02:10 Triage completed. jb4 02:11 Arm band placed on right wrist. jb4 03:25 Patient has correct armband on for positive identification. Bed in low position. Call jb4 light in reach. Side rails up X 1. 03:25 No provider procedures requiring assistance completed. Patient did not have IV access jb4 during this emergency room visit. 03:30 Head Brain Wo Cont In Process Unspecified. EDMS Administered Medications: No medications were administered Medication: 03:25 VIS not applicable for this client. jb4 Outcome: 03:54 Discharge ordered by . rn 04:00 Discharged to home ambulatory. jb4 04:00 Condition: stable 04:00 Discharge instructions given to patient, Instructed on discharge instructions, follow up and referral plans. Demonstrated understanding of instructions, follow-up care. 04:01 Patient left the ED. jb4 Signatures: Dispatcher [employer] EDMS Roderick Carrillo MD MD rn Bryson, James, RN RN jb4 Rochelle Casas bp1
--- NOTE | 2021-10-07 03:56 | EDPHYS ---
Physician Documentation [facility] Name: Kirk Cota Age: 26 yrs Sex: Male : 1995 Arrival Date: 10/07/2021 Time: 02:03 Bed 11 Private MD: ED Physician Roderick Carrillo HPI: 10/07 02:11 This 26 yrs old Male presents to ER via Ambulatory with complaints of headache. rn 02:11 The patient complains of pain to the left side of the back of head and right side of rn the back of head. The patient describes the headache as aching. Onset: The symptoms/episode began/occurred 2 month(s) ago. Associated signs and symptoms: Pertinent negatives: altered mental status, fever, neck stiffness, rash, vision changes, vision loss, vomiting, weakness, vertigo. Severity of symptoms: At its worst the pain was moderate, in the emergency department the pain is unchanged. Headache History: The patient has had previous headaches and this one is similar to previous episodes. The symptoms are alleviated by nothing. the symptoms are aggravated by nothing. The patient has experienced similar episodes in the past. The patient has not recently seen a physician. Pt reports here for MRI of his brain. States headache for months, got a CT scan and told needed MRI. Has paperwork from July 2021 that recommends MRI brain. No focal neuro complaints. No vomiting. No vision changes. . Historical: - Allergies: 02:11 No Known Allergies; jb4 - PMHx: 02:11 Bipolar disorder; Seizures; jb4 - PSHx: 02:11 None; jb4 - Immunization history:: Adult Immunizations not up to date. - Social history:: Smoking status: Patient reports the use of cigarette tobacco products, smokes one-half pack cigarettes per day, Patient uses street drugs, marijuana, Methamphetamine (Meth) Patient/guardian denies using alcohol. - Family history:: not pertinent. - Hospitalizations: : No recent hospitalization is reported. ROS: 02:11 Constitutional: Negative for fever, chills, and weight loss, Eyes: Negative for injury, rn pain, redness, and discharge, Neck: Negative for injury, pain, and swelling, Cardiovascular: Negative for chest pain, palpitations, and edema, Respiratory: Negative for shortness of breath, cough, wheezing, and pleuritic chest pain, Abdomen/GI: Negative for abdominal pain, nausea, vomiting, diarrhea, and constipation, Back: Negative for injury and pain, : Negative for injury, bleeding, discharge, and swelling, MS/Extremity: Negative for injury and deformity, Skin: Negative for injury, rash, and discoloration, Neuro: Negative for weakness, numbness, tingling, and seizure. Exam: 02:11 Constitutional: This is a well developed, well nourished patient who is awake, alert, rn and in no acute distress. Head/Face: Normocephalic, atraumatic. Eyes: Pupils equal round and reactive to light, extra-ocular motions intact. Lids and lashes normal. Conjunctiva and sclera are non-icteric and not injected. Cornea within normal limits. Periorbital areas with no swelling, redness, or edema. Neck: Trachea midline, no thyromegaly or masses palpated, and no cervical lymphadenopathy. Supple, full range of motion without nuchal rigidity, or vertebral point tenderness. No Meningismus. Cardiovascular: Regular rate and rhythm. No pulse deficits. Skin: Warm, dry with normal turgor. Normal color with no rashes, no lesions, and no evidence of cellulitis. MS/ Extremity: Pulses equal, no cyanosis. Neurovascular intact. Full, normal range of motion. Equal circumference. Neuro: Awake and alert, GCS 15, oriented to person, place, time, and situation. Cranial nerves II-XII grossly intact. Motor strength 5/5 in all extremities. Sensory grossly intact. Cerebellar exam normal. Normal gait. Vital Signs: 02:07 BP 142 / 92; Pulse 95; Resp 16; Temp 98.3(TE); Pulse Ox 100% on R/A; Weight 74.84 kg jb4 (R); Height 6 ft. 1 in. (185.42 cm) (R); Pain 7/10; 02:07 Body Mass Index 21.77 (74.84 kg, 185.42 cm) jb4 [place] Coma Score: 03:53 Eye Response: spontaneous(4). Verbal Response: oriented(5). Motor Response: obeys rn commands(6). Total: 15. MDM: 02:03 Patient medically screened. rn 03:53 Differential diagnosis: hypertensive headache, intracerebral hemorrhage, migraine, rn neoplasm, tension headache, trigeminal neuralgia, vasomotor headache. Data reviewed: vital signs, nurses notes, radiologic studies, CT scan, and as a result, I will discharge patient. Counseling: I had a detailed discussion with the patient and/or guardian regarding: the historical points, exam findings, and any diagnostic results supporting the discharge/admit diagnosis, radiology results, the need for outpatient follow up, to return to the emergency department if symptoms worsen or persist or if there are any questions or concerns that arise at home. Special discussion: I discussed with the patient/guardian in detail that at this point there is no indication for admission to the hospital. It is understood, however, that if the symptoms persist or worsen the patient needs to return immediately for re-evaluation. Further emergent ED testing is not indicated at this point in time. I discussed with the patient/guardian in detail the need to arrange with the PCP or specialist further outpatient testing, MRI, Based on the history and exam findings, there is no indication for further emergent testing or inpatient evaluation. I discussed with the patient/guardian the need to see the neurologist for further evaluation of the symptoms. ED course: No acute abnormality on CT head, will dc home with instructions to f/u and obtain MRI as recommended 2 months ago.. 10/07 02:57 Order name: CT Head Brain wo Cont rn 10/07 03:01 Order name: Head Brain Wo Cont EDMS Administered Medications: No medications were administered Disposition Summary: 10/07/21 03:54 Discharge Ordered Location: Home rn Problem: an ongoing problem rn Symptoms: have improved rn Condition: Stable rn Diagnosis - Headache rn Followup: rn - With: Private Physician - When: As needed - Reason: Recheck today's complaints, Re-evaluation by your physician Discharge Instructions: - Discharge Summary Sheet rn - General Headache Without Cause rn Forms: - Medication Reconciliation Form rn - Thank You Letter rn - Antibiotic rn burn - Prescription Opioid Use rn Signatures: Dispatcher [employer] EDRoderick Todd MD MD rn Bryson, James, RN RN jb4
[2021-10-07 04:08] VITALS: BP 142/92; TEMP 98.3; O2SAT 100
--- NOTE | 2021-10-07 11:29 | RAD REPORT ---
EXAM DESCRIPTION: CT - Head Brain Wo Cont - 10/07/2021 4:23 am CLINICAL HISTORY: The patient is 26 years old and is Male; Headache, chronic, no new features TECHNIQUE: Axial computed tomography images of the head/brain without intravenous contrast. Sagitt al and coronal reformatted images were created and reviewed. This CT exam was performed using one o r more of the following dose reduction techniques: automated exposure control, adjustment of the mA and/or kV according to patient size, and/or use of iterative reconstruction technique. COMPARISON: No relevant prior studies available. FINDINGS: Brain: Unremarkable. No hemorrhage. No significant white matter disease. No edema. Ventricles: Unremarkable. No ventriculomegaly. Bones/joints: Unremarkable. No acute fracture. Soft tissues: Unremarkable. Sinuses: Unremarkable as visualized. Mastoid air cells: Unremarkable as visualized. No mastoid effusion. IMPRESSION: No acute intracranial abnormality. Electronically signed by: Colten Fierro MD 10/07/2021 3:38 AM CDT Due to temporary technical issues with the PACS/Fluency reporting system, reports are being signed by the in house radiologist without review as a courtesy to ensure prompt reporting. The interpreting r adiologist is fully responsible for the content of the report.
== END 2021-10-07 04:01 | disposition home or self-care (01) ==
LOC: ER 02:00
DX: R51.9 Headache, unspecified (principal); F31.9 Bipolar disorder, unspecified; F17.210 Nicotine dependence, cigarettes, uncomplicated
CPT/HCPCS: 70450; 99283

== ENCOUNTER 2023-11-15 20:29 | Emergency (ER) | payer SELFPAY ==
--- OUTSIDE RECORDS SUMMARY | 2023-11-15 20:34 | XMS REPORT | Continuity of Care Document ---
Author Name Unknown Address [address] [facility] [address] [place] [address] [facility] Address [address] [place] [place] [address] Care Team Providers Care Supervisor Car Installations Name Role Phone PCP, PATIENT DOES NOT HAVE A Primary Care Physic kin Unavailable Adrienne Kay LVN Attending Clinician [phone] LASHANDA GAUTHIER Attending Clinician UnavailRafael Cabrera MD Attending Clinician [phone] Lashanda Gauthier MD Attending Clinician + [phone] Mindy Moeller DO Attending Clinician [phone] MINDY MOELLER Attending Clinician Unavailable LASHANDA GAUTHIER Admitting Clinician UnavailLashanda hines Rai, MD Admitting Clinician + [phone] MINDY MOELLER Admitting Clinician Unavailable Payers Payer Name Policy Type Policy Number Effective Date Expirati on Date Source Problems Condition Name Condition Details Condition Category Status Onset Date Resolution Date Last Treatment Date Treating Clinician Comments Source Seizure-li ke activity Seizure-li ke activity Disease Active 08-07 00:00: 00 [facility] No known active problems No known active problems Disease [facility] Allergies, Adverse Reactions, Alerts Allergy Name Allergy Type Status Severity Reaction(s) Onset Date Inactive Date Treating Clinician Comments Source No Known Drug Allergie s DA Active U 07-30 00:00: 00 [facility] NO KNOWN ALLERGIE S Drug Class Active [facility] Social History Social Habit Start Date Stop Date Quantity Comments Source Exposure to SARS-CoV-2 (event) Not sure [facility] Tobacco use and exposure 2021-08-07 00:00:00 2021-08-07 00:00:00 Current user [facility] Sex Assigned At 1995 00:00:00 1995 00:00:00 [facility] Smoking Status Start Date Stop Date Source Current every day smoker 2021-08-07 00:00:00 [facility] Unknown if ever smoked Unive [facility] Medications Ordered Medication Name Filled Medication Name Start Date Stop Date Current Medication? Ordering Clinician Indication Dosage Frequency Signature (SIG) Comments Components Source pantoprazol e (PROTONIX) EC tablet 40 mg 08-08 14:00: 00 Yes 40mg 40 mg, Oral, DAILY, First dose on 08/08/21 at 0900, Until Discontinu ed, Routine [facility] escitalopra m oxalate (LEXAPRO) tablet 20 mg 08-08 14:00: 00 Yes 20mg 20 mg, Oral, DAILY, First dose on 08/08/21 at 0900, Until Discontinu ed, Routine [facility] heparin (porcine) injection 5,000 Units 08-08 01:00: 00 Yes 5000U 5,000 Units, Subcutaneo us, Q12H, First dose on 08/07/21 at 1999, Until Discontinu ed, Routine [facility] topiramate (TOPAMAX) tablet 50 mg 08-08 01:00: 00 Yes 50mg 50 mg, Oral, BID, First dose on 08/07/21 at 1999, Until Discontinu ed
Facu lty member approving Restricted medication : LASHANDA GAUTHIER [facility] phenytoin (DILANTIN) chewable tablet 200 mg 08-08 01:00: 00 Yes 200mg 200 mg, Oral, BID, First dose on 08/07/21 at 2000, Until Discontinu ed [facility] acetaminoph en (TYLENOL) tablet 650 mg 08-07 22:54: 11 Yes 650mg 650 mg, Oral, Q6HPRN, Starting on 08/07/21 at 1754, Until Discontinu ed, Routine, Pain (scale 4-6) [facility] docusate (COLACE) capsule 100 mg 08-07 22:54: 11 Yes 100mg 100 mg, Oral, QDAILYPRN, Starting on 08/07/21 at 1754, Until Discontinu ed, Routine, Constipati on [facility] acetaminoph en (TYLENOL) tablet 1,000 mg 08-07 21:30: 00 08-07 20:27 :00 No 1000mg 1,000 mg, Oral, ONCE, 1 dose, On 08/07/21 at 1630, HERBER [facility] topiramate (TOPAMAX ORAL) 08-07 19:08: 08-07 00:00 :00 No 50mg Take 50 mg by mouth 2 (two) times daily. [facility] escitalopra m oxalate 20 mg tablet 08-07 19:08: 19 08-07 00:00 :00 No 20mg Take 20 mg by mouth daily. [facility] PHENYTOIN ORAL 08-07 19:08: 08-07 00:00 :00 No 200mg Take 200 mg by mouth 2 (two) times daily. [facility] fosphenytoi n (CEREBYX) 1,500 mg PE in NaCl 0.9% (NS) piggyback 08-07 18:45: 00 08-07 20:06 :00 No 1500mg{ phenyto in'equi valent} 1,500 mg PE, IV Piggyback, ONCE, 1 dose, On 08/07/21 at 1345, Administer over 30 Minutes, 100 mL [facility] escitalopra m oxalate 20 mg tablet 08-07 00:00: 00 10-07 04:59 :00 No [id number] 20mg Take 1 tablet by mouth daily for 60 days. [facility] topiramate (TOPAMAX) 50 mg tablet 08-07 00:00: 00 10-07 04:59 :00 No [id number] 50mg Take 1 tablet by mouth 2 (two) times daily for 60 days. [facility] phenytoin 50 mg chewable tablet 08-07 00:00: 00 10-07 04:59 :00 No [id number] 100mg Take 2 tablets by mouth 2 (two) times daily for 60 days. [facility] iohexol (OMNIPAQUE 350 BULK-150 mL) injection 120 mL 07-22 20:45: 00 07-22 20:34 :00 No 120mL 120 mL, Intravenou s, ONCE, 1 dose, Mon07/22/20 at 1445, Routine [facility] levETIRAcet am (KEPPRA) in NACL (ISO-OS) 1,000 mg/100 mL RTU 07-22 20:15: 00 07-22 19:45 :00 No 1000mg 1,000 mg, IV Infusion, ONCE, 1 dose, Mon07/22/20 at 1415, 100 mL [facility] topiramate (TOPAMAX ORAL) 09-07 17:19: 33 Yes 50mg Take 50 mg by mouth 2 (two) times daily. [facility] escitalopra m oxalate 20 mg tablet 09-07 17:19: 33 Yes 20mg Take 20 mg by mouth daily. [facility] PHENYTOIN ORAL 09-07 17:19: 33 Yes 200mg Take 200 mg by mouth 2 (two) times daily. [facility] Vital Signs Vital Name Observation Time Observation Value Comments S renetta Systolic blood pressure 2021-08-07 22:01:00 122 mm[Hg] [facility] Diastolic blood pressure 2021-08-07 22:01:00 74 mm[Hg] [facility] Heart rate 2021-08-07 22:01:00 68 /min Unive [facility] Oxygen saturation in Arterial blood by Pulse oximetry 2021-08-07 22:01:00 100 /min [facility] Respiratory rate 2021-08-07 20:10:00 16 /min [facility] Body temperature 2021-08-07 17:14:00 36.28 Patito [facility] Body weight 2021-08-07 17:14:00 81.647 kg [facility] Systolic blood pressure 2020-07-22 22:05:00 112 mm[Hg] [facility] Diastolic blood pressure 2020-07-22 22:05:00 70 mm[Hg] [facility] Heart rate 2020-07-22 22:05:00 89 /min Unive [facility] Respiratory rate 2020-07-22 22:05:00 18 /min [facility] Oxygen saturation in Arterial blood by Pulse oximetry 2020-07-22 22:05:00 99 /min [facility] Body temperature 2020-07-22 19:16:00 36.89 Patito [facility] Body weight 2020-07-22 19:14:00 81.647 kg [facility] Systolic blood pressure 2020-07-22 22:05:00 112 mm[Hg] [facility] Diastolic blood pressure 2020-07-22 22:05:00 70 mm[Hg] [facility] Heart rate 2020-07-22 22:05:00 89 /min Unive [facility] Respiratory rate 2020-07-22 22:05:00 18 /min [facility] Oxygen saturation in Arterial blood by Pulse oximetry 2020-07-22 22:05:00 99 /min [facility] Body temperature 2020-07-22 19:16:00 36.89 Patito [facility] Body weight 2020-07-22 19:14:00 81.647 kg [facility] Procedures Procedure Date / Time Performed Performing Clinicia n Source COVID-19 (ID NOW RAPID TESTING) 2021-08-07 18:39:00 Rafael Barr [facility] CT HEAD WO CONTRAST 2021-08-07 18:09:21 Jessie Barr [facility] LACTIC ACID WHOLE BLOOD 2021-08-07 17:41:00 Rafael Barr [facility] COMP. METABOLIC PANEL (71470) 2021-08-07 17:40:00 Rafael Barr [facility] CBC WITH DIFF 2021-08-07 17:40:00 Rafael Barr [facility] CT ABDOMEN PELVIS W CONTRAST 2020-07-22 20:38:41 [facility] 2020-07-22 19:30:00 Singer [facility] LIPASE 2020-07-22 19:29:00 Singer Mindy [facility] COMP. METABOLIC PANEL (70289) 2020-07-22 19:29:00 Singer [facility] CBC WITH DIFF 2020-07-22 19:29:00 Singer [facility] Encounters Start Date/Time End Date/Time Encounter Type Admission Type Attending Clinicians Care Facility Care Department Encounter ID Source 2020-12-20 02:24:00 Inpatient [facility] [id number] [facility] 2021-08-09 00:00:00 2021-08-09 00:00:00 Transition of Care Adrienne Kay [facility] [id number] [facility] 2021-08-07 12:50:00 2021-08-07 19:30:00 Inpatient LASHANDA Cardoza [facility] IVY [id number] [facility] 2021-08-07 12:50:00 2021-08-07 19:30:00 Hospital Encounter Rafael Barr Rai, Prashant Kumar [facility] 1..840.114 [id number] [facility] 2020-12-20 02:24:00 2020-12-20 02:24:00 Emergency [facility] [id number] [facility] 2020-07-22 13:20:00 2020-07-22 17:03:00 Emergency Mindy Moeller [facility] [id number] 2020-07-22 13:20:00 2020-07-22 17:03:00 Emergency X MINDY MOELLER [facility] ERT [id number] [facility] 2020-07-22 13:20:00 2020-07-22 17:03:00 Emergency Mindy Moeller [facility] [id number] [facility] Results Test Description Test Time Test Comments Results Result Co mments Source [facility] WITH [id number] 17:49:49* Test Item Value Reference Range Interpretation Comme nts WBC (test code = 6690-2) See_Comment [Automated [employer] ge] The system which generated this result transmitted reference range: 4.20 - 10.70 10*3/?L. The reference range was not used to interpret this result as normal/abnormal. RBC (test code = 789-8) See_Comment [Automated [employer] The system which generated this result transmitted reference range: 4.26 - 5.52 10*6/?L. The reference range was not used to interpret this result as normal/abnormal. HGB (test code = 718-7) 15.0 g/dL 12.2-16.4 HCT (test code = 4544-3) 45.4 % 38.4-49.3 MCV (test code = 787-2) 93.4 fL 81.7-95.6 MCH (test code = 785-6) 30.9 pg 26.1-32.7 MCHC (test code = 786-4) 33.0 g/dL 31.2-35.0 RDW-SD (test code = 37954-4) 44.9 fL 38.5-51.6 RDW-CV (test code = 788-0) 13.1 % 12.1-15.4 PLT (test code = 777-3) See_Comment [Automated messa ge] The system which generated this result transmitted reference range: 150 - 328 10*3/?L. The reference range was not used to interpret this result as normal/abnormal. MPV (test code = 69599-1) 9.5 fL 9.8-13.0 L NRBC/100 WBC (test code = 6936413418) See_Comment [Automated [employer] ssage] The system which generated this result transmitted reference range: 0.0 - 10.0 /100 WBCs. The reference range was not used to interpret this result as normal/abnormal. NRBC x10^3 (test code = 3287145548) <0.01 See_Comment [Automated messa ge] The system which generated this result transmitted reference range: 10*3/?L. The reference range was not used to interpret this result as normal/abnormal. GRAN MAT (NEUT) % (test code = 770-8) 58.7 % IMM GRAN % (test code = 0825640959) 0.20 % LYMPH % (test code = 736-9) 28.1 % MONO % (test code = 5905-5) 8.9 % EOS % (test code = 713-8) 3.5 % BASO % (test code = 706-2) 0.6 % GRAN MAT x10^3(ANC) (test code = 3848491331) 3.15 10*3/uL 1.99-6.95 IMM GRAN x10^3 (test code = 7759214417) <0.03 0.00-0.06 LYMPH x10^3 (test code = 731-0) 1.51 10*3/uL 1.09-3.23 MONO x10^3 (test code = 742-7) 0.48 10*3/uL 0.36-1.02 EOS x10^3 (test code = 711-2) 0.19 10*3/uL 0.06-0.53 BASO x10^3 (test code = 704-7) 0.03 10*3/uL 0.01-0.09 Lab Interpretation (test code = 04953-1) [facility]normal [facility],[id number] 02:55:00* Test Item Value Reference Range Interpretation Comme nts PCP Phencyclidine Screen,Urine (test code = PCPU) Negative Negative Amphetamine Screen,Urine (test code = AMPU) Positive Negative A Confirmation by GC/MS not routinely performed. Ifconfirmation is required, an order must be placed. Methadone Screen,Urine (test code = METHU) Negative Negative Opiate Screen,Urine (test code = UOPIS) Negative Negative Barbituates Screen,Urine (test code = BARBU) Negative Negative Benzodiazepines Screen,Urine (test code = UBENZS) Negative Negative Cocaine Screen,Urine (test code = UCOCS) Negative Negative Cannabinoid Screen,Urine (test code = UTHCS) Positive Negative A Propoxyphene Screen, Urine (test code = UPROP) Negative Negative UA, Urinalysis Rflx Cult/[id number] 02:55:00* Test Item Value Reference Range Interpretation Comme nts Color,Urine (test code = UCOL) Yellow Y Clarity,Urine (test code = UCLAR) Clear Clear PH,Urine (test code = UPH.XX) 6.0 5.5-8.5 Specific [place],Urine (test code = USG) 1.030 1.005-1.030 N Blood,Urine (test code = UBLD) Negative cells/uL Negative Protein,Urine (test code = UPRO) Negative mg/dL Negative Glucose,Urine (UA) (test code = UGLU) Negative mg/dL Negative Ketones,Urine (test code = UKET) Negative mg/dL Negative Nitrate,Urine (test code = UNIT) Negative Negative Bilirubin,Urine (test code = UBIL) Negative mg/dL Negative Urobilinogen,Urine (test code = UURO) 0.2 mg/dL Negative Leukocyte Esterase,Urine (test code = ULEU) Negative cells/uL Negative Coronavirus PCR, COVID19 [id number] 02:50:00* Test Item Value Reference Range Interpretation Comme nts Coronavirus PCR, COVID19 Rapid (test code = SARSCOV2) For use under Emergency Use Authorization (EUA) only. Coronavirus PCR, COVID19 Rapid (test code = VJOFRAA99.1) Reference Range: Negative SARS-CoV-2 PCR Result: (test code = SARS-CoV-2 PCR Result:) Negative by PCR COVID-19 Status: AsymptomaticComprehensive Metabolic [id number] 02:45:00* Test Item Value Reference Range Interpretation Comme nts SODIUM (test code = NA) 141.0 mmol/L 136.0-145.0 N Potassium,K (test code = K) 4.0 mmol/L 3.0-5.1 N Chloride (test code = CL) 109 mmol/L 98-107 H Carbon Dioxide (test code = CO2) 34 mmol/L 20-31 H Anion Gap (test code = GAP) -2 mmol/L 5-15 L Blood Urea Nitrogen (test co de = BUN) 14 mg/dL 9-23 N Creatinine (test code = CREATT) 1.20 mg/dL 0.55-1.02 H Creatinine Clr Calc Pharmacy (test code = CRCLPHA) 100.85 mL/min Estimated GFR ( [place] (test code = EGFRAA) > 60 mL/min/1.73m2 Estimated GFR (Non Afr [place] (test code = EGFRNAA) > 60 mL/min/1.73m2 BUN/Creatinine Ratio (test c ode = BCRATIO) 12 ratio 10-20 N Glucose (test code = GLU) 76 mg/dL 74-106 N Osmolality,Calculated (test code = OSMOC) 291.0 Calcium (test code = CA) 8.9 mg/dL 8.3-10.6 N Bilirubin,Total (test code = BILIT) 0.5 mg/dL 0.2-1.1 N Aspartate Amino Transferase (test code = AST) 18 U/L 0-34 N Alanine Aminotransferase (te st code = ALT) 18 U/L 10-49 N Total Protein (test code = TP) 6.5 g/dL 5.7-8.2 N Albumin Level (test code = ALB) 4.5 g/dL 3.2-4.8 N Globulin (test code = GLOB) 2.0 mg/dL 2.3-3.5 L Albumin/Globulin Ratio (test code = AGRATIO) 2.3 ratio 0.8-2.0 H Alkaline Phosphatase (test c ode = ALP) 55 U/L 46-116 N Ethanol [id number] 02:45:00* Test Item Value Reference Range Interpretation Comme nts Ethanol (test code = ETOH) < 3 mg/dL Complete Blood Count Auto [id number] 02:45:00* Test Item Value Reference Range Interpretation Comme nts White Blood Count (test code = WBCT) 8.4 x10 3/uL 4.4-10.5 N Red Blood Count (test code = RBC) 4.77 x10 6/uL 4.10-5.70 N Hemoglobin (test code = HGBT) 14.6 g/dL 13.4-17.4 N Hematocrit (test code = HCTT) 44.3 % 38.7-52.0 N Mean Corpuscular Volume (aissatou t code = MCV) 92.90 fL 80.00-100.00 N Mean Corpuscular Hemoglobin (test code = MCH) 30.6 pg 27.0-32.5 N Mean Corpuscular HGB Conc (test code = MCHC) 33.00 g/dL 32.00-37.50 N RDW Coefficient of Variation (test code = RDWCV) 12.3 % 11.5-14.5 N Platelet Count (test code = PLTT) 211.0 x10 3/uL 140.0-440.0 N Mean Platelet Volume (test code = MPV) 9.6 fL Immature Granulocytes % (Aut o) (test code = IMMGRAN%) 0.1 % 0.0-5.0 N Neutrophils % (Auto) (test code = NE%) 38.9 % 36.0-70.0 N Lymphocytes % (Auto) (test code = LY%) 40.7 % 12.0-44.0 N Monocytes % (Auto) (test cod e = MO%) 13.5 % 0.0-11.0 H Eosinophils % (Auto) (test code = EO%) 5.5 % 0.0-7.0 N Basophils % (Auto) (test cod e = BA%) 1.3 % 0.0-2.0 N Immature Granulocytes # (Aut o) (test code = IMMGRAN#) 0.01 x10 3/uL Neutrophils # (Auto) (test code = NE#) 3.3 x10 3/uL 1.6-7.4 N Lymphocytes # (Auto) (test code = LY#) 3.42 x10 3/uL 0.50-4.60 N Monocytes # (Auto) (test cod e = MO#) 1.13 x10 3/uL 0.00-1.20 N Eosinophils # (Auto) (test code = EO#) 0.46 x10 3/uL 0.00-0.74 N Basophils # (Auto) (test cod e = BA#) 0.11 x10 3/uL 0.00-0.21 N nRBC Abs (test code = NRBCA) 0 nRBC Pct (test code = NRBCP) 0 % CT ABDOMEN PELVIS W [id number] 20:47:49CT Abdomen and Pelvis with intravenous contrast. CLINICAL HISTORY: Acute generalized abdominal pain. DOSE: Up-to-date CT equipment and radiation dose reduction techniques wereemployed. CTDIvol: 8.06 mGy. DLP: 439 mGy-cm. TECHNIQUE : Contiguous axial imaging from the level of the lung basesthrough the pubic symphysis were performed after the uncomplicatedadministration of Omnipaque contrast material. ?Coronal and sagittalreconstructions were obtained. Auto mA and/or iterative reconstruction wereused to reduce radiation dose. FINDINGS: Study is compromised due to beam hardening artifact fromsuperimposed patient's upper extremities. Lower lungs: Clear. No pleural effusion or pericardial effusion. Nodefinite evidence of hiatal hernia. Liver, Gallbladder and Spleen: Liver is 15 cm in length and left lobe ofthe liver showed densely enhancing 2.6 cm mass (segment #2).Spleen is approximately 11x 3.5 cm. No calcified gallstones. Biliary ductsand [...] Bowel: Normal appendix. Mild constipation. Bladder and Repr oductive Organs: Unremarkable unopacified moderatelydistended urinary bladder. Bones: No acute findings. Soft tissues: Unremarkable. CONCLUSION:1. No acute intra-abdominal or pelvic abnormalities detected.2. Constipation. Normal appendix.3. Densely enhancing 2.6 cm size lesion in left lobe of the liver, ofuncertain etiology. Lesion may be further evaluated by triple phasenonemergent outpatient CTstudy. [facility], Radiant Results Inft User - 07/22/2020 2:48 PM CSTCT Abdomen and Pelvis with intravenous contrast.CLINICAL HISTORY: Acute generalized abdominal pain.DOSE: Up-to-date CT equipment and radiation dose reduction techniques wereemployed. CTDIvol: 8.06 mGy. DLP: 439 mGy-cm.TECHNIQUE : Contigu ous axial imaging from the level of the [...] glands.Kidneys and Ureters: No visible calculi in the renal collecting systems. No hydroureter or hydronephrosis. No enhancing kidney l esions visualized. Vessels: Normal.Retroperitoneum: No abnormal fluid or lymphadenopathy.Bowel: Normal appendix. Mild constipation.Bladder and Reproductive Organs: Unremarkable unopacified moderatelydistended urinary bladder.Bones: No acute findings.Soft tissues: Unremarkable.CONCLUSION:1. No acuteintra-abdominal or pelvic abnormalities detected.2. Constipation. Normal appendix.3. Densely enhancing 2.6 cm size lesion in left lobe of the liver, ofuncertain etiology. Lesion may be further evaluated by triple phasenonemergent outpatient CT study.[facility] WITH [id number] 20:44:00* Test Item Value Reference Range Interpretation Comme nts WBC (test code = 6690-2) See_Comment [Automated messa ge] The system which generated this result transmitted reference range: 4.20 - 10.70 10*3/?L. The reference range was not used to interpret this result as normal/abnormal. RBC (test code = 789-8) See_Comment [Automated [employer]] The system which generated this result transmitted reference range: 4.26 - 5.52 10*6/?L. The reference range was not used to interpret this result as normal/abnormal. HGB (test code = 718-7) 15.5 g/dL 12.2-16.4 HCT (test code = 4544-3) 46.0 % 38.4-49.3 MCV (test code = 787-2) 90.0 fL 81.7-95.6 MCH (test code = 785-6) 30.3 pg 26.1-32.7 MCHC (test code = 786-4) 33.7 g/dL 31.2-35 RDW-SD (test code = 78693-5) 39.6 fL 38.5-51.6 RDW-CV (test code = 788-0) 12.0 % 12.1-15.4 L PLT (test code = 777-3) See_Comment [Automated [employer] ge] The system which generated this result transmitted reference range: 150 - 328 10*3/?L. The reference range was not used to interpret this result as normal/abnormal. MPV (test code = 78888-8) 9.6 fL 9.8-13 L NRBC/100 WBC (test code = 9427556189) See_Comment [Automated [employer]] The system which generated this result transmitted reference range: 0.0 - 10.0 /100 WBCs. The reference range was not used to interpret this result as normal/abnormal. NRBC x10^3 (test code = 7089651644) <0.01 See_Comment [Automated [employer] ge] The system which generated this result transmitted reference range: 10*3/?L. The reference range was not used to interpret this result as normal/abnormal. GRAN MAT (NEUT) % (test code = 770-8) 31.9 % IMM GRAN % (test code = 6248457075) 0.00 % LYMPH % (test code = 736-9) 51.5 % MONO % (test code = 5905-5) 12.0 % EOS % (test code = 713-8) 3.5 % BASO % (test code = 706-2) 1.1 % GRAN MAT x10^3(ANC) (test code = 9945048403) 1.47 10*3/uL 1.99-6.95 L IMM GRAN x10^3 (test code = 0792894543) <0.03 0-0.06 LYMPH x10^3 (test code = 731-0) 2.37 10*3/uL 1.09-3.23 MONO x10^3 (test code = 742-7) 0.55 10*3/uL 0.36-1.02 EOS x10^3 (test code = 711-2) 0.16 10*3/uL 0.06-0.53 BASO x10^3 (test code = 704-7) 0.05 10*3/uL 0.01-0.09 Lab Interpretation (test code = 41856-0) Abnormal [facility]. METABOLIC PANEL (07705)2020-07-22 20:08:00* Test Item Value Reference Range Interpretation Comme nts NA (test code = 5659098218) 138 mmol/L 135-145 K (test code = 4354512253) 3.3 mmol/L 3.5-5 L CL (test code = 5022367258) 103 mmol/L 98-108 CO2 TOTAL (test code = 5834171194) 27 mmol/L 23-31 AGAP (test code = 8146476753) 2-16 BUN (test code = 8963214331) 12 mg/dL 7-23 GLUCOSE (test code = 4245416113) 118 mg/dL 70-110 H CREATININE (test code = 8800060179) 1.02 mg/dL 0.6-1.25 TOTAL BILI (test code = 7912447157) 0.6 mg/dL 0.1-1.1 CALCIUM (test code = 4025043098) 8.5 mg/dL 8.6-10.6 L T PROTEIN (test code = 7421389711) 6.7 g/dL 6.3-8.2 ALBUMIN (test code = 9336276833) 4.2 g/dL 3.5-5 ALK PHOS (test code = 0901555175) 67 U/L 34-122 ALTv (test code = 1742-6) 50 U/L 5-50 AST(SGOT) (test code = 3717525748) 30 U/L 13-40 eGFR Calculation (Non-) (test code = 0734052771) mL/min/1.73m2 eGFR Calculation () (test code = 7383334680) mL/min/1.73m2 MARKEL (test code = MARKEL) Association [...] imaging tests). Lab Interpretation (test code = 81998-1) [facility]normal [facility] 20:08:00* Test Item Value Reference Range Interpretation Comme nts LIPASE (test code = 4725902324) 34 U/L 0-220 Lab Interpretation (test cod e = 18586-6) Normal [facility] Whole [id number] 19:37:00* Test Item Value Reference Range Interpretation Comme nts LACTIC ACID (test code = 4469174716) 2.56 mmol/L 0.5-2.2 H Lab Interpretation (test cod e = 52922-3) Abnormal [facility]"
[2023-11-15] MEDS ORDERED: Levofloxacin500mg IV 500 MG/100 ML BAG IV ONE (21:05)
[2023-11-15 21:12] LABS: Absolute Neutrophil 4.8 K/uL (1.8-8.0); Basophils % 0.3 % (0-1.3); Eosinophils % 0.4 % (0-4.4); Hematocrit 42.5 % (39.6-49.0); Hemoglobin 14.5 g/dL (13.6-17.9); Lymphocytes % 25.7 % (15.3-44.8); MCHC 34.1 g/dL (32.0-36.0); MCV 90.8 fL (80-100); MPV 7.4 fL (7.6-11.3); Monocytes % 13.2 % (3.3-12.3); Neutrophils % 60.4 % (41.7-73.7); Nucleated Red Blood Cells % 0.2 % (0-0); Platelets 197 thou/uL (152-406); RBC Red Blood Cell Count 4.68 M/uL (4.33-5.43); Red Cell Distribution Width 12.9 % (12.1-15.2)
[2023-11-15 21:37] LABS: Anion Gap 5.7 mEq/L (5.0-15.0); Potassium 3.7 mEq/L (3.5-5.1)
--- NOTE | 2023-11-15 21:39 | EDPHYS ---
Physician Documentation [facility] Name: Kirk Cota Age: 28 yrs Sex: Male : 1995 Arrival Date: 11/15/2023 Time: 20:29 Bed 20 Private MD: ED Physician Dora Rockwell HPI: 11/14 20:41 This 28 yrs old Male presents to ER via Unassigned with complaints of Abscess. sp3 20:41 28-year-old male with no past medical history presents with left buttock rash and sp3 possible abscess which is been going on for 3 to 4 days. He denies any other symptoms other than localized pain. He denies fever, headache, chest pain, shortness of breath, nausea, vomiting, diarrhea, rash, known sick contacts, travel history, or any other signs or symptoms on ROS at this time.. Historical: - Allergies: 20:42 No Known Allergies; tm6 - PMHx: 20:42 Seizures; Bipolar disorder; tm6 - PSHx: 20:42 None; tm6 - Immunization history:: Client reports receiving the 2nd dose of the Covid vaccine. - Infectious Disease History:: Denies. - Social history:: Smoking status: Patient reports the use of cigarette tobacco products, smokes one pack cigarettes per day. Patient/guardian denies using alcohol. ROS: 20:42 Constitutional: Negative for fever, chills, and weight loss, Eyes: Negative for injury, sp3 pain, redness, and discharge, ENT: Negative for injury, pain, and discharge, Neck: Negative for injury, pain, and swelling, Cardiovascular: Negative for chest pain, palpitations, and edema, Respiratory: Negative for shortness of breath, cough, wheezing, and pleuritic chest pain, Abdomen/GI: Negative for abdominal pain, nausea, vomiting, diarrhea, and constipation, Back: Negative for injury and pain, MS/Extremity: Negative for injury and deformity, Neuro: Negative for headache, weakness, numbness, tingling, and seizure, Psych: Negative for depression, anxiety, suicide ideation, homicidal ideation, and hallucinations, Endocrine: Negative for neck swelling, polydipsia, polyuria, polyphagia, and marked weight changes, Hematologic/Lymphatic: Negative for swollen nodes, abnormal bleeding, and unusual bruising, 20:42 All other systems are negative, Exam: 20:42 Constitutional: This is a well developed, well nourished patient who is awake, alert, sp3 and in no acute distress. Head/Face: Normocephalic, atraumatic. Neck: Trachea midline, no thyromegaly or masses palpated, and no cervical lymphadenopathy. Supple, full range of motion without nuchal rigidity, or vertebral point tenderness. No Meningismus. Chest/axilla: Normal chest wall appearance and motion. Nontender with no deformity. No lesions are appreciated. Cardiovascular: Regular rate and rhythm with a normal S1 and S2. No gallops, murmurs, or rubs. Normal PMI, no JVD. No pulse deficits. Respiratory: Lungs have equal breath sounds bilaterally, clear to auscultation and percussion. No rales, rhonchi or wheezes noted. No increased work of breathing, no retractions or nasal flaring. Abdomen/GI: Soft, non-tender, with normal bowel sounds. No distension or tympany. No guarding or rebound. No evidence of tenderness throughout. Back: No spinal tenderness. No costovertebral tenderness. Full range of motion. Neuro: Awake and alert, GCS 15, oriented to person, place, time, and situation. Cranial nerves II-XII grossly intact. Motor strength 5/5 in all extremities. Sensory grossly intact. Cerebellar exam normal. Normal gait. Psych: Awake, alert, with orientation to person, place and time. Behavior, mood, and affect are within normal limits. 20:42 Skin: Patient has 1 cm area of probable abscess not fluctuant whatsoever. Surrounding this is approximately 5 to 6 cm circumferential area of erythema consistent with cellulitis. Vital Signs: 20:39 BP 118 / 86; Pulse 93; Resp 18; Temp 98(TE); Pulse Ox 97% on R/A; Weight 77.11 kg; tm6 Height 6 ft. 1 in. ; Pain 8/10; 22:17 BP 125 / 70; Pulse 98; Resp 19; Temp 98(TE); Pulse Ox 100% on R/A; Pain 4/10; tm6 20:39 Body Mass Index 22.43 (77.11 kg, 185.42 cm) tm6 20:39 Pain Scale: Adult tm6 22:17 Pain Scale: Adult tm6 MDM: 20:33 Patient medically screened. sp3 20:43 Data reviewed: vital signs, nurses notes, lab test result(s). ED course: 28-year-old sp3 male with cellulitis and probable small abscess. Abscess not fluctuant and not ready for drainage. Also overlying cellulitis is a relative contraindication. Will treat with Levaquin IV here and check routine labs and discharge patient home on p.o. Levaquin and warm compresses and told to return if abscess does not self resolve or becomes fluctuant.. 11/14 20:33 Order name: CBC with Diff; Complete Time: 21:29 sp3 11/14 20:33 Order name: BMP; Complete Time: 21:38 sp3 11/14 20:33 Order name: IV Saline Lock; Complete Time: 20:36 sp3 Administered Medications: 21:14 Drug: levofloxacin IVPB 500 mg 100 ml IVPB once over 60 mins Volume: 100 ml; Route: tm6 IVPB; Infused Over: 60 mins; Site: left antecubital; Disposition Summary: 11/15/23 21:39 Discharge Ordered Notes: Location: Home sp3 Condition: Stable sp3 Diagnosis - Cellulitis, abscess sp3 Followup: sp3 - With: Private Physician - When: Upon discharge from the Emergency Department - Reason: Continuance of care Discharge Instructions: - Discharge Summary Sheet sp3 - Skin Abscess sp3 - Cellulitis, Adult sp3 Forms: - Medication Reconciliation Form sp3 - Antibiotic Education sp3 - Prescription Opioid Use sp3 - Patient Portal Instructions sp3 - Leadership Thank You Letter sp3 Prescriptions: - Clindamycin HCl 300 mg Oral Capsule - take 1 capsule ORAL route every 6 hours for 10 days; 40 capsule; Refills: 0, sp3 Product Selection Permitted - Bactrim DS 800-160 mg Oral Tablet - take 1 tablet ORAL route every 12 hours for 10 days; 20 tablet; Refills: 0, sp3 Product Selection Permitted Signatures: Dispatcher [employer] EDMS Dora Rockwell MD MD sp3 Fabian Tate RN RN tm6
--- NOTE | 2023-11-15 21:39 | ER ---
Nurse's Notes [facility] Name: Kirk Cota Age: 28 yrs Sex: Male : 1995 Arrival Date: 11/15/2023 Time: 20:29 Bed 20 Private MD: Diagnosis: Cellulitis, abscess Presentation: 11/14 20:39 Chief complaint: Patient states: abscess on right buttocks appearing 2 days ago. Is red tm6 and swollen, causing pain. Coronavirus screen: Vaccine status: Patient reports receiving the 2nd dose of the covid vaccine. Ebola Screen: Patient negative for fever greater than or equal to 101.5 degrees Fahrenheit, and additional compatible Ebola Virus Disease symptoms Patient denies exposure to infectious person. Patient denies travel to an Ebola-affected area in the 21 days before illness onset. No symptoms or risks identified at this time. Initial Sepsis Screen: Does the patient meet any 2 criteria? No. Patient's initial sepsis screen is negative. Does the patient have a suspected source of infection? No. Patient's initial sepsis screen is negative. Risk Assessment: Do you want to hurt yourself or someone else? Patient reports no desire to harm self or others. Onset of symptoms was November 13, 2023. 20:39 Method Of Arrival: EMS: [facility] tm6 20:39 Acuity: MIRTA 3 tm6 Triage Assessment: 20:42 General: Appears uncomfortable, Behavior is calm, cooperative. Pain: Complains of pain tm6 in right gluteus ambrosio Pain does not radiate. Pain currently is 5 out of 10 on a pain scale. Pain began 2-3 days ago. EENT: No signs and/or symptoms were reported regarding the EENT system. Neuro: Level of Consciousness is awake, alert, obeys commands, Oriented to person, place, time, situation. Cardiovascular: No deficits noted. Patient's skin is warm and dry. Respiratory: Airway is patent Respiratory effort is even, unlabored, Respiratory pattern is regular, symmetrical. GI: No signs and/or symptoms were reported involving the gastrointestinal system. Abdomen is flat, non-distended. : No signs and/or symptoms were reported regarding the genitourinary system. Derm: Abscess located on right gluteus ambrosio is golf ball sized, has no drainage, is red, is raised, Reports pain. Musculoskeletal: No signs and/or symptoms reported regarding the musculoskeletal system. Historical: - Allergies: 20:42 No Known Allergies; tm6 - PMHx: 20:42 Seizures; Bipolar disorder; tm6 - PSHx: 20:42 None; tm6 - Immunization history:: Client reports receiving the 2nd dose of the Covid vaccine. - Infectious Disease History:: Denies. - Social history:: Smoking status: Patient reports the use of cigarette tobacco products, smokes one pack cigarettes per day. Patient/guardian denies using alcohol. Screenin:44 [facility] ED Fall Risk Assessment (Adult) History of falling in the last 3 months, tm6 including since admission No falls in past 3 months (0 pts) Confusion or Disorientation No (0 pts) Intoxicated or Sedated No (0 pts) Impaired Gait No (0 pts) Mobility Assist Device Used No (0 pt) Altered Elimination No (0 pt) Score/Fall Risk Level 0 - 2 = Low Risk Oriented to surroundings, Maintained a safe environment, Educated pt \T\ family on fall prevention, incl call for assistance when getting out of bed. Abuse screen: Denies threats or abuse. Denies injuries from another. Nutritional screening: No deficits noted. Tuberculosis screening: No symptoms or risk factors identified. Assessment: 20:44 Reassessment: see triage assessment. tm6 21:42 Reassessment: discharge pending completion of IV antibiotics. tm6 22:17 Reassessment: Patient appears in no apparent distress at this time. Patient and/or tm6 family updated on plan of care and expected duration. Pain level reassessed. Patient is alert, oriented x 3, equal unlabored respirations, skin warm/dry/pink. Vital Signs: 20:39 BP 118 / 86; Pulse 93; Resp 18; Temp 98(TE); Pulse Ox 97% on R/A; Weight 77.11 kg; tm6 Height 6 ft. 1 in. ; Pain 8/10; 22:17 BP 125 / 70; Pulse 98; Resp 19; Temp 98(TE); Pulse Ox 100% on R/A; Pain 4/10; tm6 20:39 Body Mass Index 22.43 (77.11 kg, 185.42 cm) tm6 20:39 Pain Scale: Adult tm6 22:17 Pain Scale: Adult tm6 ED Course: 20:31 Patient arrived in ED. sp3 20:32 Dora Rockwell MD is Attending Physician. sp3 20:36 Fabian Tate, RN is Primary Nurse. tm6 20:42 Triage completed. tm6 20:42 Arm band placed on right wrist. tm6 20:44 Patient has correct armband on for positive identification. Bed in low position. Call tm6 light in reach. Side rails up X2. Provided Education on: use of call soto. Client placed on continuous cardiac and pulse oximetry monitoring. NIBP monitoring applied. Pulse ox on. NIBP on. Door closed. Noise minimized. Warm blanket given. 20:44 Maintain EMS IV. Dressing intact. Good blood return noted. Site clean \T\ dry. Gauge \T\ tm 6 site: 18g LAC. 21:00 BMP Sent. tm6 21:00 CBC with Diff Sent. tm6 22:18 No provider procedures requiring assistance completed. IV discontinued, intact, tm6 bleeding controlled, No redness/swelling at site. Pressure dressing applied. Administered Medications: 21:14 Drug: levofloxacin IVPB 500 mg 100 ml IVPB once over 60 mins Volume: 100 ml; Route: tm6 IVPB; Infused Over: 60 mins; Site: left antecubital; Medication: 20:44 VIS not applicable for this client. tm6 Outcome: 21:39 Discharge ordered by . sp3 22:18 Discharged to home via wheelchair, with friend, tm6 22:18 Condition: stable 22:18 Discharge instructions given to patient, Instructed on discharge instructions, follow up and referral plans. medication usage, Demonstrated understanding of instructions, follow-up care, medications, Prescriptions given X 2, 22:26 Patient left the ED. tm6 Signatures: Dora Rockwell MD MD sp3 Fabian Tate, RN RN tm6
[2023-11-15 23:03] VITALS: BP 125/70; TEMP 98; O2SAT 100
== END 2023-11-15 22:26 | disposition home or self-care (01) ==
LOC: ER 20:29
DX: L02.31 Cutaneous abscess of buttock (principal); L03.317 Cellulitis of buttock
CPT/HCPCS: 36415; 80048; 85025; 96374; 99284